=== PATIENT | male | born 1955 | race Two or more races ===

== ENCOUNTER → 2022-11-27 14:56 | Outpatient (BNVA) | payer MEDICARE, MEDICAID, SELFPAY | PROVIDERS: PCP Internal Medicine Rheumatology; Visit Provider Internal Medicine Rheumatology | DX: M65.9 Synovitis and tenosynovitis, unspecified (principal); M17.0 Bilateral primary osteoarthritis of knee; M06.9 Rheumatoid arthritis, unspecified; Z79.60 Long term (current) use of unspecified immunomodulators and immunosuppressants | CPT/HCPCS: 20550; 99212 ==

== ENCOUNTER 2022-12-27 09:44 | Outpatient (REF) | payer MEDICARE, MEDICAID, SELFPAY ==
[2022-12-27 10:32] LABS: MANUAL DIFF FLAG NO
[2022-12-27 10:38] LABS: Basophils Percent Auto 0.5 % (0-2); Eosinophils Absolute Auto 0.4 X10*3/uL (0.0-0.4); Eosinophils Percent Auto 7.1 % (0-4); Hematocrit 47.6 % (42.0-52.0); Hemoglobin 15.9 g/dl (14.0-18.0); Imm Gran Abs Auto 0.01 X10*3/uL (0.00-0.03); Imm Gran Pct Auto 0.2 % (0.0-0.4); Lymphocytes Absolute Auto 1.5 X10*3/uL (1.2-4.9); Lymphocytes Percent Auto 26.3 % (20-40); Mean Corpuscular HGB Conc 33.4 g/dl (31.0-36.0); Mean Corpuscular Hemoglobin 32.4 pg (27.0-33.0); Mean Corpuscular Volume 97.1 fL (80.0-98.0); Mean Platelet Volume 12.5 fL (9.4-12.4); Monocytes Absolute Auto 0.4 X10*3/uL (0.1-1.2); Monocytes Percent Auto 7.8 % (2-11); Neutrophils Absolute Auto 3.2 x10*3/uL (2.0-8.3); Neutrophils Percent Auto 58.1 % (45-73); Platelet Count 129 X10*3/uL (160-400); Red Cell Distribution Width 13.1 % (11.0-16.0); White Blood Count 5.5 X10*3/uL (4.8-10.8)
[2022-12-27 11:18] LABS: Alanine Aminotransferase 22 U/L (0-40); Albumin Level 4.1 g/dL (3.5-5.0); Alkaline Phosphatase 65 U/L (39-117); Anion Gap 13 (12-20); Aspartate Amino Transferase 16 U/L (5-37); Bilirubin Total 0.4 mg/dL (0.0-1.0); Blood Urea Nitrogen 16 mg/dL (9-16); C Reactive Protein 0.36 mg/dL (< or = 0.50); Calcium 9.9 mg/dL (8.4-10.2); Carbon Dioxide 25 mmol/L (22-29); Chloride 109 mmol/L (96-108); Estimated Glomerular Filt Rate > 60; Glucose Random 91 mg/dL (60-115); Potassium 4.6 mmol/L (3.3-5.1); Sodium 142 mmol/L (135-145)
[2022-12-27 11:24] LABS: Erythrocyte Sedimentation Rate 5 MM/HR (0-15)
== END 2022-12-27 09:45 | disposition home or self-care (01) ==
LOC: HO.10HDL 09:44
PROVIDERS: Visit Provider Internal Medicine Rheumatology
DX: M06.9 Rheumatoid arthritis, unspecified (principal); Z79.60 Long term (current) use of unspecified immunomodulators and immunosuppressants; Z79.899 Other long term (current) drug therapy
CPT/HCPCS: 36415; 80053; 85025; 85652; 86140

== ENCOUNTER 2023-01-09 08:05 | Outpatient (AMB) | payer MEDICARE, MEDICAID, SELFPAY ==
--- NOTE | 2023-01-09 08:06 | MHC.OFFVIS ---
Intake Vital Signs 01/09/23 08:08 Height 5 ft 7 in Weight 185 lb 13.595 oz BMI 29.1 BP 108/68 Blood Pressure Location Lt brachial Position Sitting Pulse 86 Pulse Source Pulse Oximeter Temp 97 F Temp Source Skin Pulse Oximetry (%) 96 Oxygen Delivery Method Room Air Intake Visit Reasons: Joint pain Intake Note: Here for joint pain. Would like to discuss medication tx. Paper Testing Supervisor Required: No Accompanied by: Self / Same As Patient Allergies tocilizumab [From Actemra] Adverse Reaction (Severe, Verified 01/09/23 08:06) Blister, muscle pain Sulfa (Sulfonamide Antibiotics) Adverse Reaction (Mild, Verified 01/09/23 08:06) Hives, Urticaria tetracycline Adverse Reaction (Mild, Verified 01/09/23 08:06) Hives, Urticaria HPI HPI Comments History of Present Illness Details The patient returns for evaluation of his rheumatoid arthritis and flexor tenosynovitis. I had injected the 3rd and 4th flexor tendon sheaths in the left hand at last visit and now they are doing okay. He reports some catching and pain in the right 3rd flexor tendon. There is discomfort across the PIP joints and occasionally around the elbows. He remains on methotrexate 20 mg weekly with folic acid 1 mg daily and meloxicam 15 mg daily. He seems to be tolerating these medications without any problems. There still is intermittent hand numbness but that seems to be not as bothersome as previously. His fingers in the left hand function better. [facility] Medical History (Updated 11/27/22 @ 17:02 by Aren Hawley MD) Arthralgia GERD (gastroesophageal reflux disease) Hyperlipidemia Osteoarthritis of both knees Rheumatoid arthritis Surgical History H/O arthroscopic knee surgery H/O prostatectomy History of carpal tunnel release of both wrists Hx of colonoscopy Family History Father Stroke Social History (Updated 01/09/23 @ 08:12 by NANO Hebert) Alcohol intake: former Patient Tobacco Use Status: Former Tobacco user Years Smoked: Ocassionally smokes Hookah Current occupational status: retired Review of Systems Const Details: Negative for appetite change, weight change, fever, chills, malaise and fatigue Eyes Details: Negative for vision change, dry eyes,headaches and dizziness ENT Details: Negative for hearing change, tinnitus, oral ulcer, nose bleeds and oral dryness. Card Details: Negative chest pain, edema and syncope Resp Details: Negative for SOB, cough and wheezing GI Details: Negative indigestion/heartburn, nausea, abdominal pain, bowel changes, diarrhea, constipation and bloody stool. Santiago/Lymph Details: Negative for excessive bruising or bleeding. Physical Exam Vital Signs: Last Vital Signs Temp 97 F 01/09/23 08:08 Pulse 86 01/09/23 08:08 BP 108/68 01/09/23 08:08 Pulse Ox 96 01/09/23 08:08 Oxygen Delivery Method Room Air 01/09/23 08:08 BMI result Body Mass Index 29.1 APPEARANCE: Patient in no acute distress EYES no redness, pupils equal and reactive to light, eyelids normal Cervical Spine:.? Mild discomfort with extremes of normal range of motion.? Some cervical muscle tenderness. Thoracic Spine:.? No scoliosis.? No tenderness on palpation. Lumbar Spine:.? Alignment normal.? Full range of motion without pain, no tenderness. Chest Wall:.? No tenderness, swelling, increased warmth or erythema. Hands:.? Right:? There is some pain with range of motion at the 3rd and 4th fingers and some triggering at the 3rd and 4th fingers; the tenderness and triggering is more prominent at the 3rd finger.? Today there is no MCP tenderness or swelling. There is some mild bony enlargement with tenderness at the thumb IP in all the PIP joints.? ? There is no sensory loss or thenar atrophy.? Left: Pain-free motion of the fingers. No flexor tendon triggering or tenderness. No MCP swelling or tenderness. There is some slight thickening at the PIP joints and they are minimally tender. No sensory loss or thenar atrophy.? Wrists:.? Mild pain with flexion or extension at 75 degrees with some slight dorsal tenderness but no swelling, increased warmth or erythema. Elbows:. Normal pain-free range of motion without tenderness, swelling, increased warmth or erythema over the joint spaces. There is some slight lateral epicondylar tenderness. Shoulders:.?? Full range of motion with mild discomfort at the extremes of range of motion.? There is slight anterior and posterior tenderness without adenopathy, abductor weakness, soft tissue swelling, increased warmth or erythema. Hips:? Full range of motion with some mild lumbar discomfort at the extremes of internal and external rotation. No groin pain with motion.. Hip bursa:.? No tenderness. Knees:.?? Normal pain-free range of motion with mild patellofemoral crepitus.? There is bilateral medial compartment tenderness without effusions, soft tissue swelling, increased warmth or erythema.? Ankles:? Normal pain-free range of motion without tenderness, swelling, increased warmth or erythema. Feet:.? Normal pain-free range of motion with mild tenderness across the MTP joints.? There is 1st MTP bony enlargement but no soft tissue swelling, increased warmth or erythema. Tender points:.? Mild tenderness to digital palpation at the trapezius, second rib, lateral epicondyle, knees bilaterally. ? arge, no bleeding THROAT: Oral mucosa moist, no ulcerations NECK: No thyromegaly or masses, no adenopathy, trachea midline. HEART: Regulrar rhythm, S1-S2 heard, no murmurs, rubs or gallops. LUNG: Clear to percussion and auscultation ABD: Normal bowel sounds, no organomegaly, masses or tenderness. EXTREMITIES: No edema, no calf tenderness, normal peripheral pulses. NEURO: Oriented and alert x3. No focal weakness. Reflexes symmetric. Gait normal. SKIN: No inflammatory or neoplastic lesions. Normal color and turgor JOINT EXAM:.?? Cervical Spine:.? Full range of motion without pain; no tenderness. Thoracic Spine:.? No scoliosis.? No tenderness on palpation. Lumbar Spine:.? Alignment normal.? Full range of motion without pain, no tenderness. Chest Wall:.? No tenderness, swelling, increased warmth or erythema. Hands:.? Normal pain-free range of motion without tenderness, swelling, increased warmth or erythema. Able to make a full fist and has a good shot core drill operator helper strength. Wrists:.? Normal pain-free range of motion without tenderness, swelling, increased warmth or erythema. Elbows:. Normal pain-free range of motion without tenderness, swelling, increased warmth or erythema. Shoulders:.?? Full range of motion without pain. No tenderness, weakness, swelling, increased warmth or erythema. Hips:.? Full range of motion without pain. Hip bursa:.? No tenderness. Knees:.?? Normal pain-free range of motion without tenderness, swelling, increased warmth or erythema.? There is no effusion or crepitation Ankles:.? Normal pain-free range of motion without tenderness, swelling, increased warmth or erythema. Feet:.? Normal pain-free range of motion without tenderness, swelling, increased warmth or erythema. Tender points:.? No tenderness to digital palpation at the occiput, trapezius, second rib, lateral epicondyle, knees, greater trochanter and gluteal area bilaterally. ? Results Reviewed Results Reviewed: Laboratory Tests 12/27/22 12/27/22 12/27/22 09:50 09:50 09:50 WBC 5.5 Hgb 15.9 ESR 5 Creatinine 0.81 AST 16 ALT 22 C-Reactive Protein 0.36 Assessment & Plan Assessment & Plan (1) Flexor tenosynovitis of finger: Code(s): M65.9 - Synovitis and tenosynovitis, unspecified (2) Long-term use of immunosuppressant medication: Code(s): Z79.60 - longterm (current) use of unspecified immunomodulators and immunosuppressants (3) Rheumatoid arthritis: Comment: Methotrexate started 10/11 Methotrexate loosing effect 05/14- Humira added 06/17 - Xeljanz in place of Humira( Humira ineffective) 08/2021-11/2021 trial of [address]um[address] in place of Xeljanz Trial of Enbrel late 2021 - 09/2022 - not helpful Trial of Actemra - oral ulcers after 2nd dose Code(s): M06.9 - Rheumatoid arthritis, unspecified Plan At this point it appears the rheumatoid arthritis synovitis is controlled with current treatment. The lab work looks good so we will continue with the methotrexate and meloxicam as above. He is having some symptoms with discomfort in the PIP joints and that looks more like osteoarthritis than active RA. The flexor tenosynovitis on the left hand has improved with injection. I offered him today an injection in the 3rd and 4th flexor tendons on the right but he does not think it is bad enough at this point. We will continue with treatment and plan to see him back in 2 months. Lab work before that visit is recommended. Orders: Orders Alanine Aminotransferase Today M06.9 - Rheumatoid arthritis, unspecified, Z79.899 - Other buttermaker helper (current) drug therapy Aspartate Amino Transferase Today M06.9 - Rheumatoid arthritis, unspecified, Z79.899 - Other buttermaker helper (current) drug therapy Creatinine Today M06.9 - Rheumatoid arthritis, unspecified, Z79.899 - Other buttermaker helper (current) drug therapy C Reactive Protein Today M06.9 - Rheumatoid arthritis, unspecified Complete Blood Count Auto Diff Today M06.9 - Rheumatoid arthritis, unspecified, Z79.899 - Other group home (current) drug therapy Erythrocyte Sedimentation Rate Today M06.9 - Rheumatoid arthritis, unspecified Coding Level of Care Code Est Pt Level 3 (42211) Diagnoses Flexor tenosynovitis of finger M65.9 Long-term use of immunosuppressant medication Z79.60 Rheumatoid arthritis M06.9
[2023-01-09 08:08] VITALS: BP 108/68; PULSE 86; TEMP 36.1; O2SAT 96; BMI 29.1
== END 2023-01-09 08:40 | disposition home or self-care (01) ==
PROVIDERS: PCP Internal Medicine Rheumatology; Visit Provider Internal Medicine Rheumatology
DX: M65.9 Synovitis and tenosynovitis, unspecified (principal); Z79.60 Long term (current) use of unspecified immunomodulators and immunosuppressants; M06.9 Rheumatoid arthritis, unspecified
CPT/HCPCS: 99213

== ENCOUNTER → 2023-01-09 08:05 | Outpatient (BNVA) | payer MEDICARE, MEDICAID, SELFPAY | PROVIDERS: PCP Internal Medicine Rheumatology; Visit Provider Internal Medicine Rheumatology | DX: M65.9 Synovitis and tenosynovitis, unspecified (principal); M06.9 Rheumatoid arthritis, unspecified; Z79.631 Long term (current) use of antimetabolite agent | CPT/HCPCS: 99212 ==

== ENCOUNTER 2023-03-07 10:40 | Outpatient (REF) | payer MEDICARE, MEDICAID, SELFPAY | END 2023-03-07 10:41 | disposition home or self-care (01) | LOC: HO.10HDL 10:40 | PROVIDERS: Visit Provider Internal Medicine Rheumatology | DX: M06.9 Rheumatoid arthritis, unspecified (principal); Z79.899 Other long term (current) drug therapy | CPT/HCPCS: 36415; 82565; 84450; 84460; 85025; 85652; 86140 ==

== ENCOUNTER 2023-03-12 15:09 | Outpatient (AMB) | payer MEDICARE, MEDICAID, SELFPAY ==
[2023-03-12 15:28] VITALS: BP 100/72; PULSE 106; O2SAT 96; BMI 29.4
--- NOTE | 2023-03-12 15:28 | MHC.OFFVIS ---
Intake Vital Signs 03/12/23 15:28 Height 5 ft 7 in Weight 187 lb 9.814 oz BMI 29.4 BP 100/72 Blood Pressure Location Lt brachial Position Sitting Pulse 106 H Pulse Source Pulse Oximeter Pulse Oximetry (%) 96 Oxygen Delivery Method Room Air Intake Visit Reasons: ra Intake Note: Patient presents today to follow up on RA. c/o multiple joint pain Allergies tocilizumab [From Actemra] Adverse Reaction (Severe, Verified 03/12/23 15:31) Blister, muscle pain Sulfa (Sulfonamide Antibiotics) Adverse Reaction (Mild, Verified 03/12/23 15:31) Hives, Urticaria tetracycline Adverse Reaction (Mild, Verified 03/12/23 15:31) Hives, Urticaria HPI HPI Comments History of Present Illness Details The patient returns for evaluation of his rheumatoid arthritis and osteoarthritis. He remains on 20 mg weekly methotrexate, folic acid 1 mg daily, and meloxicam 15 mg daily. He continues to report fairly widespread pain mostly in the hands but also in the shoulders, lower back, knees and feet. He also has some stiffness in the mornings particularly in the hands. There is occasional catching of the 4th finger bilaterally. He was put on some Mounjaro weekly injections by his primary doctor for weight loss. That seems to be helping. [facility] Medical History (Updated 03/12/23 @ 16:38 by Aren Hawley MD) Hyperlipidemia GERD (gastroesophageal reflux disease) Rheumatoid arthritis Osteoarthritis of both knees Arthralgia Surgical History Hx of colonoscopy H/O arthroscopic knee surgery History of carpal tunnel release of both wrists H/O prostatectomy Family History Father Stroke Social History Alcohol intake: former Patient Tobacco Use Status: Former Tobacco user Years Smoked: Ocassionally smokes Hookah Current occupational status: retired Review of Systems Const Details: Some intentional weight loss. Fatigue is well. Negative for appetite change, fever, chills, malaise Eyes Details: Negative for vision change, dry eyes,headaches and dizziness ENT Details: Negative for hearing change, tinnitus, oral ulcer, nose bleeds and oral dryness. Card Details: Negative chest pain, edema and syncope Resp Details: Negative for SOB, cough and wheezing GI Details: Negative indigestion/heartburn, nausea, abdominal pain, bowel changes, diarrhea, constipation and bloody stool. Psych Details: Negative for anxiety, depression and stress Endo Details: Negative for polyuria and polydypsia Santiago/Lymph Details: Negative for excessive bruising or bleeding. Physical Exam Vital Signs: Last Vital Signs Pulse 106 H 03/12/23 15:28 BP 100/72 03/12/23 15:28 Pulse Ox 96 03/12/23 15:28 Oxygen Delivery Method Room Air 03/12/23 15:28 BMI result Body Mass Index 29.4 APPEARANCE: Patient in no acute distress EYES no redness, pupils equal and reactive to light, eyelids normal. No temporal artery tenderness, redness or swelling. EXTREMITIES: No edema, no calf tenderness, normal peripheral pulses. NEURO: Oriented and alert x3. No focal weakness. Reflexes symmetric. Gait normal. No sensory loss SKIN: No inflammatory or neoplastic lesions. Normal color and turgor JOINT EXAM: Cervical Spine:.? Mild discomfort with extremes of normal range of motion.? Some cervical muscle tenderness. Thoracic Spine:.? No scoliosis.? No tenderness on palpation. Lumbar Spine:.? Alignment normal.? Full range of motion without pain, no tenderness. Chest Wall:.? No tenderness, swelling, increased warmth or erythema. Hands:.? Right:? There is some pain with range of motion at the 3rd and 4th fingers. There is mild tenderness at the 2nd through 4th MCP joints without swelling. There is some mild tenderness across the 2nd through 4th flexor tendons without triggering. There is some bony enlargement at the thumb IP and PIP joints without tenderness. There is no D IP joint swelling or tenderness. There is no thenar atrophy or sensory loss.? Left: Mild pain with the 3rd and think 4th finger range of motion. There is mild tenderness in the 1st MCP without swelling. There is tenderness along the 2nd through 4th flexor tendons without triggering. There is some mild nontender bony enlargement at the 2nd, 3rd and 4th 5th PIP joints. There is slight tenderness a the 4th PIP joint without swelling. There is some slight thickening at the PIP joints and they are minimally tender. No sensory loss or thenar atrophy.? Wrists:.? Mild pain with flexion or extension at 75 degrees with some slight dorsal tenderness but no swelling, increased warmth or erythema. Elbows:. Normal pain-free range of motion without tenderness, swelling, increased warmth or erythema over the joint spaces. There is some slight lateral epicondylar tenderness. Shoulders:.?? Full range of motion with mild discomfort at the extremes of range of motion.? There is slight anterior and posterior tenderness without adenopathy, abductor weakness, soft tissue swelling, increased warmth or erythema. Hips:? Full range of motion with some mild lumbar discomfort at the extremes of internal and external rotation. No groin pain with motion.. Hip bursa:.? Mild bilateral trochanteric tenderness. Knees:.?? Normal pain-free range of motion with mild patellofemoral crepitus.? There is bilateral medial compartment tenderness without effusions, soft tissue swelling, increased warmth or erythema.? Ankles:? Normal pain-free range of motion with mild tenderness but no swelling, increased warmth or erythema. Feet:? Normal pain-free range of motion with mild tenderness across the MTP joints.? There is 1st MTP bony enlargement but no soft tissue swelling, increased warmth or erythema. Tender points:? Mild tenderness to digital palpation at the trapezius, occiput, second rib, lateral epicondyle, knees and lateral hips bilaterally. Results Reviewed Results Reviewed: Laboratory Tests 03/07/23 10:50 WBC 6.3 Hgb 16.4 ESR 5 Creatinine 0.88 AST 17 ALT 23 C-Reactive Protein 0.59 H Assessment & Plan Assessment & Plan (1) Osteoarthritis of both knees: Code(s): M17.0 - Bilateral primary osteoarthritis of knee (2) Long-term use of immunosuppressant medication: Code(s): Z79.60 - prison (current) use of unspecified immunomodulators and immunosuppressants (3) Fibromyalgia: Code(s): M79.7 - Fibromyalgia (4) Flexor tenosynovitis of finger: Code(s): M65.9 - Synovitis and tenosynovitis, unspecified (5) Rheumatoid arthritis: Comment: Methotrexate started 10/11 Methotrexate loosing effect 05/14- Humira added 06/17 - Xeljanz in place of Humira( Humira ineffective) 08/2021-11/2021 trial of Olumiant in place of Xeljanz Trial of Enbrel late 2021 - 09/2022 - not helpful Trial of Actemra - oral ulcers after 2nd dose Code(s): M06.9 - Rheumatoid arthritis, unspecified Plan Today I do not see signs on exam of active inflammation from his rheumatoid arthritis. There are some findings of osteoarthritis in his knee x-rays. There also some findings of osteoarthritis on examination of his hands. There may be some flexor tenosynovitis bilaterally but there is minimal triggering. He does have many tender points so I think we dealing here with a picture of rheumatoid arthritis with fairly good control, osteoarthritis, and fibromyalgia. He continues to say he hurts all over and feels fatigued. This is characteristic of course for fibromyalgia. He is on a weight loss medication from his primary but it seems like his symptoms predated the use of that drug. We discussed the diagnosis of fibromyalgia. I told him that was not the only cause of his symptoms but I think that is the overriding issue causing his pain currently. I gave him some written information on fibromyalgia to review. He had been treated with some gabapentin at the [facility] earlier in the year and did not think it helped. We elected to go with some Cymbalta 30 mg daily. I told him to hope for some gradual improvement over the next month or 2 on that medication. The other medications can be continued as above as the lab work looks good. We will have him come back in 2 months with lab work before that visit. Today's evaluation and discussion of treatment took 34 minutes. Orders: Orders Erythrocyte Sedimentation Rate Today M06.9 - Rheumatoid arthritis, unspecified C Reactive Protein Today M06.9 - Rheumatoid arthritis, unspecified Alanine Aminotransferase Today M06.9 - Rheumatoid arthritis, unspecified, Z79.899 - Other retirement (current) drug therapy Complete Blood Count Auto Diff Today M06.9 - Rheumatoid arthritis, unspecified, Z79.899 - Other retirement (current) drug therapy Creatinine Today M06.9 - Rheumatoid arthritis, unspecified, Z79.899 - Other retirement (current) drug therapy Aspartate Amino Transferase Today M06.9 - Rheumatoid arthritis, unspecified, Z79.899 - Other intermediate card tender (current) drug therapy Medications: New duloxetine 30 mg PO DAILY 60 caps 1RF M79.7 - Fibromyalgia Coding Level of Care Code Est Pt Level 4 (67028) Diagnoses Osteoarthritis of both knees M17.0 Long-term use of immunosuppressant medication Z79.60 Fibromyalgia M79.7 Flexor tenosynovitis of finger M65.9 Rheumatoid arthritis M06.9
== END 2023-03-12 16:45 | disposition home or self-care (01) ==
PROVIDERS: PCP Internal Medicine Rheumatology; Visit Provider Internal Medicine Rheumatology
DX: M17.0 Bilateral primary osteoarthritis of knee (principal); Z79.60 Long term (current) use of unspecified immunomodulators and immunosuppressants; M79.7 Fibromyalgia; M65.9 Synovitis and tenosynovitis, unspecified; M06.9 Rheumatoid arthritis, unspecified
CPT/HCPCS: 99214

== ENCOUNTER → 2023-03-12 15:09 | Outpatient (BNVA) | payer MEDICARE, MEDICAID, SELFPAY | PROVIDERS: PCP Internal Medicine Rheumatology; Visit Provider Internal Medicine Rheumatology | DX: M17.0 Bilateral primary osteoarthritis of knee (principal); M79.7 Fibromyalgia; M65.9 Synovitis and tenosynovitis, unspecified; M06.9 Rheumatoid arthritis, unspecified; Z79.60 Long term (current) use of unspecified immunomodulators and immunosuppressants | CPT/HCPCS: 99212 ==

== ENCOUNTER 2023-05-10 13:05 | Outpatient (REF) | payer MEDICARE, MEDICAID, SELFPAY ==
[2023-05-10 13:16] LABS: MANUAL DIFF FLAG NO
[2023-05-10 14:06] LABS: Basophils Percent Auto 0.3 % (0-2); Eosinophils Absolute Auto 0.3 X10*3/uL (0.0-0.4); Eosinophils Percent Auto 5.2 % (0-4); Hematocrit 51.5 % (42.0-52.0); Hemoglobin 17.7 g/dl (14.0-18.0); Imm Gran Abs Auto 0.02 X10*3/uL (0.00-0.03); Imm Gran Pct Auto 0.3 % (0.0-0.4); Lymphocytes Absolute Auto 1.2 X10*3/uL (1.2-4.9); Lymphocytes Percent Auto 17.9 % (20-40); Mean Corpuscular HGB Conc 34.4 g/dl (31.0-36.0); Mean Corpuscular Hemoglobin 31.9 pg (27.0-33.0); Mean Corpuscular Volume 92.8 fL (80.0-98.0); Mean Platelet Volume 12.9 fL (9.4-12.4); Monocytes Absolute Auto 0.6 X10*3/uL (0.1-1.2); Monocytes Percent Auto 8.6 % (2-11); Neutrophils Absolute Auto 4.4 x10*3/uL (2.0-8.3); Neutrophils Percent Auto 67.7 % (45-73); Platelet Count 156 X10*3/uL (160-400); Red Blood Count 5.55 X10*6/uL (4.60-5.80); Red Cell Distribution Width 13.2 % (11.0-16.0); White Blood Count 6.5 X10*3/uL (4.8-10.8)
[2023-05-10 14:36] LABS: Alanine Aminotransferase 26 U/L (0-40); Aspartate Amino Transferase 21 U/L (5-37); C Reactive Protein 0.35 mg/dL (< or = 0.50); Estimated Glomerular Filt Rate > 60
[2023-05-10 14:53] LABS: Erythrocyte Sedimentation Rate 9 MM/HR (0-15)
== END 2023-05-10 13:06 | disposition home or self-care (01) ==
LOC: HO.LAB 13:05
PROVIDERS: PCP Nurse Practitioner Acute Care; Visit Provider Internal Medicine Rheumatology
DX: M06.9 Rheumatoid arthritis, unspecified (principal); Z79.899 Other long term (current) drug therapy
CPT/HCPCS: 36415; 82565; 84450; 84460; 85025; 85652; 86140

== ENCOUNTER 2023-05-17 09:56 | Outpatient (AMB) | payer MEDICARE, MEDICAID, SELFPAY ==
--- NOTE | 2023-05-17 10:03 | A.OFFVIS_ITS ---
Intake Vital Signs 05/17/23 10:04 Height 5 ft 7 in Weight 192 lb 14.472 oz BMI 30.2 BP 100/60 Blood Pressure Location Lt brachial Position Sitting Respiration 15 Pulse 79 Pulse Source Pulse Oximeter Temp 97.9 F Temp Source Tympanic Pulse Oximetry (%) 97 Oxygen Delivery Method Room Air Intake Visit Reasons: RA Family Psychologist Required: No Accompanied by: Self / Same As Patient Allergies tocilizumab [From Actemra] Adverse Reaction (Severe, Verified 05/17/23 10:06) Blister, muscle pain Sulfa (Sulfonamide Antibiotics) Adverse Reaction (Mild, Verified 05/17/23 10:06) Hives, Urticaria tetracycline Adverse Reaction (Mild, Verified 05/17/23 10:06) Hives, Urticaria Medication List - Last Reconciled 05/17/23 by Dulce Watt RN aspirin 81 mg PO DAILY atorvastatin 40 mg PO DAILY coenzyme Q10 100 mg PO DAILY duloxetine 30 mg PO DAILY folic acid 1 mg PO DAILY meloxicam 15 mg PO DAILY methotrexate sodium 20 mg PO QWEEK multivitamin 1 tab PO DAILY omeprazole 40 mg PO QAM tirzepatide (Mounjaro) mg subcut HPI HPI Comments History of Present Illness Details The patient returns for evaluation of his rheumatoid arthritis, osteoarthritis, and fibromyalgia. He remains on methotrexate 20 mg weekly, neo oxicam 15 mg daily, and folic acid 1 mg daily. At his last visit we added in Cymbalta 30 mg daily for his fibromyalgia symptoms. He says he still has many areas of muscle and joint pains but they seem to be more tolerable at present. He notes stiffness across the fingers and MCP regions every morning. There is occasional hand paresthesia. He does not seem to have had any side effects with his medications. He is also on Mounjaro injections for weight loss. He thinks he has lost 20 lb although our charts indicate more like a 2 lb weight change in the last 6 months. He said he was told that the Mounjaro might help his hand pain but it does not seem to have done so. [facility] Medical History (Updated 05/17/23 @ 14:38 by Aren Hawley MD) Hyperlipidemia GERD (gastroesophageal reflux disease) Rheumatoid arthritis Osteoarthritis of both knees Arthralgia Surgical History Hx of colonoscopy H/O arthroscopic knee surgery History of carpal tunnel release of both wrists H/O prostatectomy Family History Father Stroke Social History Alcohol intake: former Patient Tobacco Use Status: Former Tobacco user Years Smoked: Ocassionally smokes Hookah Current occupational status: retired Review of Systems Const Details: Negative for appetite change, weight change, fever, chills, malaise and fatigue Eyes Details: Negative for vision change, dry eyes,headaches and dizziness ENT Details: Negative for hearing change, tinnitus, oral ulcer, nose bleeds and oral dryness. Card Details: Negative chest pain, edema and syncope Resp Details: Negative for SOB, cough and wheezing GI Details: Negative indigestion/heartburn, nausea, abdominal pain, bowel changes, diarrhea, constipation and bloody stool. Neuro Details: Occasional hand numbness. Negative for epilepsy, palsy, stroke, changes in speech, and weakness Endo Details: Negative for polyuria and polydypsia Santiago/Lymph Details: Negative for excessive bruising or bleeding. Physical Exam Vital Signs: Last Vital Signs Temp 97.9 F 05/17/23 10:04 Pulse 79 05/17/23 10:04 Resp 15 05/17/23 10:04 BP 100/60 05/17/23 10:04 Pulse Ox 97 05/17/23 10:04 Oxygen Delivery Method Room Air 05/17/23 10:04 BMI result Body Mass Index 30.2 APPEARANCE: Patient in no acute distress EYES no redness, pupils equal and reactive to light, eyelids normal EXTREMITIES: No edema, no calf tenderness, normal peripheral pulses. Cervical Spine:.? Mild discomfort with extremes of normal range of motion.? Some cervical muscle tenderness. Thoracic Spine:.? No scoliosis.? No tenderness on palpation. Lumbar Spine:.? Alignment normal.? Full range of motion without pain, no tenderness. Chest Wall:.? No tenderness, swelling, increased warmth or erythema. Hands:.? Right:? There is some pain with range of motion at the 3rd and 4th fingers. There is mild tenderness at the 2nd through 4th MCP joints without swelling. There is some mild tenderness across the 2nd through 4th flexor tendons without triggering. There is some bony enlargement at the thumb IP and PIP joints the 2nd and 3rd PIP have some mild tenderness. There is no D IP joint swelling or tenderness. There is no thenar atrophy or sensory loss.? Left: Mild pain with the 3rd and 4th finger range of motion. There is mild tenderness in the 1st MCP without swelling. There is tenderness along the 2nd through 4th flexor tendons without triggering. There is some mild nontender bony enlargement at the 2nd, 3rd and 4th 5th PIP joints. There is slight tenderness a the 4th PIP joint without swelling. There is some slight thickening at the PIP joints and they are minimally tender. No sensory loss or thenar atrophy.? Wrists:.? Mild pain with flexion or extension at 75 degrees with some slight dorsal tenderness but no swelling, increased warmth or erythema. Elbows:. Normal pain-free range of motion without tenderness, swelling, increased warmth or erythema over the joint spaces. There is some slight lateral epicondylar tenderness. Shoulders:.?? Full range of motion with mild discomfort at the extremes of range of motion.? There is slight anterior and posterior tenderness without ad enopathy, abductor weakness, soft tissue swelling, increased warmth or erythema. Hips:? Full range of motion with some mild lumbar discomfort at the extremes of internal and external rotation. No groin pain with motion.. Hip bursa:.? Mild bilateral trochanteric tenderness. Knees:.?? Normal pain-free range of motion with mild patellofemoral crepitus.? There is bilateral medial compartment tenderness without effusions, soft tissue swelling, increased warmth or erythema.? Ankles:? Normal pain-free range of motion with mild tenderness but no swelling, increased warmth or erythema. Feet:? Normal pain-free range of motion with mild tenderness across the MTP joints.? There is 1st MTP bony enlargement but no soft tissue swelling, increased warmth or erythema. Tender points:? Mild tenderness to digital palpation at the trapezius, occiput, second rib, lateral epicondyle, knees and lateral hips bilaterally. NEURO: Oriented and alert x3. No focal weakness. Reflexes symmetric. Gait normal. Results Reviewed Results Reviewed: Laboratory Tests 05/10/23 13:15 WBC 6.5 Hgb 17.7 ESR 9 Creatinine 0.86 AST 21 ALT 26 C-Reactive Protein 0.35 [facility] [place] Result Report Patient: Garrett Ewing Date of Service: 07/09/19 ? ? Patient Gender: Male Ordering Provider: Aren Hawley : 1955 ? ? ? Final X-RAY EXAM OF HAND, 3+ VIEWS Exam Date: 07/09/2019 3:29 PM Ordering Diagnosis: Seronegative rheumatoid arthritis (HCC) ? BILATERAL HANDS, 3 VIEWS EACH ? HISTORY: Seronegative rheumatoid arthritis. ? FINDINGS: ? Right hand: There is mild degenerative spurring of the IP joint and 2nd DIP joint. ? Left hand: There is mild degenerative spurring of the IP joint. ? There is no acute fracture, malalignment, joint effusion, soft tissue abnormality, or radiopaque foreign body in either hand. ? IMPRESSION IMPRESSION: Mild degenerative changes as described. ? ? Reading Radiologist: Assessment & Plan Assessment & Plan (1) Fibromyalgia: Code(s): M79.7 - Fibromyalgia (2) Long-term use of immunosuppressant medication: Code(s): Z79.60 - [facility] (current) use of unspecified immunomodulators and immunosuppressants (3) Osteoarthritis of both knees: Code(s): M17.0 - Bilateral primary osteoarthritis of knee (4) Osteoarthritis of hands, bilateral: Code(s): M19.041 - Primary osteoarthritis, right hand; M19.042 - Primary osteoarthritis, left hand (5) Rheumatoid arthritis: Comment: Methotrexate started 10/11 Methotrexate loosing effect 05/14- Humira added 06/17 - Xeljanz in place of Humira( Humira ineffective) 08/2021-11/2021 trial of [address]um[address] in place of Xeljanz Trial of Enbrel late 2021 - 09/2022 - not helpful Trial of Actemra - oral ulcers after 2nd dose - methotrexate continued Code(s): M06.9 - Rheumatoid arthritis, unspecified Plan Rheumatoid arthritis with continued pain and some tenderness but the swelling seems more consistent with osteoarthritis in the fingers. The acute phase reactants remain normal. I think we dealing here with a combination of RA, osteoarthritis, and fibromyalgia. He did have some improvement with the addition of Cymbalta at 30 mg daily and we will cautiously push that up to 60 mg daily. The methotrexate and other meds will be continued as above. Lab work would be due again before his return visit in 3-4 months. Orders: Orders C Reactive Protein Today M06.9 - Rheumatoid arthritis, unspecified Erythrocyte Sedimentation Rate Today M06.9 - Rheumatoid arthritis, unspecified Aspartate Amino Transferase Today M06.9 - Rheumatoid arthritis, unspecified, Z79.899 - Other group home (current) drug therapy Creatinine Today M06.9 - Rheumatoid arthritis, unspecified, Z79.899 - Other group home (current) drug therapy Alanine Aminotransferase Today M06.9 - Rheumatoid arthritis, unspecified, Z79.899 - Other group home (current) drug therapy Complete Blood Count Auto Diff Today M06.9 - Rheumatoid arthritis, unspecified, Z79.899 - Other intermodal dispatcher (current) drug therapy Medications: New duloxetine 60 mg PO DAILY 30 caps 2RF M79.7 - Fibromyalgia Discontinued duloxetine Discontinued Reason: Doctor's Order 30 mg PO DAILY 60 caps 1RF M79.7 - Fibromyalgia Coding Level of Care Code Est Pt Level 3 (42080) Diagnoses Fibromyalgia M79.7 Long-term use of immunosuppressant medication Z79.60 Osteoarthritis of both knees M17.0 Osteoarthritis of hands, bilateral M19.041; M19.042 Rheumatoid arthritis M06.9
[2023-05-17 10:04] VITALS: BP 100/60; PULSE 79; RESP 15; TEMP 36.6; O2SAT 97; BMI 30.2
== END 2023-05-17 10:55 | disposition home or self-care (01) ==
PROVIDERS: PCP Internal Medicine Rheumatology; Visit Provider Internal Medicine Rheumatology
DX: M79.7 Fibromyalgia (principal); Z79.60 Long term (current) use of unspecified immunomodulators and immunosuppressants; M17.0 Bilateral primary osteoarthritis of knee; M19.041 Primary osteoarthritis, right hand; M19.042 Primary osteoarthritis, left hand; M06.9 Rheumatoid arthritis, unspecified
CPT/HCPCS: 99213

== ENCOUNTER → 2023-05-17 09:56 | Outpatient (BNVA) | payer MEDICARE, MEDICAID, SELFPAY | PROVIDERS: PCP Internal Medicine Rheumatology; Visit Provider Internal Medicine Rheumatology | DX: M79.7 Fibromyalgia (principal); M17.0 Bilateral primary osteoarthritis of knee; M06.9 Rheumatoid arthritis, unspecified; M19.041 Primary osteoarthritis, right hand; M19.042 Primary osteoarthritis, left hand; Z79.60 Long term (current) use of unspecified immunomodulators and immunosuppressants | CPT/HCPCS: 99212 ==

== ENCOUNTER 2023-08-15 14:08 | Outpatient (REF) | payer MEDICARE, MEDICAID, SELFPAY ==
[2023-08-15 14:20] LABS: MANUAL DIFF FLAG NO
[2023-08-15 15:00] LABS: Basophils Percent Auto 0.4 % (0-2); Eosinophils Absolute Auto 0.3 X10*3/uL (0.0-0.4); Eosinophils Percent Auto 3.9 % (0-4); Hematocrit 49.1 % (42.0-52.0); Imm Gran Abs Auto 0.02 X10*3/uL (0.00-0.03); Imm Gran Pct Auto 0.3 % (0.0-0.4); Lymphocytes Absolute Auto 1.5 X10*3/uL (1.2-4.9); Lymphocytes Percent Auto 18.7 % (20-40); Mean Corpuscular HGB Conc 34.6 g/dl (31.0-36.0); Mean Corpuscular Hemoglobin 31.7 pg (27.0-33.0); Mean Corpuscular Volume 91.4 fL (80.0-98.0); Mean Platelet Volume 12.5 fL (9.4-12.4); Monocytes Absolute Auto 0.6 X10*3/uL (0.1-1.2); Monocytes Percent Auto 7.1 % (2-11); Neutrophils Absolute Auto 5.4 x10*3/uL (2.0-8.3); Neutrophils Percent Auto 69.6 % (45-73); Platelet Count 138 X10*3/uL (160-400); Red Blood Count 5.37 X10*6/uL (4.60-5.80); Red Cell Distribution Width 13.5 % (11.0-16.0); White Blood Count 7.7 X10*3/uL (4.8-10.8)
[2023-08-15 15:27] LABS: Alanine Aminotransferase 23 U/L (0-40); Aspartate Amino Transferase 19 U/L (5-37); C Reactive Protein 1.46 mg/dL (< or = 0.50); Estimated Glomerular Filt Rate > 60
[2023-08-15 15:37] LABS: Erythrocyte Sedimentation Rate 4 MM/HR (0-15)
== END 2023-08-15 14:09 | disposition home or self-care (01) ==
LOC: HO.LAB 14:08
PROVIDERS: Visit Provider Internal Medicine Rheumatology
DX: M06.9 Rheumatoid arthritis, unspecified (principal); Z79.899 Other long term (current) drug therapy
CPT/HCPCS: 36415; 82565; 84450; 84460; 85025; 85652; 86140

== ENCOUNTER 2023-08-20 10:01 | Outpatient (AMB) | payer MEDICARE, MEDICAID, SELFPAY ==
[2023-08-20 10:16] VITALS: BP 106/68; PULSE 84; TEMP 36.3; O2SAT 93; BMI 26.4
--- NOTE | 2023-08-20 10:16 | MHC.OFFVIS ---
Intake Vital Signs 08/20/23 10:16 Height 5 ft 7 in Weight 168 lb 6.931 oz BMI 26.4 BP 106/68 Blood Pressure Location Rt brachial Position Sitting Pulse 84 Pulse Source Pulse Oximeter Temp 97.3 F Temp Source Skin Pulse Oximetry (%) 93 Oxygen Delivery Method Room Air Intake Visit Reasons: RA Intake Note: Patient last seen 05/17/[address] Hawley presents today for follow up and test results. Lots of joint pain, marsha hands. Firmware Manager Required: No Accompanied by: Self / Same As Patient Allergies tocilizumab [From Actemra] Adverse Reaction (Severe, Verified 08/20/23 10:19) Blister, muscle pain Sulfa (Sulfonamide Antibiotics) Adverse Reaction (Mild, Verified 08/20/23 10:19) Hives, Urticaria tetracycline Adverse Reaction (Mild, Verified 08/20/23 10:19) Hives, Urticaria Medication List - Last Reconciled 08/20/23 by Mary Grace Hernández MD aspirin 81 mg PO DAILY atorvastatin 40 mg PO DAILY coenzyme Q10 100 mg PO DAILY duloxetine 60 mg PO DAILY folic acid 1 mg PO DAILY meloxicam 15 mg PO DAILY methotrexate sodium 20 mg PO QWEEK multivitamin 1 tab PO DAILY omeprazole 40 mg PO QAM tirzepatide (Mounjaro) mg subcut HPI HPI Comments History of Present Illness Details 68-year-old male with seronegative RA returns for follow-up. He remains on methotrexate 20 mg weekly, folic acid 1 mg daily and meloxicam 15 mg daily. Duloxetine 60 mg daily. He stated that he took Mounjaro for approximately 4 months and lost about 30 lb. He stated that while he was on Mounjaro his joint pain was significantly better. Now he is unable to take Mounjaro as it is on back order. States that he has generalized joint pain and stiffness. Generalized stiffness of his fingers especially across his knuckles lasting at least 30 minutes as well as pain in his right shoulder and left knee. Most recent history by Dr. Hawley 04/2023: The patient returns for evaluation of his rheumatoid arthritis, osteoarthritis, and fibromyalgia. He remains on methotrexate 20 mg weekly, meloxicam 15 mg daily, and folic acid 1 mg daily. At his last visit we added in Cymbalta 30 mg daily for his fibromyalgia symptoms. He says he still has many areas of muscle and joint pains but they seem to be more tolerable at present. He notes stiffness across the fingers and MCP regions every morning. There is occasional hand paresthesia. He does not seem to have had any side effects with his medications. He is also on Mounjaro injections for weight loss. He thinks he has lost 20 lb although our charts indicate more like a 2 lb weight change in the last 6 months. He said he was told that the Mounjaro might help his hand pain but it does not seem to have done so. [facility] Medical History Hyperlipidemia GERD (gastroesophageal reflux disease) Rheumatoid arthritis Osteoarthritis of both knees Arthralgia Surgical History Hx of colonoscopy H/O arthroscopic knee surgery History of carpal tunnel release of both wrists H/O prostatectomy Family History Father Stroke Social History Alcohol intake: former Patient Tobacco Use Status: Former Tobacco user Years Smoked: Ocassionally smokes Hookah Current occupational status: retired Review of Systems [facility] Reports arthralgias, Reports limited range of motion and Reports stiffness Physical Exam Vital Signs: Last Vital Signs Temp 97.3 F 08/20/23 10:16 Pulse 84 08/20/23 10:16 BP 106/68 08/20/23 10:16 Pulse Ox 93 08/20/23 10:16 Oxygen Delivery Method Room Air 08/20/23 10:16 BMI result Body Mass Index 26.4 Const General: cooperative, healthy appearing and comfortable Nutritional Appearance: overweight Orientation/consciousness: patient oriented x3 Limitations: no limitations HEENT Head: Yes normocephalic and Yes atraumatic Mouth: moist mucous membranes Resp Effort & Inspection: normal respiratory effort and able to speak in complete sentences Auscultation: clear to auscultation bilaterally Cardio Rate: regular rate Rhythm: regular rhythm Skin General skin exam: no rashes or lesions noted Neuro General: patient oriented x3 Extrem Other: Osteoarthritic changes of both hands Tenderness across the flexor tendons back laterally from the 2nd through 5th fingers Significantly limited finger flexion bilaterally Significant stiffness of PIP joints Positive empty can test on the right Left knee pain with full flexion Results Reviewed Results Reviewed: Laboratory Tests 05/10/23 13:15 ? ? ? Final X-RAY EXAM OF HAND, 3+ VIEWS Exam Date: 07/09/2019 3:29 PM Ordering Diagnosis: Seronegative rheumatoid arthritis (HCC) ? BILATERAL HANDS, 3 VIEWS EACH ? HISTORY: Seronegative rheumatoid arthritis. ? FINDINGS: ? Right hand: There is mild degenerative spurring of the IP joint and 2nd DIP joint. ? Left hand: There is mild degenerative spurring of the IP joint. ? There is no acute fracture, malalignment, joint effusion, soft tissue abnormality, or radiopaque foreign body in either hand. ? IMPRESSION IMPRESSION: Mild degenerative changes as described. ? ? Reading Radiologist: Assessment & Plan Assessment & Plan (1) Rheumatoid arthritis: Comment: Methotrexate started 10/11 Methotrexate loosing effect 05/14- Humira added 06/17 - Xeljanz in place of Humira( Humira ineffective) 08/2021-11/2021 trial of [address]umiant in place of Xeljanz Trial of Enbrel late 2021 - 09/2022 - not helpful Trial of Actemra - oral ulcers after 2nd dose - methotrexate continued Code(s): M06.9 - Rheumatoid arthritis, unspecified Qualifiers: Rheumatoid arthritis location: multiple sites Rheumatoid factor presence: without rheumatoid factor Qualified Code(s): M06.09 - Rheumatoid arthritis without rheumatoid factor, multiple sites Plan: 68-year-old male with seronegative RA returns for follow-up. This is his 1st visit with me. he used to follow-up with Dr. Hawley. He is on methotrexate 20 mg weekly, meloxicam 15 mg daily and folic acid 1 mg daily. Continues to have generalized morning stiffness of his hands, multiple tendon joints, high inflammatory markers. Will need to add DMARDs. Patient had secondary nonresponse to Humira, Enbrel failed, Xeljanz and Olumiant failed, Actemra caused oral ulcers. Will need to switch mechanism of action. Discussed risks and benefits of [facility]. Patient agreed to proceed. Will start prior authorization for [facility] before next visit in 3 months (2) Long-term use of immunosuppressant medication: Code(s): Z79.60 - group home (current) use of unspecified immunomodulators and immunosuppressants (3) Latent tuberculosis: Comment: Positive QuantiFERON gold test March 2020 Last negative test was March 2018. Patient started on isoniazid and pyridoxine. He has Received INH for 9 months ending Jan 2021 Code(s): Z22.7 - Latent tuberculosis (4) Fibromyalgia: Code(s): M79.7 - Fibromyalgia Plan: Continue with duloxetine 60 mg daily Plan I spent 45 minutes reviewing patient's chart, evaluating patient, ordering diagnostic workup, counseling patient and documenting in the chart Orders: Orders Complete Blood Count Auto Diff 3 Months M06.9 - Rheumatoid arthritis, unspecified C Reactive Protein 3 Months M06.9 - Rheumatoid arthritis, unspecified Comprehensive Met. Panel 3 Months M06.9 - Rheumatoid arthritis, unspecified Erythrocyte Sedimentation Rate 3 Months M06.9 - Rheumatoid arthritis, unspecified Hepatitis A,B,C Profile 3 Months Z11.59 - Encounter for screening for other viral diseases Coding Level of Care Code Est Pt Level 5 (24391) Diagnoses Rheumatoid arthritis of multiple sites with negative rheumatoid factor M06.09 Rheumatoid arthritis location: multiple sites Rheumatoid factor presence: without rheumatoid factor Long-term use of immunosuppressant medication Z79.60 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 Fibromyalgia M79.7
== END 2023-08-20 10:47 | disposition home or self-care (01) ==
PROVIDERS: PCP Internal Medicine Rheumatology; Visit Provider Student in an Organized Health Care Education/Training Program
DX: M06.09 Rheumatoid arthritis without rheumatoid factor, multiple sites (principal); Z79.60 Long term (current) use of unspecified immunomodulators and immunosuppressants; Z22.7 Latent tuberculosis; M79.7 Fibromyalgia
CPT/HCPCS: 99214

== ENCOUNTER → 2023-08-20 10:01 | Outpatient (BNVA) | payer MEDICARE, MEDICAID, SELFPAY | PROVIDERS: PCP Internal Medicine Rheumatology; Visit Provider Student in an Organized Health Care Education/Training Program | DX: M06.09 Rheumatoid arthritis without rheumatoid factor, multiple sites (principal); M79.7 Fibromyalgia; Z22.7 Latent tuberculosis; Z79.60 Long term (current) use of unspecified immunomodulators and immunosuppressants | CPT/HCPCS: 99212 ==

== ENCOUNTER 2023-11-02 09:18 | Outpatient (REF) | payer MEDICARE, MEDICAID, SELFPAY ==
[2023-11-02 10:53] LABS: MANUAL DIFF FLAG NO
[2023-11-02 11:03] LABS: Basophils Percent Auto 0.4 % (0-2); Eosinophils Absolute Auto 0.3 X10*3/uL (0.0-0.4); Eosinophils Percent Auto 5.4 % (0-4); Hematocrit 49.5 % (42.0-52.0); Imm Gran Abs Auto 0.01 X10*3/uL (0.00-0.03); Imm Gran Pct Auto 0.2 % (0.0-0.4); Lymphocytes Absolute Auto 1.3 X10*3/uL (1.2-4.9); Lymphocytes Percent Auto 25.2 % (20-40); Mean Corpuscular HGB Conc 34.3 g/dl (31.0-36.0); Mean Corpuscular Hemoglobin 31.7 pg (27.0-33.0); Mean Corpuscular Volume 92.4 fL (80.0-98.0); Monocytes Absolute Auto 0.4 X10*3/uL (0.1-1.2); Monocytes Percent Auto 7.3 % (2-11); Neutrophils Absolute Auto 3.1 x10*3/uL (2.0-8.3); Neutrophils Percent Auto 61.5 % (45-73); Platelet Count 161 X10*3/uL (160-400); Red Blood Count 5.36 X10*6/uL (4.60-5.80)
[2023-11-02 11:34] LABS: Alanine Aminotransferase 18 U/L (0-40); Albumin Level 4.1 g/dL (3.5-5.0); Alkaline Phosphatase 74 U/L (39-117); Anion Gap 9 (12-20); Aspartate Amino Transferase 16 U/L (5-37); Bilirubin Total 0.7 mg/dL (0.0-1.0); Blood Urea Nitrogen 16 mg/dL (9-16); C Reactive Protein 0.13 mg/dL (< or = 0.50); Calcium 9.8 mg/dL (8.4-10.2); Carbon Dioxide 29 mmol/L (22-29); Chloride 106 mmol/L (96-108); Estimated Glomerular Filt Rate > 60; Glucose Random 95 mg/dL (60-115); Potassium 4.4 mmol/L (3.3-5.1); Sodium 140 mmol/L (135-145)
[2023-11-02 11:42] LABS: Erythrocyte Sedimentation Rate 3 MM/HR (0-15)
[2023-11-02 11:48] LABS: HBS Num1 0.71 mIU/mL (0-7.99); HBsAGNum1 0.27 S/CO (0.00-0.99); Hepatitis A Antibody IgM 0.37 Index (0-0.79); Hepatitis B Core Antibody Nonreactive (Nonreactive); Hepatitis B Surface Antigen Negative (Negative); ~Hepatitis A Antibody IgM Nonreactive (Nonreactive); ~Hepatitis B Surface Antibody NONREACTIVE (Nonreactive); ~Hepatitis C Antibody Nonreactive (Nonreactive)
== END 2023-11-02 09:19 | disposition home or self-care (01) ==
LOC: HO.10HDL 09:18
PROVIDERS: Visit Provider Student in an Organized Health Care Education/Training Program
DX: M06.9 Rheumatoid arthritis, unspecified (principal); Z11.59 Encounter for screening for other viral diseases; Z72.89 Other problems related to lifestyle
CPT/HCPCS: 36415; 80053; 85025; 85652; 86140; 86704; 86706; 86709; 86803; 87340

== ENCOUNTER 2023-11-13 09:04 | Outpatient (AMB) | payer MEDICARE, MEDICAID, SELFPAY ==
--- NOTE | 2023-11-13 09:16 | MHC.OFFVIS ---
Vital Signs 11/13/23 09:17 Height 5 ft 7 in Weight 171 lb 15.369 oz BMI 26.9 BP 98/58 L Blood Pressure Location Lt brachial Position Sitting Pulse 80 Pulse Source Pulse Oximeter Intake Visit Reasons: RA Intake Note: Patient present today for RA follow up visit. Patient c/o of increased pain on his joint, knees and left hip. Patient has had no relief with medication. 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 Accompanied by: Self / Same As Patient Allergies tocilizumab [From Actra] Adverse Reaction (Severe, Verified 11/13/23 09:25) Blister, muscle pain Sulfa (Sulfonamide Antibiotics) Adverse Reaction (Mild, Verified 11/13/23 09:25) Hives, Urticaria tetracycline Adverse Reaction (Mild, Verified 11/13/23 09:25) Hives, Urticaria Medication List - Last Reconciled 11/13/23 by Mary Grace Hernández MD aspirin 81 mg PO DAILY atorvastatin 40 mg PO DAILY coenzyme Q10 100 mg PO DAILY duloxetine 60 mg PO DAILY folic acid 1 mg PO DAILY meloxicam 15 mg PO DAILY methotrexate sodium 20 mg PO QWEEK multivitamin 1 tab PO DAILY omeprazole 40 mg PO QAM tirzepatide (Mounjaro) mg subcut HPI Comments Details: 68-year-old male with seronegative RA returns for follow-up. He remains on methotrexate 20 mg weekly, folic acid 1 mg daily and Orencia weekly. Been on Orencia for 3 months now. He reports increased pain and swelling hands, inability to make a fist. Pain across his MCPs, fingers, flexor tendons. Can not make a fist. Mild bilateral knee pain, noticed right lower back pain that intermittently radiates down his lower extremity. Most recent history by Dr. Hawley 04/2023: The patient returns for evaluation of his rheumatoid arthritis, osteoarthritis, and fibromyalgia. He remains on methotrexate 20 mg weekly, meloxicam 15 mg daily, and folic acid 1 mg daily. At his last visit we added in Cymbalta 30 mg daily for his fibromyalgia symptoms. He says he still has many areas of muscle and joint pains but they seem to be more tolerable at present. He notes stiffness across the fingers and MCP regions every morning. There is occasional hand paresthesia. He does not seem to have had any side effects with his medications. He is also on Mounjaro injections for weight loss. He thinks he has lost 20 lb although our charts indicate more like a 2 lb weight change in the last 6 months. He said he was told that the Mounjaro might help his hand pain but it does not seem to have done so. [facility] Medical History Hyperlipidemia GERD (gastroesophageal reflux disease) Rheumatoid arthritis Osteoarthritis of both knees Arthralgia Surgical History Hx of colonoscopy H/O arthroscopic knee surgery History of carpal tunnel release of both wrists H/O prostatectomy Family History Father Stroke Social History Alcohol intake: former Patient Tobacco Use Status: Former Tobacco user Years Smoked: Ocassionally smokes Hookah Current occupational status: retired Review of Systems [facility] [place] Reports arthralgias, Reports limited range of motion and Reports stiffness Physical Exam Vital Signs: Last Vital Signs Pulse 80 11/13/23 09:17 BP 98/58 L 11/13/23 09:17 BMI result Body Mass Index 26.9 Const General: cooperative, healthy appearing and comfortable Nutritional Appearance: overweight Orientation/consciousness: patient oriented x3 Limitations: no limitations HEENT Head: Yes normocephalic and Yes atraumatic Mouth: moist mucous membranes Resp Effort & Inspection: normal respiratory effort and able to speak in complete sentences Auscultation: clear to auscultation bilaterally Cardio Rate: regular rate Rhythm: regular rhythm Skin General skin exam: no rashes or lesions noted Neuro General: patient oriented x3 Extrem Other: Osteoarthritic changes of both hands Tenderness across the flexor tendons bilaterally from the 2nd through 5th fingers Tenderness from 2nd through 5th MCPs bilaterally Bilateral positive MCP squeeze test Significantly limited finger flexion bilaterally Significant stiffness of PIP joints Positive empty can test on the right Results Reviewed Results Reviewed: Laboratory Tests 05/10/23 13:15 ? ? ? Final X-RAY EXAM OF HAND, 3+ VIEWS Exam Date: 07/09/2019 3:29 PM Ordering Diagnosis: Seronegative rheumatoid arthritis (HCC) ? BILATERAL HANDS, 3 VIEWS EACH ? HISTORY: Seronegative rheumatoid arthritis. ? FINDINGS: ? Right hand: There is mild degenerative spurring of the IP joint and 2nd DIP joint. ? Left hand: There is mild degenerative spurring of the IP joint. ? There is no acute fracture, malalignment, joint effusion, soft tissue abnormality, or radiopaque foreign body in either hand. ? IMPRESSION IMPRESSION: Mild degenerative changes as described. ? ? Reading Radiologist: Assessment & Plan Assessment & Plan (1) Rheumatoid arthritis: Comment: Methotrexate started 10/11 Methotrexate loosing effect 05/14- Humira added 06/17 - Xeljanz in place of Humira( Humira ineffective) 08/2021-11/2021 trial of Olumiant in place of Xeljanz Trial of Enbrel late 2021 - 09/2022 - not helpful Trial of Actemra - oral ulcers after 2nd dose - methotrexate continued Orencia 07/2023 - DC 10/2023 ineffective Code(s): M06.9 - Rheumatoid arthritis, unspecified Category: Medical Qualifiers: Rheumatoid arthritis location: multiple sites Rheumatoid factor presence: without rheumatoid factor Qualified Code(s): M06.09 - Rheumatoid arthritis without rheumatoid factor, multiple sites Plan: 68-year-old male with seronegative RA returns for follow-up. He is on methotrexate 20 mg weekly, folic acid 1 mg daily and Orencia 125 mg weekly. He has been on Orencia for 3 months now without any improvement. Continues to have use pain and stiffness across his knuckles, fingers, can barely make a fist. Will need to change DMARDs. States that he felt the best on Humira. We discussed potentially switching to Rinvoq. Given patient's age and smoking history he would be at some risk of developing side effects to LOUIE inhibitors. Discussed switching to Simponi. Patient agreed to proceed. Will start prior authorization for Simponi. 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 Patient started on isoniazid and pyridoxine. He has Received INH for 9 months ending Jan 2021 Code(s): Z22.7 - Latent tuberculosis Category: Medical (4) Fibromyalgia: Code(s): M79.7 - Fibromyalgia Category: Medical Plan: Continue with duloxetine 60 mg daily Plan I spent 45 minutes reviewing patient's chart, evaluating patient, ordering diagnostic workup, counseling patient and documenting in the chart Orders: Orders Comprehensive Met. Panel 3 Months M06.09 - Rheumatoid arthritis without rheumatoid factor, multiple sites C Reactive Protein 3 Months M06.09 - Rheumatoid arthritis without rheumatoid factor, multiple sites Erythrocyte Sedimentation Rate 3 Months M06.09 - Rheumatoid arthritis without rheumatoid factor, multiple sites Complete Blood Count Auto Diff 3 Months M06.09 - Rheumatoid arthritis without rheumatoid factor, multiple sites Coding Level of Care Code Est Pt Level 5 (04703) Complex EM visit Add On G2211 Diagnoses Rheumatoid arthritis of multiple sites with negative rheumatoid factor M06.09 Rheumatoid arthritis location: multiple sites Rheumatoid factor presence: without rheumatoid factor Long-term use of immunosuppressant medication Z79.60 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 Fibromyalgia M79.7
[2023-11-13 09:17] VITALS: BP 98/58; PULSE 80; BMI 26.9
== END 2023-11-13 10:00 | disposition home or self-care (01) ==
PROVIDERS: PCP Internal Medicine Rheumatology; Visit Provider Student in an Organized Health Care Education/Training Program
DX: M06.09 Rheumatoid arthritis without rheumatoid factor, multiple sites (principal); Z79.60 Long term (current) use of unspecified immunomodulators and immunosuppressants; Z22.7 Latent tuberculosis; M79.7 Fibromyalgia
CPT/HCPCS: 99215; G2211

== ENCOUNTER → 2023-11-13 09:04 | Outpatient (BNVA) | payer MEDICARE, MEDICAID, SELFPAY | PROVIDERS: PCP Internal Medicine Rheumatology; Visit Provider Student in an Organized Health Care Education/Training Program | DX: M06.09 Rheumatoid arthritis without rheumatoid factor, multiple sites (principal); M79.7 Fibromyalgia; Z79.60 Long term (current) use of unspecified immunomodulators and immunosuppressants; Z79.899 Other long term (current) drug therapy; Z22.7 Latent tuberculosis | CPT/HCPCS: 99212 ==

== ENCOUNTER 2023-12-26 11:49 | Outpatient (REF) | payer MEDICARE, MEDICAID, SELFPAY ==
[2023-12-26 12:27] LABS: MANUAL DIFF FLAG NO
[2023-12-26 12:37] LABS: Basophils Percent Auto 0.5 % (0-2); Eosinophils Absolute Auto 0.4 X10*3/uL (0.0-0.4); Eosinophils Percent Auto 6.7 % (0-4); Hematocrit 48.9 % (42.0-52.0); Hemoglobin 16.8 g/dl (14.0-18.0); Imm Gran Abs Auto 0.01 X10*3/uL (0.00-0.03); Imm Gran Pct Auto 0.2 % (0.0-0.4); Lymphocytes Absolute Auto 1.6 X10*3/uL (1.2-4.9); Lymphocytes Percent Auto 27.8 % (20-40); Mean Corpuscular HGB Conc 34.4 g/dl (31.0-36.0); Mean Corpuscular Volume 93.1 fL (80.0-98.0); Mean Platelet Volume 12.1 fL (9.4-12.4); Monocytes Absolute Auto 0.4 X10*3/uL (0.1-1.2); Monocytes Percent Auto 7.4 % (2-11); Neutrophils Absolute Auto 3.2 x10*3/uL (2.0-8.3); Neutrophils Percent Auto 57.4 % (45-73); Platelet Count 154 X10*3/uL (160-400); Red Blood Count 5.25 X10*6/uL (4.60-5.80); Red Cell Distribution Width 13.9 % (11.0-16.0); White Blood Count 5.6 X10*3/uL (4.8-10.8)
[2023-12-26 13:15] LABS: Alanine Aminotransferase 28 U/L (0-40); Albumin Level 4.2 g/dL (3.5-5.0); Alkaline Phosphatase 70 U/L (39-117); Anion Gap 9 (12-20); Aspartate Amino Transferase 21 U/L (5-37); Bilirubin Total 0.9 mg/dL (0.0-1.0); Blood Urea Nitrogen 17 mg/dL (9-16); C Reactive Protein 0.24 mg/dL (< or = 0.50); Calcium 10.2 mg/dL (8.4-10.2); Carbon Dioxide 28 mmol/L (22-29); Chloride 108 mmol/L (96-108); Estimated Glomerular Filt Rate > 60; Glucose Random 108 mg/dL (60-115); Potassium 4.1 mmol/L (3.3-5.1); Sodium 141 mmol/L (135-145)
[2023-12-26 13:16] LABS: Erythrocyte Sedimentation Rate 2 MM/HR (0-15)
== END 2023-12-26 11:50 | disposition home or self-care (01) ==
LOC: HO.10HDL 11:49
PROVIDERS: Visit Provider Student in an Organized Health Care Education/Training Program
DX: M06.09 Rheumatoid arthritis without rheumatoid factor, multiple sites (principal)
CPT/HCPCS: 36415; 80053; 85025; 85652; 86140

== ENCOUNTER 2024-02-15 15:19 | Outpatient (AMB) | payer MEDICARE, MEDICAID, SELFPAY ==
[2024-02-15 15:22] VITALS: BP 120/64; PULSE 82; O2SAT 98; BMI 25.5
--- NOTE | 2024-02-15 15:22 | MHC.OFFVIS ---
Vital Signs 02/15/24 15:22 Height 5 ft 7 in Weight 163 lb BMI 25.5 BP 120/64 Blood Pressure Location Lt brachial Position Sitting Pulse 82 Pulse Source Pulse Oximeter Pulse Oximetry (%) 98 Oxygen Delivery Method Room Air Intake Visit Reasons: RA Intake Note: Patient presents today for follow up on RA and lab review, last seen in the office on 11/13/2023. The patient would like to talk about the Symponi today, he states the pain is only 20% gone. Allergies tocilizumab [From Actemra] Adverse Reaction (Severe, Verified 02/15/24 15:26) Blister, muscle pain Sulfa (Sulfonamide Antibiotics) Adverse Reaction (Mild, Verified 02/15/24 15:26) Hives, Urticaria tetracycline Adverse Reaction (Mild, Verified 02/15/24 15:26) Hives, Urticaria Medication List - Last Reconciled 02/15/24 by Mary Grace Hernández MD aspirin 81 mg PO DAILY atorvastatin 40 mg PO DAILY coenzyme Q10 100 mg PO DAILY duloxetine 60 mg PO DAILY folic acid 1 mg PO DAILY meloxicam 15 mg PO DAILY methotrexate sodium 20 mg PO QWEEK multivitamin 1 tab PO DAILY omeprazole 40 mg PO QAM Simponi (golimumab) 50 mg (0.5 mL) subcut Q30D NS tirzepatide (Mounjaro) mg subcut HPI Comments Details: 68-year-old male with seronegative RA returns for follow-up. He started Simponi about 3 months ago, last injection was February 06. He remains on methotrexate 20 mg weekly. He states that Simponi provided about 25% relief. He states that now he can make a fist with his right hand.. He continues to have some pain swelling and stiffness of his hand but improved. Most recent history by Dr. Hawley 04/2023: The patient returns for evaluation of his rheumatoid arthritis, osteoarthritis, and fibromyalgia. He remains on methotrexate 20 mg weekly, meloxicam 15 mg daily, and folic acid 1 mg daily. At his last visit we added in Cymbalta 30 mg daily for his fibromyalgia symptoms. He says he still has many areas of muscle and joint pains but they seem to be more tolerable at present. He notes stiffness across the fingers and MCP regions every morning. There is occasional hand paresthesia. He does not seem to have had any side effects with his medications. He is also on Mounjaro injections for weight loss. He thinks he has lost 20 lb although our charts indicate more like a 2 lb weight change in the last 6 months. He said he was told that the Mounjaro might help his hand pain but it does not seem to have done so. [facility] Medical History Hyperlipidemia GERD (gastroesophageal reflux disease) Rheumatoid arthritis Osteoarthritis of both knees Arthralgia Surgical History Hx of colonoscopy H/O arthroscopic knee surgery History of carpal tunnel release of both wrists H/O prostatectomy Family History Father Stroke Social History Alcohol intake: former Patient Tobacco Use Status: Former Tobacco user Years Smoked: Ocassionally smokes Hookah Current occupational status: retired Review of Systems [facility] [place] arthralgias, Reports limited range of motion and Reports stiffness Physical Exam Vital Signs: Last Vital Signs Pulse 82 02/15/24 15:22 BP 120/64 02/15/24 15:22 Pulse Ox 98 02/15/24 15:22 Oxygen Delivery Method Room Air 02/15/24 15:22 BMI result Body Mass Index 25.5 Const General: cooperative, healthy appearing and comfortable Nutritional Appearance: overweight Orientation/consciousness: patient oriented x3 Limitations: no limitations HEENT Head: Yes normocephalic and Yes atraumatic Mouth: moist mucous membranes Resp Effort & Inspection: normal respiratory effort and able to speak in complete sentences Auscultation: clear to auscultation bilaterally Cardio Rate: regular rate Rhythm: regular rhythm Skin General skin exam: no rashes or lesions noted Neuro General: patient oriented x3 Extrem Other: Osteoarthritic changes of both hands Subtle puffiness of his MCPs bilaterally Bilateral positive MCP squeeze test Multiple tender MCPs bilaterally Significantly improved right hand finger information lead. Patient can make a fist with a good information lead today Still can not make a full fist with the left hand. But there is significantly improved flexion at the PIPs Patient global 6 Physician global:5 Swollen joint count: 7 Tender joint count: 8 total CDAI: 27 Results Reviewed Results Reviewed: Laboratory Tests 05/10/23 13:15 ? ? ? Final X-RAY EXAM OF HAND, 3+ VIEWS Exam Date: 07/09/2019 3:29 PM Ordering Diagnosis: Seronegative rheumatoid arthritis (HCC) ? BILATERAL HANDS, 3 VIEWS EACH ? HISTORY: Seronegative rheumatoid arthritis. ? FINDINGS: ? Right hand: There is mild degenerative spurring of the IP joint and 2nd DIP joint. ? Left hand: There is mild degenerative spurring of the IP joint. ? There is no acute fracture, malalignment, joint effusion, soft tissue abnormality, or radiopaque foreign body in either hand. ? IMPRESSION IMPRESSION: Mild degenerative changes as described. ? ? Reading Radiologist: Assessment & Plan Assessment & Plan (1) Rheumatoid arthritis: Comment: Methotrexate started 10/11 Methotrexate loosing effect 05/14- Humira added 06/17 - Xeljanz in place of Humira( Humira ineffective) 08/2021-11/2021 trial of Olumiant in place of Xeljanz Trial of Enbrel late 2021 - 09/2022 - not helpful Trial of Actemra - oral ulcers after 2nd dose - methotrexate continued Orencia 07/2023 - DC 10/2023 ineffective Simponi SQ 10/2023 partially effective Code(s): M06.9 - Rheumatoid arthritis, unspecified Category: Medical Qualifiers: Rheumatoid arthritis location: multiple sites Rheumatoid factor presence: without rheumatoid factor Qualified Code(s): M06.09 - Rheumatoid arthritis without rheumatoid factor, multiple sites Plan: 68-year-old male with seronegative RA returns for follow-up. He is on methotrexate 20 mg weekly, folic acid 1 mg daily and Simponi 50 mg subcutaneously Q 30 days. He has been on Simponi for the last 3 months. There is some noticeable improvement however patient continues to have multiple swollen and tender joints. We will need to make a change. Discussed Simponi Aria infusions. Patient agreed to proceed. Will start prior authorization for Simponi Aria. DC Simponi subQ injections at this time. Patient to start the 1st dose of Simponi Aria infusions March 08 at the earliest Continue methotrexate and folic acid as prescribed Labs before next visit in 3 months (2) Long-term use of immunosuppressant medication: Code(s): Z79.60 - intermediate (current) use of unspecified immunomodulators and immunosuppressants Category: Medical Plan: Monitor safety labs (3) Latent tuberculosis: Comment: Positive QuantiFERON gold test March 2020 Last negative test was March 2018. Patient started on isoniazid and pyridoxine. 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 Panel 3 Months M06.09 - Rheumatoid arthritis without rheumatoid factor, multiple sites, Z79.60 - intermediate (current) use of unspecified immunomodulators and immunosuppressants Erythrocyte Sedimentation Rate 3 Months M06.09 - Rheumatoid arthritis without rheumatoid factor, multiple sites, Z79.60 - intermediate (current) use of unspecified immunomodulators and immunosuppressants Coding Level of Care Code Est Pt Level 4 (81626) Diagnoses Rheumatoid arthritis of multiple sites with negative rheumatoid factor M06.09 Rheumatoid arthritis location: multiple sites Rheumatoid factor presence: without rheumatoid factor Long-term use of immunosuppressant medication Z79.60 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 Fibromyalgia M79.7
== END 2024-02-15 15:51 | disposition home or self-care (01) ==
PROVIDERS: PCP Internal Medicine Rheumatology; Visit Provider Student in an Organized Health Care Education/Training Program
DX: M06.09 Rheumatoid arthritis without rheumatoid factor, multiple sites (principal); Z79.60 Long term (current) use of unspecified immunomodulators and immunosuppressants; Z22.7 Latent tuberculosis; M79.7 Fibromyalgia
CPT/HCPCS: 99214

== ENCOUNTER → 2024-02-15 15:19 | Outpatient (BNVA) | payer MEDICARE, MEDICAID, SELFPAY | PROVIDERS: PCP Internal Medicine Rheumatology; Visit Provider Student in an Organized Health Care Education/Training Program | DX: M06.09 Rheumatoid arthritis without rheumatoid factor, multiple sites (principal); M79.7 Fibromyalgia; Z22.7 Latent tuberculosis; Z79.60 Long term (current) use of unspecified immunomodulators and immunosuppressants | CPT/HCPCS: 99212 ==

== ENCOUNTER 2024-05-15 15:22 | Outpatient (AMB) | payer MEDICARE, MEDICAID, SELFPAY ==
--- NOTE | 2024-05-15 15:24 | MHC.OFFVIS ---
Vital Signs 05/15/24 15:28 Height 5 ft 7 in Weight 170 lb 3.15 oz BMI 26.7 BP 112/60 Blood Pressure Location Lt brachial Position Sitting Respiration 16 Pulse 87 Pulse Source Pulse Oximeter Pulse Oximetry (%) 95 Oxygen Delivery Method Room Air Intake Visit Reasons: RA Intake Note: Patient presents for RA. Allergies tocilizumab [From Actemra] Adverse Reaction (Severe, Verified 05/15/24 15:27) Blister, muscle pain Sulfa (Sulfonamide Antibiotics) Adverse Reaction (Mild, Verified 05/15/24 15:27) Hives, Urticaria tetracycline Adverse Reaction (Mild, Verified 05/15/24 15:27) Hives, Urticaria Medication List - Last Reconciled 05/15/24 by Mary Grace Hernández MD aspirin 81 mg PO DAILY atorvastatin 40 mg PO DAILY coenzyme Q10 100 mg PO DAILY duloxetine 60 mg PO DAILY folic acid 1 mg PO DAILY meloxicam 15 mg PO DAILY methotrexate sodium 20 mg PO QWEEK multivitamin 1 tab PO DAILY omeprazole 40 mg PO QAM Simponi (golimumab) 50 mg (0.5 mL) subcut Q30D NS tirzepatide (Mounjaro) mg subcut HPI Comments Details: 68-year-old male with seronegative RA returns for follow-up. A started Simponi infusions. Received the 1st 2 loading doses. Remains on methotrexate 20 mg weekly . He states that he feels much better overall. Feels that the infusions are more effective than the subcu injections. Can now make a full fist with both hands. Most recent history by Dr. Hawley 04/2023: The patient returns for evaluation of his rheumatoid arthritis, osteoarthritis, and fibromyalgia. He remains on methotrexate 20 mg weekly, meloxicam 15 mg daily, and folic acid 1 mg daily. At his last visit we added in Cymbalta 30 mg daily for his fibromyalgia symptoms. He says he still has many areas of muscle and joint pains but they seem to be more tolerable at present. He notes stiffness across the fingers and MCP regions every morning. There is occasional hand paresthesia. He does not seem to have had any side effects with his medications. He is also on Mounjaro injections for weight loss. He thinks he has lost 20 lb although our charts indicate more like a 2 lb weight change in the last 6 months. He said he was told that the Mounjaro might help his hand pain but it does not seem to have done so. [facility] Medical History Hyperlipidemia GERD (gastroesophageal reflux disease) Rheumatoid arthritis Osteoarthritis of both knees Arthralgia Surgical History History of cervical spinal surgery Hx of colonoscopy H/O arthroscopic knee surgery History of carpal tunnel release of both wrists H/O prostatectomy Family History Father Stroke Social History Alcohol intake: former Patient Tobacco Use Status: Former Tobacco user Years Smoked: Ocassionally smokes Hookah Current occupational status: retired Review of Systems Musc Denies arthralgias, Denies joint swelling, Denies limited range of motion and Reports stiffness Physical Exam Vital Signs: Last Vital Signs Pulse 87 05/15/24 15:28 Resp 16 05/15/24 15:28 BP 112/60 05/15/24 15:28 Pulse Ox 95 05/15/24 15:28 Oxygen Delivery Method Room Air 05/15/24 15:28 BMI result Body Mass Index 26.7 Const General: cooperative, healthy appearing and comfortable Nutritional Appearance: overweight Orientation/consciousness: patient oriented x3 Limitations: no limitations HEENT Head: Yes normocephalic and Yes atraumatic Mouth: moist mucous membranes Resp Effort & Inspection: normal respiratory effort and able to speak in complete sentences Auscultation: clear to auscultation bilaterally Cardio Rate: regular rate Rhythm: regular rhythm Skin General skin exam: no rashes or lesions noted Neuro General: patient oriented x3 Extrem Other: Osteoarthritic changes of both hands No swelling or tenderness of MCPs or PIP is bilaterally Negative MCP squeeze test bilaterally 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 No elbow pain with full flexion-extension Normal pain-free range of motion of shoulders No knee pain with full flexion-extension bilaterally Assessment & Plan Assessment & Plan (1) Rheumatoid arthritis: Comment: Methotrexate started 10/11 Methotrexate loosing effect 05/14- Humira added 06/17 - Xeljanz in place of Humira( Humira ineffective) 08/2021-11/2021 trial of [address] in [address] of Xeljanz Trial of Enbrel late 2021 - 09/2022 - not helpful Trial of Actemra - oral ulcers after 2nd dose - methotrexate continued Orencia 07/2023 - DC 10/2023 ineffective Simponi SQ 10/2023 partially effective, changed to Simponi Aria infusions 02/2024 effective Code(s): M06.9 - Rheumatoid arthritis, unspecified Category: Medical Qualifiers: Rheumatoid arthritis location: multiple sites Rheumatoid factor presence: without rheumatoid factor Qualified Code(s): M06.09 - Rheumatoid arthritis without rheumatoid factor, multiple sites Plan: 68-year-old male with seronegative RA returns for follow-up. He is on methotrexate 20 mg weekly, folic acid 1 mg daily and received the 1st 2 loading doses of Simponi infusions. Feeling even better since after Simponi infusions were started. He can make a full fist on exam. There is no active synovitis. Continue current meds Labs before next visit in 4 months (2) Long-term use of immunosuppressant medication: Code(s): Z79.60 - skilled nursing (current) use of unspecified immunomodulators and immunosuppressants Category: Medical Plan: Monitor safety labs (3) Latent tuberculosis: Comment: Positive QuantiFERON gold test March 2020 Last negative test was March 2018. Patient started on isoniazid and pyridoxine. He has Received INH for 9 months ending Jan 2021 Code(s): Z22.7 - Latent tuberculosis Category: Medical (4) Fibromyalgia: Code(s): M79.7 - Fibromyalgia Category: Medical Plan: Continue with duloxetine 60 mg daily (5) Tobacco abuse counseling: Code(s): Z71.6 - Tobacco abuse counseling Category: Medical Plan: Continues to smoke hookah almost daily, advised patient to cut down and quit Plan I spent 25 minutes reviewing patient's chart, evaluating patient, ordering diagnostic workup, counseling patient and documenting in the chart Orders: Orders Comprehensive Met. Panel 4 Months M06.09 - Rheumatoid arthritis without rheumatoid factor, multiple sites, Z79.60 - skilled nursing (current) use of unspecified immunomodulators and immunosuppressants Erythrocyte Sedimentation Rate 4 Months M06.09 - Rheumatoid arthritis without rheumatoid factor, multiple sites, Z79.60 - skilled nursing (current) use of unspecified immunomodulators and immunosuppressants Complete Blood Count Auto Diff 4 Months M06.09 - Rheumatoid arthritis without rheumatoid factor, multiple sites, Z79.60 - skilled nursing (current) use of unspecified immunomodulators and immunosuppressants C Reactive Protein 4 Months M06.09 - Rheumatoid arthritis without rheumatoid factor, multiple sites, Z79.60 - skilled nursing (current) use of unspecified immunomodulators and immunosuppressants Coding Level of Care Code Est Pt Level 4 (35145) Complex EM visit Add On G2211 Diagnoses Rheumatoid arthritis of multiple sites with negative rheumatoid factor M06.09 Rheumatoid arthritis location: multiple sites Rheumatoid factor presence: without rheumatoid factor Long-term use of immunosuppressant medication Z79.60 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 Fibromyalgia M79.7 Tobacco abuse counseling Z71.6
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
--- OUTSIDE RECORDS SUMMARY | 2024-05-15 15:24 | XMS_ITS ---
Author Organization [facility] Address [address] [place] [address] Care Team Providers Care Weight Reduction Specialist Name Role Phone VALDEZGLENN JARRETT Unavailable [phone] SAIDA NERI Unavailable [phone] REASON FOR VISIT CCM Encounters Encounter Location Date Provider Diagnosis [facility] [address] [facility] [address] [place] [address] 05/09/2024 SAIDA NERI PLAN OF TREATMENT Next Appt Details Provider Name:GLENN KINGSLEY, 07/21/2024 11:00:00 AM, [address] [facility], [facility] [address], [place], [address], Progress Notes * Matt CORTEZOB:1955 (68 yo M)Acc No.[id number]:05/09/2024 Patient:??Garrett CORTEZ :1955?Age:68 Y?Sex:Abdelrahman morro Address:[address] [place] [id number] * true * Date:??
--- OUTSIDE RECORDS SUMMARY | 2024-05-15 15:24 | XMS_ITS ---
Author Organization [facility] Address [address] [place] [address] Care Team Providers Care Quality Head Name Role Phone GLENN KINGSLEY Unavailable [phone] MEDICATIONS Medication SIG (Take, Route, Fr equency, Duration) Notes Start Date End Date Status HYDROmorphone HCl 4 MG 1/2 to 1 tablet a s needed severe pain Orally every 6 hrs for 10 days 04/14/2024 Active Encounters Encounter Location Date Provider Diagnosis [address] [place] [id number] 04/14/2024 GLENN KINGSLEY PLAN OF TREATMENT Medication Medication Name Sig Start Date Stop Date Notes HYDROmorphone HCl 4 MG 1/2 to 1 tablet a s needed severe pain Orally every 6 hrs for 10 days 04/14/2024 Next Appt Details Provider Name:GLENN KINGSLEY, 07/21/2024 11:00:00 AM, [address] [place] [address], [facility] [address], [place], [address], Progress Notes * Matt CORTEZOB:1955 (68 yo M)Acc No.[id number]:04/14/2024 Patient:??Garrett CORTEZ :1955?Age:68 Y?Sex:Abdelrahman hooker Address:[address] [place] [address] * Refills?? Refill HYDROmorphone HCl Tablet, 4 MG, Orally, 40 Tablet, 1/2 to 1 tablet as needed severe pain, every 6 hrs, 10 days, Refills=0 * true * Date:??
--- OUTSIDE RECORDS SUMMARY | 2024-05-15 15:25 | XMS_ITS | Patient Health Record ---
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 that are oxidized or particularly dangerous. HDL cholesterol can have a protective effect. Elevated triglycerides levels are also dangerous. An elevated triglyceride and HDL ratio could be a sign of insulin resistance. Statins, fibrates, niacin, fish oil, DHEA, can be beneficial in treatment of dyslipidemia. Lifestyle modification with exercise and appropriate nutrition can decrease the risk of atherosclerosis due to dyslipidemia. Of note, some information is being carried forward from prior records for informational purposes only and is being cited so that efficiency, safety and quality of the patient's care is not compromised This note was prepared using voice recognition software and direct typing Please excuse inadvertent shirt creaser or typing errors, or uncorrected word substitutions Although every attempt has been made by the provider to proofread this document, occasional misspellings and typographical errors may still be present Due to the previous pandemic, and the use of personal protective equipment (PPE) This may decrease voice recognition accuracy Inadvertent shirt creaser errors may occur 08/22/2023 Hx of prostatic malignancy (ICD-10 - Z85.46) Acute Concerns/Problem List: 08/22/2023 _update labs and CPE/MWV in the summer 2023 Patient to continue seeing subspecialists Chronic pain, osteoarthritis, rheumatoid arthritis and fibromyalgia Continue Cymbalta, and Biologics with rheumatology Continuing to affect activities of daily living and functionality especially his hands Prediabetes, A1c monitoring, continue GLP-1, Euglycemic at 5.4 Discussed the role of metformin and prediabetes We have discussed all FDA approved treatment modalities and medications for obesity and weight loss We have discussed the mechanism of GLP-1's/GIP I think this would be fantastic option for him given metabolic workup and body composition We have discussed the risks and benefits and side effects including/and not limited to Sarcopenia, intestinal obstruction, constipation, nausea, lethargy, headache There is no history of medullary thyroid cancer or multiple endocrine neoplasia There is also no history of cardiovascular disease, hypertension, palpitations, or arrhythmias In the setting of potential stimulant/amphetam ine use such as phentermine ASCVD is a stepwise approach for all adult patients, including those with known ASCVD This risk estimate is a standardized guideline to predict risk and recommend management strategies for those at risk of ASCVD Risk of cardiovascular event (Coronary or stroke or nonfatal [place] or stroke) In the next 10 years We discussed the role of cholesterol and atherosclerosis. Cholesterols broken down into some particles. Cholesterol very important for body and has an important role in the synthesis of various hormones and neurotransmitters. However, today's cholesterol can have potential complications. Small density LDL particles that are oxidized or particularly dangerous. HDL cholesterol can have a protective effect. Elevated triglycerides levels are also dangerous. An elevated triglyceride and HDL ratio could be a sign of insulin resistance. Statins, fibrates, niacin, fish oil, DHEA, can be beneficial in treatment of dyslipidemia. Lifestyle modification with exercise and appropriate nutrition can decrease the risk of atherosclerosis due to dyslipidemia. Of note, some information is being carried forward from prior records for informational purposes only and is being cited so that efficiency, safety and quality of the patient's care is not compromised This note was prepared using voice recognition software and direct typing Please excuse inadvertent shirt creaser or typing errors, or uncorrected word substitutions Although every attempt has been made by the provider to proofread this document, occasional misspellings and typographical errors may still be present Due to the previous pandemic, and the use of personal protective equipment (PPE) This may decrease voice recognition accuracy Inadvertent shirt creaser errors may occur 03/27/2024 Rheumatoid arthritis without rheumatoid factor, right knee (ICD-10 - M06.061) Continue with physiatry and pain management for lumbar radiculopathy and pain MRI of the lumbar spine is pending Continue with supportive care and pain medications RA, chronically managed by rheumatology getting monthly infusions Otherwise chronic conditions are stable Labs reviewed To get flu shot at pharmacy MOLST/HCP Discussed and Filed Of note, some information is being carried forward from prior records for informational purposes only and is being cited so that efficiency, safety and quality of the patient's care is not compromised This note was prepared using voice recognition software and direct typing Please excuse inadvertent shirt creaser or typing errors, or uncorrected word substitutions Although every attempt has been made by the provider to proofread this document, occasional misspellings and typographical errors may still be present Due to the previous pandemic, and the use of personal protective equipment (PPE) This may decrease voice recognition accuracy Inadvertent shirt creaser errors may occur 01/22/2024 Hx of prostatic malignancy (ICD-10 - Z85.46) [facility] Acute Concerns/Problem List: 01/22/2024 Chronic conditions are stable at this time Will see him back quarterly Discussed the role of metformin and prediabetes We have discussed all FDA approved treatment modalities and medications for obesity and weight loss We have discussed the mechanism of GLP-1's/GIP I think this would be fantastic option for him given metabolic workup and body composition We have discussed the risks and benefits and side effects including/and not limited to Sarcopenia, intestinal obstruction, constipation, nausea, lethargy, headache There is no history of medullary thyroid cancer or multiple endocrine neoplasia There is also no history of cardiovascular disease, hypertension, palpitations, or arrhythmias In the setting of potential stimulant/amphetam ine use such as phentermine ASCVD is a stepwise approach for all adult patients, including those with known ASCVD This risk estimate is a standardized guideline to predict risk and recommend management strategies for those at risk of ASCVD Risk of cardiovascular event (Coronary or stroke or nonfatal [place] or stroke) In the next 10 years We discussed the role of cholesterol and atherosclerosis. Cholesterols broken down into some particles. Cholesterol very important for body and has an important role in the synthesis of various hormones and neurotransmitters. However, today's cholesterol can have potential complications. Small density LDL particles that are oxidized or particularly dangerous. HDL cholesterol can have a protective effect. Elevated triglycerides levels are also dangerous. An elevated triglyceride and HDL ratio could be a sign of insulin resistance. Statins, fibrates, niacin, fish oil, DHEA, can be beneficial in treatment of dyslipidemia. Lifestyle modification with exercise and appropriate nutrition can decrease the risk of atherosclerosis due to dyslipidemia. Of note, some information is being carried forward from prior records for informational purposes only and is being cited so that efficiency, safety and quality of the patient's care is not compromised This note was prepared using voice recognition software and direct typing Please excuse inadvertent shirt creaser or typing errors, or uncorrected word substitutions Although every attempt has been made by the provider to proofread this document, occasional misspellings and typographical errors may still be present Due to the previous pandemic, and the use of personal protective equipment (PPE) This may decrease voice recognition accuracy Inadvertent shirt creaser errors may occur 05/08/2024 Pulmonary nodule, morro fuentes (ICD-10 - R91.1) Will see him back [...] software and direct typing Please excuse inadvertent shirt creaser or typing errors, or uncorrected word substitutions Although every attempt has been made by the provider to proofread this document, occasional misspellings and typographical errors may still be present Due to the previous pandemic, and the use of personal protective equipment (PPE) This may decrease voice recognition accuracy Inadvertent shirt creaser errors may occur 03/27/2024 Rheumatoid arthritis without rheumatoid factor, left knee (ICD-10 - M06.062) Continue with physiatry and pain management for lumbar radiculopathy and pain MRI of the lumbar spine is pending Continue with supportive care and pain medications RA, chronically managed by rheumatology getting monthly infusions Otherwise chronic conditions are stable Labs reviewed To get flu shot at pharmacy MOLST/HCP Discussed and Filed Of note, some information is being carried forward from prior records for informational purposes only and is being cited so that efficiency, safety and quality of the patient's care is not compromised This note was prepared using voice recognition software and direct typing Please excuse inadvertent shirt creaser or typing errors, or uncorrected word substitutions Although every attempt has been made by the provider to proofread this document, occasional misspellings and typographical errors may still be present Due to the previous pandemic, and the use of personal protective equipment (PPE) This may decrease voice recognition accuracy Inadvertent shirt creaser errors may occur 01/22/2024 Pure hypercholesterolemia (ICD-10 - E78.00) [facility] Acute Concerns/Problem List: 01/22/2024 Chronic conditions are stable at this time Will see him back quarterly Discussed the role of metformin and prediabetes We have discussed all FDA approved treatment modalities and medications for obesity and weight loss We have discussed the mechanism of GLP-1's/GIP I think this would be fantastic option for him given metabolic workup and body composition We have discussed the risks and benefits and side effects including/and not limited to Sarcopenia, intestinal obstruction, constipation, nausea, lethargy, headache There is no history of medullary thyroid cancer or multiple endocrine neoplasia There is also no history of cardiovascular disease, hypertension, palpitations, or arrhythmias In the setting of potential stimulant/amphetam ine use such as phentermine ASCVD is a stepwise approach for all adult patients, including those with known ASCVD This risk estimate is a standardized guideline to predict risk and recommend management strategies for those at risk of ASCVD Risk of cardiovascular event (Coronary or stroke or nonfatal [place] or stroke) In the next 10 years We discussed the role of cholesterol and atherosclerosis. Cholesterols broken down into some particles. Cholesterol very important for body and has an important role in the synthesis of various hormones and neurotransmitters. However, today's cholesterol can have potential complications. Small density LDL particles that are oxidized or particularly dangerous. HDL cholesterol can have a protective effect. Elevated triglycerides levels are also dangerous. An elevated triglyceride and HDL ratio could be a sign of insulin resistance. Statins, fibrates, niacin, fish oil, DHEA, can be beneficial in treatment of dyslipidemia. Lifestyle modification with exercise and appropriate nutrition can decrease the risk of atherosclerosis due to dyslipidemia. Of note, some information is being carried forward from prior records for informational purposes only and is being cited so that efficiency, safety and quality of the patient's care is not compromised This note was prepared using voice recognition software and direct typing Please excuse inadvertent shirt creaser or typing errors, or uncorrected word substitutions Although every attempt has been made by the provider to proofread this document, occasional misspellings and typographical errors may still be present Due to the previous pandemic, and the use of personal protective equipment (PPE) This may decrease voice recognition accuracy Inadvertent shirt creaser errors may occur 08/22/2023 Pure hypercholesterolemia (ICD-10 - E78.00) Acute Concerns/Problem List: 08/22/2023 _update labs and CPE/MWV in the summer 2023 Patient to continue seeing subspecialists Chronic pain, osteoarthritis, rheumatoid arthritis and fibromyalgia Continue Cymbalta, and Biologics with rheumatology Continuing to affect activities of daily living and functionality especially his hands Prediabetes, A1c monitoring, continue GLP-1, Euglycemic at 5.4 Discussed the role of metformin and prediabetes We have discussed all FDA approved treatment modalities and medications for obesity and weight loss We have discussed the mechanism of GLP-1's/GIP I think this would be fantastic option for him given metabolic workup and body composition We have discussed the risks and benefits and side effects including/and not limited to Sarcopenia, intestinal obstruction, constipation, nausea, lethargy, headache There is no history of medullary thyroid cancer or multiple endocrine neoplasia There is also no history of cardiovascular disease, hypertension, palpitations, or arrhythmias In the setting of potential stimulant/amphetam ine use such as phentermine ASCVD is a stepwise approach for all adult patients, including those with known ASCVD This risk estimate is a standardized guideline to predict risk and recommend management strategies for those at risk of ASCVD Risk of cardiovascular event (Coronary or stroke or nonfatal [place] or stroke) In the next 10 years We discussed the role of cholesterol and atherosclerosis. Cholesterols broken down into some particles. Cholesterol very important for body and has an important role in the synthesis of various hormones and neurotransmitters. However, today's cholesterol can have potential complications. Small density LDL particles that are oxidized or particularly dangerous. HDL cholesterol can have a protective effect. Elevated triglycerides levels are also dangerous. An elevated triglyceride and HDL ratio could be a sign of insulin resistance. Statins, fibrates, niacin, fish oil, DHEA, can be beneficial in treatment of dyslipidemia. Lifestyle modification with exercise and appropriate nutrition can decrease the risk of atherosclerosis due to dyslipidemia. Of note, some information is being carried forward from prior records for informational purposes only and is being cited so that efficiency, safety and quality of the patient's care is not compromised This note was prepared using voice recognition software and direct typing Please excuse inadvertent shirt creaser or typing errors, or uncorrected word substitutions Although every attempt has been made by the provider to proofread this document, occasional misspellings and typographical errors may still be present Due to the previous pandemic, and the use of personal protective equipment (PPE) This may decrease voice recognition accuracy Inadvertent shirt creaser errors may occur 06/14/2023 Pure hypercholesterolemia (ICD-10 - E78.00) Patient to continue seeing subspecialists Chronic pain, osteoarthritis, rheumatoid arthritis and fibromyalgia Continue Cymbalta, and Biologics with rheumatology Continuing to affect activities of daily living and functionality especially his hands Prediabetes, A1c monitoring, continue GLP-1, Euglycemic at 5.4 Check on PA status for Prat[employer]odal[employer] ONEIL in the spring with labs Discussed the role of metformin and prediabetes We have discussed all FDA approved treatment modalities and medications for obesity and weight loss We have discussed the mechanism of GLP-1's/GIP I think this would be fantastic option for him given metabolic workup and body composition We have discussed the risks and benefits and side effects including/and not limited to Sarcopenia, intestinal obstruction, constipation, nausea, lethargy, headache There is no history of medullary thyroid cancer or multiple endocrine neoplasia There is also no history of cardiovascular disease, hypertension, palpitations, or arrhythmias In the setting of potential stimulant/amphetam ine use such as phentermine ASCVD is a stepwise approach for all adult patients, including those with known ASCVD This risk estimate is a standardized guideline to predict risk and recommend management strategies for those at risk of ASCVD Risk of cardiovascular event (Coronary or stroke or nonfatal [place] or stroke) In the next 10 years We discussed the role of cholesterol and atherosclerosis. Cholesterols broken down into some particles. Cholesterol very important for body and has an important role in the synthesis of various hormones and neurotransmitters. However, today's cholesterol can have potential complications. Small density LDL particles that are oxidized or particularly dangerous. HDL cholesterol can have a protective effect. Elevated triglycerides levels are also dangerous. An elevated triglyceride and HDL ratio could be a sign of insulin resistance. Statins, fibrates, niacin, fish oil, DHEA, can be beneficial in treatment of dyslipidemia. Lifestyle modification with exercise and appropriate nutrition can decrease the risk of atherosclerosis due to dyslipidemia. Of note, some information is being carried forward from prior records for informational purposes only and is being cited so that efficiency, safety and quality of the patient's care is not compromised This note was prepared using voice recognition software and direct typing Please excuse inadvertent shirt creaser or typing errors, or uncorrected word substitutions Although every attempt has been made by the provider to proofread this document, occasional misspellings and typographical errors may still be present Due to the previous pandemic, and the use of personal protective equipment (PPE) This may decrease voice recognition accuracy Inadvertent shirt creaser errors may occur 06/14/2023 Latent tuberculosis (ICD-10 - Z22.7) Patient to continue seeing subspecialists Chronic pain, osteoarthritis, rheumatoid arthritis and fibromyalgia Continue Cymbalta, and Biologics with rheumatology Continuing to affect activities of daily living and functionality especially his hands Prediabetes, A1c monitoring, continue GLP-1, Euglycemic at 5.4 Check on PA status for Maggie POLKBereket in the spring with labs Discussed the role of metformin and prediabetes We have discussed all FDA approved treatment modalities and medications for obesity and weight loss We have discussed the mechanism of GLP-1's/GIP I think this would be fantastic option for him given metabolic workup and body composition We have discussed the risks and benefits and side effects including/and not limited to Sarcopenia, intestinal obstruction, constipation, nausea, lethargy, headache There is no history of medullary thyroid cancer or multiple endocrine neoplasia There is also no history of cardiovascular disease, hypertension, palpitations, or arrhythmias In the setting of potential stimulant/amphetam ine use such as phentermine ASCVD is a stepwise approach for all adult patients, including those with known ASCVD This risk estimate is a standardized guideline to predict risk and recommend management strategies for those at risk of ASCVD Risk of cardiovascular event (Coronary or stroke or nonfatal [place] or stroke) In the next 10 years We discussed the role of cholesterol and atherosclerosis. Cholesterols broken down into some particles. Cholesterol very important for body and has an important role in the synthesis of various hormones and neurotransmitters. However, today's cholesterol can have potential complications. Small density LDL particles that are oxidized or particularly dangerous. HDL cholesterol can have a protective effect. Elevated triglycerides levels are also dangerous. An elevated triglyceride and HDL ratio could be a sign of insulin resistance. Statins, fibrates, niacin, fish oil, DHEA, can be beneficial in treatment of dyslipidemia. Lifestyle modification with exercise and appropriate nutrition can decrease the risk of atherosclerosis due to dyslipidemia. Of note, some information is being carried forward from prior records for informational purposes only and is being cited so that efficiency, safety and quality of the patient's care is not compromised This note was prepared using voice recognition software and direct typing Please excuse inadvertent shirt creaser or typing errors, or uncorrected word substitutions Although every attempt has been made by the provider to proofread this document, occasional misspellings and typographical errors may still be present Due to the previous pandemic, and the use of personal protective equipment (PPE) This may decrease voice recognition accuracy Inadvertent shirt creaser errors may occur 08/22/2023 Latent tuberculosis (ICD-10 - Z22.7) Acute Concerns/Problem List: 08/22/2023 _update labs and CPE/MWV in the summer 2023 Patient to continue seeing subspecialists Chronic pain, osteoarthritis, rheumatoid arthritis and fibromyalgia Continue Cymbalta, and Biologics with rheumatology Continuing to affect activities of daily living and functionality especially his hands Prediabetes, A1c monitoring, continue GLP-1, Euglycemic at 5.4 Discussed the role of metformin and prediabetes We have discussed all FDA approved treatment modalities and medications for obesity and weight loss We have discussed the mechanism of GLP-1's/GIP I think this would be fantastic option for him given metabolic workup and body composition We have discussed the risks and benefits and side effects including/and not limited to Sarcopenia, intestinal obstruction, constipation, nausea, lethargy, headache There is no history of medullary thyroid cancer or multiple endocrine neoplasia There is also no history of cardiovascular disease, hypertension, palpitations, or arrhythmias In the setting of potential stimulant/amphetam ine use such as phentermine ASCVD is a stepwise approach for all adult patients, including those with known ASCVD This risk estimate is a standardized guideline to predict risk and recommend management strategies for those at risk of ASCVD Risk of cardiovascular event (Coronary or stroke or nonfatal [place] or stroke) In the next 10 years We discussed the role of cholesterol and atherosclerosis. Cholesterols broken down into some particles. Cholesterol very important for body and has an important role in the synthesis of various hormones and neurotransmitters. However, today's cholesterol can have potential complications. Small density LDL particles that are oxidized or particularly dangerous. HDL cholesterol can have a protective effect. Elevated triglycerides levels are also dangerous. An elevated triglyceride and HDL ratio could be a sign of insulin resistance. Statins, fibrates, niacin, fish oil, DHEA, can be beneficial in treatment of dyslipidemia. Lifestyle modification with exercise and appropriate nutrition can decrease the risk of atherosclerosis due to dyslipidemia. Of note, some information is being carried forward from prior records for informational purposes only and is being cited so that efficiency, safety and quality of the patient's care is not compromised This note was prepared using voice recognition software and direct typing Please excuse inadvertent shirt creaser or typing errors, or uncorrected word substitutions Although every attempt has been made by the provider to proofread this document, occasional misspellings and typographical errors may still be present Due to the previous pandemic, and the use of personal protective equipment (PPE) This may decrease voice recognition accuracy Inadvertent shirt creaser errors may occur 01/22/2024 Latent tuberculosis (ICD-10 - Z22.7) [facility] Acute Concerns/Problem List: 01/22/2024 Chronic conditions are stable at this time Will see him back quarterly Discussed the role of metformin and prediabetes We have discussed all FDA approved treatment modalities and medications for obesity and weight loss We have discussed the mechanism of GLP-1's/GIP I think this would be fantastic option for him given metabolic workup and body composition We have discussed the risks and benefits and side effects including/and not limited to Sarcopenia, intestinal obstruction, constipation, nausea, lethargy, headache There is no history of medullary thyroid cancer or multiple endocrine neoplasia There is also no history of cardiovascular disease, hypertension, palpitations, or arrhythmias In the setting of potential stimulant/amphetam ine use such as phentermine ASCVD is a stepwise approach for all adult patients, including those with known ASCVD This risk estimate is a standardized guideline to predict risk and recommend management strategies for those at risk of ASCVD Risk of cardiovascular event (Coronary or stroke or nonfatal [place] or stroke) In the next 10 years We discussed the role of cholesterol and atherosclerosis. Cholesterols broken down into some particles. Cholesterol very important for body and has an important role in the synthesis of various hormones and neurotransmitters. However, today's cholesterol can have potential complications. Small density LDL particles that are oxidized or particularly dangerous. HDL cholesterol can have a protective effect. Elevated triglycerides levels are also dangerous. An elevated triglyceride and HDL ratio could be a sign of insulin resistance. Statins, fibrates, niacin, fish oil, DHEA, can be beneficial in treatment of dyslipidemia. Lifestyle modification with exercise and appropriate nutrition can decrease the risk of atherosclerosis due to dyslipidemia. Of note, some information is being carried forward from prior records for informational purposes only and is being cited so that efficiency, safety and quality of the patient's care is not compromised This note was prepared using voice recognition software and direct typing Please excuse inadvertent shirt creaser or typing errors, or uncorrected word substitutions Although every attempt has been made by the provider to proofread this document, occasional misspellings and typographical errors may still be present Due to the previous pandemic, and the use of personal protective equipment (PPE) This may decrease voice recognition accuracy Inadvertent shirt creaser errors may occur 03/27/2024 Hyperlipidemia, unspecified (ICD-10 - E78.5) Continue with physiatry and pain management for lumbar radiculopathy and pain MRI of the lumbar spine is pending Continue with supportive care and pain medications RA, chronically managed by rheumatology getting monthly infusions Otherwise chronic conditions are stable Labs reviewed To get flu shot at pharmacy MOLST/HCP Discussed and Filed Of note, some information is being carried forward from prior records for informational purposes only and is being cited so that efficiency, safety and quality of the patient's care is not compromised This note was prepared using voice recognition software and direct typing Please excuse inadvertent shirt creaser or typing errors, or uncorrected word substitutions Although every attempt has been made by the provider to proofread this document, occasional misspellings and typographical errors may still be present Due to the previous pandemic, and the use of personal protective equipment (PPE) This may decrease voice recognition accuracy Inadvertent shirt creaser errors may occur 03/27/2024 Hx of prostatic malignancy (ICD-10 - Z85.46) Continue with physiatry and pain management for lumbar radiculopathy and pain MRI of the lumbar spine is pending Continue with supportive care and pain medications RA, chronically managed by rheumatology getting monthly infusions Otherwise chronic conditions are stable Labs reviewed To get flu shot at pharmacy MOLST/HCP Discussed and Filed Of note, some information is being carried forward from prior records for informational purposes only and is being cited so that efficiency, safety and quality of the patient's care is not compromised This note was prepared using voice recognition software and direct typing Please excuse inadvertent shirt creaser or typing errors, or uncorrected word substitutions Although every attempt has been made by the provider to proofread this document, occasional misspellings and typographical errors may still be present Due to the previous pandemic, and the use of personal protective equipment (PPE) This may decrease voice recognition accuracy Inadvertent shirt creaser errors may occur 08/22/2023 Hyperlipidemia, unspecified (ICD-10 - E78.5) Acute Concerns/Problem List: 08/22/2023 _update labs and CPE/MWV in the summer 2023 Patient to continue seeing subspecialists Chronic pain, osteoarthritis, rheumatoid arthritis and fibromyalgia Continue Cymbalta, and Biologics with rheumatology Continuing to affect activities of daily living and functionality especially his hands Prediabetes, A1c monitoring, continue GLP-1, Euglycemic at 5.4 Discussed the role of metformin and prediabetes We have discussed all FDA approved treatment modalities and medications for obesity and weight loss We have discussed the mechanism of GLP-1's/GIP I think this would be fantastic option for him given metabolic workup and body composition We have discussed the risks and benefits and side effects including/and not limited to Sarcopenia, intestinal obstruction, constipation, nausea, lethargy, headache There is no history of medullary thyroid cancer or multiple endocrine neoplasia There is also no history of cardiovascular disease, hypertension, palpitations, or arrhythmias In the setting of potential stimulant/amphetam ine use such as phentermine ASCVD is a stepwise approach for all adult patients, including those with known ASCVD This risk estimate is a standardized guideline to predict risk and recommend management strategies for those at risk of ASCVD Risk of cardiovascular event (Coronary or stroke or nonfatal [place] or stroke) In the next 10 years We discussed the role of cholesterol and atherosclerosis. Cholesterols broken down into some particles. Cholesterol very important for body and has an important role in the synthesis of various hormones and neurotransmitters. However, today's cholesterol can have potential complications. Small density LDL particles that are oxidized or particularly dangerous. HDL cholesterol can have a protective effect. Elevated triglycerides levels are also dangerous. An elevated triglyceride and HDL ratio could be a sign of insulin resistance. Statins, fibrates, niacin, fish oil, DHEA, can be beneficial in treatment of dyslipidemia. Lifestyle modification with exercise and appropriate nutrition can decrease the risk of atherosclerosis due to dyslipidemia. Of note, some information is being carried forward from prior records for informational purposes only and is being cited so that efficiency, safety and quality of the patient's care is not compromised This note was prepared using voice recognition software and direct typing Please excuse inadvertent shirt creaser or typing errors, or uncorrected word substitutions Although every attempt has been made by the provider to proofread this document, occasional misspellings and typographical errors may still be present Due to the previous pandemic, and the use of personal protective equipment (PPE) This may decrease voice recognition accuracy Inadvertent shirt creaser errors may occur 01/22/2024 Hyperlipidemia, unspecified (ICD-10 - E78.5) [facility] Acute Concerns/Problem List: 01/22/2024 Chronic conditions are stable at this time Will see him back quarterly Discussed the role of metformin and prediabetes We have discussed all FDA approved treatment modalities and medications for obesity and weight loss We have discussed the mechanism of GLP-1's/GIP I think this would be fantastic option for him given metabolic workup and body composition We have discussed the risks and benefits and side effects including/and not limited to Sarcopenia, intestinal obstruction, constipation, nausea, lethargy, headache There is no history of medullary thyroid cancer or multiple endocrine neoplasia There is also no history of cardiovascular disease, hypertension, palpitations, or arrhythmias In the setting of potential stimulant/amphetam ine use such as phentermine ASCVD is a stepwise approach for all adult patients, including those with known ASCVD This risk estimate is a standardized guideline to predict risk and recommend management strategies for those at risk of ASCVD Risk of cardiovascular event (Coronary or stroke or nonfatal [place] or stroke) In the next 10 years We discussed the role of cholesterol and atherosclerosis. Cholesterols broken down into some particles. Cholesterol very important for body and has an important role in the synthesis of various hormones and neurotransmitters. However, today's cholesterol can have potential complications. Small density LDL particles that are oxidized or particularly dangerous. HDL cholesterol can have a protective effect. Elevated triglycerides levels are also dangerous. An elevated triglyceride and HDL ratio could be a sign of insulin resistance. Statins, fibrates, niacin, fish oil, DHEA, can be beneficial in treatment of dyslipidemia. Lifestyle modification with exercise and appropriate nutrition can decrease the risk of atherosclerosis due to dyslipidemia. Of note, some information is being carried forward from prior records for informational purposes only and is being cited so that efficiency, safety and quality of the patient's care is not compromised This note was prepared using voice recognition software and direct typing Please excuse inadvertent shirt creaser or typing errors, or uncorrected word substitutions Although every attempt has been made by the provider to proofread this document, occasional misspellings and typographical errors may still be present Due to the previous pandemic, and the use of personal protective equipment (PPE) This may decrease voice recognition accuracy Inadvertent shirt creaser errors may occur 06/14/2023 Hyperlipidemia, unspecified (ICD-10 - E78.5) Patient to continue seeing subspecialists Chronic pain, osteoarthritis, rheumatoid arthritis and fibromyalgia Continue Cymbalta, and Biologics with rheumatology Continuing to affect activities of daily living and functionality especially his hands Prediabetes, A1c monitoring, continue GLP-1, Euglycemic at 5.4 Check on PA status for Maggie [facility] in the spring with labs Discussed the role of metformin and prediabetes We have discussed all FDA approved treatment modalities and medications for obesity and weight loss We have discussed the mechanism of GLP-1's/GIP I think this would be fantastic option for him given metabolic workup and body composition We have discussed the risks and benefits and side effects including/and not limited to Sarcopenia, intestinal obstruction, constipation, nausea, lethargy, headache There is no history of medullary thyroid cancer or multiple endocrine neoplasia There is also no history of cardiovascular disease, hypertension, palpitations, or arrhythmias In the setting of potential stimulant/amphetam ine use such as phentermine ASCVD is a stepwise approach for all adult patients, including those with known ASCVD This risk estimate is a standardized guideline to predict risk and recommend management strategies for those at risk of ASCVD Risk of cardiovascular event (Coronary or stroke or nonfatal [place] or stroke) In the next 10 years We discussed the role of cholesterol and atherosclerosis. Cholesterols broken down into some particles. Cholesterol very important for body and has an important role in the synthesis of various hormones and neurotransmitters. However, today's cholesterol can have potential complications. Small density LDL particles that are oxidized or particularly dangerous. HDL cholesterol can have a protective effect. Elevated triglycerides levels are also dangerous. An elevated triglyceride and HDL ratio could be a sign of insulin resistance. Statins, fibrates, niacin, fish oil, DHEA, can be beneficial in treatment of dyslipidemia. Lifestyle modification with exercise and appropriate nutrition can decrease the risk of atherosclerosis due to dyslipidemia. Of note, some information is being carried forward from prior records for informational purposes only and is being cited so that efficiency, safety and quality of the patient's care is not compromised This note was prepared using voice recognition software and direct typing Please excuse inadvertent shirt creaser or typing errors, or uncorrected word substitutions Although every attempt has been made by the provider to proofread this document, occasional misspellings and typographical errors may still be present Due to the previous pandemic, and the use of personal protective equipment (PPE) This may decrease voice recognition accuracy Inadvertent shirt creaser errors may occur 06/14/2023 Osteoporosis without current pathological fracture, unspecified osteoporosis type (ICD-10 - M81.0) Patient to continue seeing subspecialists Chronic pain, osteoarthritis, rheumatoid arthritis and fibromyalgia Continue Cymbalta, and Biologics with rheumatology Continuing to affect activities of daily living and functionality especially his hands Prediabetes, A1c monitoring, continue GLP-1, Euglycemic at 5.4 Check on PA status for Maggie ONEIL in the spring with labs Discussed the role of metformin and prediabetes We have discussed all FDA approved treatment modalities and medications for obesity and weight loss We have discussed the mechanism of GLP-1's/GIP I think this would be fantastic option for him given metabolic workup and body composition We have discussed the risks and benefits and side effects including/and not limited to Sarcopenia, intestinal obstruction, constipation, nausea, lethargy, headache There is no history of medullary thyroid cancer or multiple endocrine neoplasia There is also no history of cardiovascular disease, hypertension, palpitations, or arrhythmias In the setting of potential stimulant/amphetam ine use such as phentermine ASCVD is a stepwise approach for all adult patients, including those with known ASCVD This risk estimate is a standardized guideline to predict risk and recommend management strategies for those at risk of ASCVD Risk of cardiovascular event (Coronary or stroke or nonfatal [place] or stroke) In the next 10 years We discussed the role of cholesterol and atherosclerosis. Cholesterols broken down into some particles. Cholesterol very important for body and has an important role in the synthesis of various hormones and neurotransmitters. However, today's cholesterol can have potential complications. Small density LDL particles that are oxidized or particularly dangerous. HDL cholesterol can have a protective effect. Elevated triglycerides levels are also dangerous. An elevated triglyceride and HDL ratio could be a sign of insulin resistance. Statins, fibrates, niacin, fish oil, DHEA, can be beneficial in treatment of dyslipidemia. Lifestyle modification with exercise and appropriate nutrition can decrease the risk of atherosclerosis due to dyslipidemia. Of note, some information is being carried forward from prior records for informational purposes only and is being cited so that efficiency, safety and quality of the patient's care is not compromised This note was prepared using voice recognition software and direct typing Please excuse inadvertent shirt creaser or typing errors, or uncorrected word substitutions Although every attempt has been made by the provider to proofread this document, occasional misspellings and typographical errors may still be present Due to the previous pandemic, and the use of personal protective equipment (PPE) This may decrease voice recognition accuracy Inadvertent shirt creaser errors may occur 01/22/2024 Erectile dysfunction following simple prostatectomy (ICD-10 - N52.34) [facility] Acute Concerns/Problem List: 01/22/2024 Chronic conditions are stable at this time Will see him back quarterly Discussed the role of metformin and prediabetes We have discussed all FDA approved treatment modalities and medications for obesity and weight loss We have discussed the mechanism of GLP-1's/GIP I think this would be fantastic option for him given metabolic workup and body composition We have discussed the risks and benefits and side effects including/and not limited to Sarcopenia, intestinal obstruction, constipation, nausea, lethargy, headache There is no history of medullary thyroid cancer or multiple endocrine neoplasia There is also no history of cardiovascular disease, hypertension, palpitations, or arrhythmias In the setting of potential stimulant/amphetam ine use such as phentermine ASCVD is a stepwise approach for all adult patients, including those with known ASCVD This risk estimate is a standardized guideline to predict risk and recommend management strategies for those at risk of ASCVD Risk of cardiovascular event (Coronary or stroke or nonfatal [place] or stroke) In the next 10 years We discussed the role of cholesterol and atherosclerosis. Cholesterols broken down into some particles. Cholesterol very important for body and has an important role in the synthesis of various hormones and neurotransmitters. However, today's cholesterol can have potential complications. Small density LDL particles that are oxidized or particularly dangerous. HDL cholesterol can have a protective effect. Elevated triglycerides levels are also dangerous. An elevated triglyceride and HDL ratio could be a sign of insulin resistance. Statins, fibrates, niacin, fish oil, DHEA, can be beneficial in treatment of dyslipidemia. Lifestyle modification with exercise and appropriate nutrition can decrease the risk of atherosclerosis due to dyslipidemia. Of note, some information is being carried forward from prior records for informational purposes only and is being cited so that efficiency, safety and quality of the patient's care is not compromised This note was prepared using voice recognition software and direct typing Please excuse inadvertent shirt creaser or typing errors, or uncorrected word substitutions Although every attempt has been made by the provider to proofread this document, occasional misspellings and typographical errors may still be present Due to the previous pandemic, and the use of personal protective equipment (PPE) This may decrease voice recognition accuracy Inadvertent shirt creaser errors may occur 08/22/2023 Osteoporosis without current pathological fracture, unspecified osteoporosis type (ICD-10 - M81.0) Acute Concerns/Problem List: 08/22/2023 _update labs and CPE/MWV in the summer 2023 Patient to continue seeing subspecialists Chronic pain, osteoarthritis, rheumatoid arthritis and fibromyalgia Continue Cymbalta, and Biologics with rheumatology Continuing to affect activities of daily living and functionality especially his hands Prediabetes, A1c monitoring, continue GLP-1, Euglycemic at 5.4 Discussed the role of metformin and prediabetes We have discussed all FDA approved treatment modalities and medications for obesity and weight loss We have discussed the mechanism of GLP-1's/GIP I think this would be fantastic option for him given metabolic workup and body composition We have discussed the risks and benefits and side effects including/and not limited to Sarcopenia, intestinal obstruction, constipation, nausea, lethargy, headache There is no history of medullary thyroid cancer or multiple endocrine neoplasia There is also no history of cardiovascular disease, hypertension, palpitations, or arrhythmias In the setting of potential stimulant/amphetam ine use such as phentermine ASCVD is a stepwise approach for all adult patients, including those with known ASCVD This risk estimate is a standardized guideline to predict risk and recommend management strategies for those at risk of ASCVD Risk of cardiovascular event (Coronary or stroke or nonfatal [place] or stroke) In the next 10 years We discussed the role of cholesterol and atherosclerosis. Cholesterols broken down into some particles. Cholesterol very important for body and has an important role in the synthesis of various hormones and neurotransmitters. However, today's cholesterol can have potential complications. Small density LDL particles that are oxidized or particularly dangerous. HDL cholesterol can have a protective effect. Elevated triglycerides levels are also dangerous. An elevated triglyceride and HDL ratio could be a sign of insulin resistance. Statins, fibrates, niacin, fish oil, DHEA, can be beneficial in treatment of dyslipidemia. Lifestyle modification with exercise and appropriate nutrition can decrease the risk of atherosclerosis due to dyslipidemia. Of note, some information is being carried forward from prior records for informational purposes only and is being cited so that efficiency, safety and quality of the patient's care is not compromised This note was prepared using voice recognition software and direct typing Please excuse inadvertent shirt creaser or typing errors, or uncorrected word substitutions Although every attempt has been made by the provider to proofread this document, occasional misspellings and typographical errors may still be present Due to the previous pandemic, and the use of personal protective equipment (PPE) This may decrease voice recognition accuracy Inadvertent shirt creaser errors may occur 03/27/2024 S/P TURP (status pos t transurethral resection of prostate) (ICD-10 - Z90.79) Continue with physiatry and pain management for lumbar radiculopathy and pain MRI of the lumbar spine is pending Continue with supportive care and pain medications RA, chronically managed by rheumatology getting monthly infusions Otherwise chronic conditions are stable Labs reviewed To get flu shot at pharmacy MOLST/HCP Discussed and Filed Of note, some information is being carried forward from prior records for informational purposes only and is being cited so that efficiency, safety and quality of the patient's care is not compromised This note was prepared using voice recognition software and direct typing Please excuse inadvertent shirt creaser or typing errors, or uncorrected word substitutions Although every attempt has been made by the provider to proofread this document, occasional misspellings and typographical errors may still be present Due to the previous pandemic, and the use of personal protective equipment (PPE) This may decrease voice recognition accuracy Inadvertent shirt creaser errors may occur 03/27/2024 Prediabetes (ICD-10 - R73.03) Continue with physiatry and pain management for lumbar radiculopathy and pain MRI of the lumbar spine is pending Continue with supportive care and pain medications RA, chronically managed by rheumatology getting monthly infusions Otherwise chronic conditions are stable Labs reviewed To get flu shot at pharmacy MOLST/HCP Discussed and Filed Of note, some information is being carried forward from prior records for informational purposes only and is being cited so that efficiency, safety and quality of the patient's care is not compromised This note was prepared using voice recognition software and direct typing Please excuse inadvertent shirt creaser or typing errors, or uncorrected word substitutions Although every attempt has been made by the provider to proofread this document, occasional misspellings and typographical errors may still be present Due to the previous pandemic, and the use of personal protective equipment (PPE) This may decrease voice recognition accuracy Inadvertent shirt creaser errors may occur 08/22/2023 Erectile dysfunction following simple prostatectomy (ICD-10 - N52.34) Acute Concerns/Problem List: 08/22/2023 _update labs and CPE/MWV in the summer 2023 Patient to continue seeing subspecialists Chronic pain, osteoarthritis, rheumatoid arthritis and fibromyalgia Continue Cymbalta, and Biologics with rheumatology Continuing to affect activities of daily living and functionality especially his hands Prediabetes, A1c monitoring, continue GLP-1, Euglycemic at 5.4 Discussed the role of metformin and prediabetes We have discussed all FDA approved treatment modalities and medications for obesity and weight loss We have discussed the mechanism of GLP-1's/GIP I think this would be fantastic option for him given metabolic workup and body composition We have discussed the risks and benefits and side effects including/and not limited to Sarcopenia, intestinal obstruction, constipation, nausea, lethargy, headache There is no history of medullary thyroid cancer or multiple endocrine neoplasia There is also no history of cardiovascular disease, hypertension, palpitations, or arrhythmias In the setting of potential stimulant/amphetam ine use such as phentermine ASCVD is a stepwise approach for all adult patients, including those with known ASCVD This risk estimate is a standardized guideline to predict risk and recommend management strategies for those at risk of ASCVD Risk of cardiovascular event (Coronary or stroke or nonfatal [place] or stroke) In the next 10 years We discussed the role of cholesterol and atherosclerosis. Cholesterols broken down into some particles. Cholesterol very important for body and has an important role in the synthesis of various hormones and neurotransmitters. However, today's cholesterol can have potential complications. Small density LDL particles that are oxidized or particularly dangerous. HDL cholesterol can have a protective effect. Elevated triglycerides levels are also dangerous. An elevated triglyceride and HDL ratio could be a sign of insulin resistance. Statins, fibrates, niacin, fish oil, DHEA, can be beneficial in treatment of dyslipidemia. Lifestyle modification with exercise and appropriate nutrition can decrease the risk of atherosclerosis due to dyslipidemia. Of note, some information is being carried forward from prior records for informational purposes only and is being cited so that efficiency, safety and quality of the patient's care is not compromised This note was prepared using voice recognition software and direct typing Please excuse inadvertent shirt creaser or typing errors, or uncorrected word substitutions Although every attempt has been made by the provider to proofread this document, occasional misspellings and typographical errors may still be present Due to the previous pandemic, and the use of personal protective equipment (PPE) This may decrease voice recognition accuracy Inadvertent shirt creaser errors may occur 01/22/2024 Rheumatoid arthritis without rheumatoid factor, right knee (ICD-10 - M06.061) [facility] Acute Concerns/Problem List: 01/22/2024 Chronic conditions are stable at this time Will see him back quarterly Discussed the role of metformin and prediabetes We have discussed all FDA approved treatment modalities and medications for obesity and weight loss We have discussed the mechanism of GLP-1's/GIP I think this would be fantastic option for him given metabolic workup and body composition We have discussed the risks and benefits and side effects including/and not limited to Sarcopenia, intestinal obstruction, constipation, nausea, lethargy, headache There is no history of medullary thyroid cancer or multiple endocrine neoplasia There is also no history of cardiovascular disease, hypertension, palpitations, or arrhythmias In the setting of potential stimulant/amphetam ine use such as phentermine ASCVD is a stepwise approach for all adult patients, including those with known ASCVD This risk estimate is a standardized guideline to predict risk and recommend management strategies for those at risk of ASCVD Risk of cardiovascular event (Coronary or stroke or nonfatal [place] or stroke) In the next 10 years We discussed the role of cholesterol and atherosclerosis. Cholesterols broken down into some particles. Cholesterol very important for body and has an important role in the synthesis of various hormones and neurotransmitters. However, today's cholesterol can have potential complications. Small density LDL particles that are oxidized or particularly dangerous. HDL cholesterol can have a protective effect. Elevated triglycerides levels are also dangerous. An elevated triglyceride and HDL ratio could be a sign of insulin resistance. Statins, fibrates, niacin, fish oil, DHEA, can be beneficial in treatment of dyslipidemia. Lifestyle modification with exercise and appropriate nutrition can decrease the risk of atherosclerosis due to dyslipidemia. Of note, some information is being carried forward from prior records for informational purposes only and is being cited so that efficiency, safety and quality of the patient's care is not compromised This note was prepared using voice recognition software and direct typing Please excuse inadvertent shirt creaser or typing errors, or uncorrected word substitutions Although every attempt has been made by the provider to proofread this document, occasional misspellings and typographical errors may still be present Due to the previous pandemic, and the use of personal protective equipment (PPE) This may decrease voice recognition accuracy Inadvertent shirt creaser errors may occur 06/14/2023 Erectile dysfunction following simple prostatectomy (ICD-10 - N52.34) Patient to continue seeing subspecialists Chronic pain, osteoarthritis, rheumatoid arthritis and fibromyalgia Continue Cymbalta, and Biologics with rheumatology Continuing to affect activities of daily living and functionality especially his hands Prediabetes, A1c monitoring, continue GLP-1, Euglycemic at 5.4 Check on PA status for Maggie ONEIL in the spring with labs Discussed the role of metformin and prediabetes We have discussed all FDA approved treatment modalities and medications for obesity and weight loss We have discussed the mechanism of GLP-1's/GIP I think this would be fantastic option for him given metabolic workup and body composition We have discussed the risks and benefits and side effects including/and not limited to Sarcopenia, intestinal obstruction, constipation, nausea, lethargy, headache There is no history of medullary thyroid cancer or multiple endocrine neoplasia There is also no history of cardiovascular disease, hypertension, palpitations, or arrhythmias In the setting of potential stimulant/amphetam ine use such as phentermine ASCVD is a stepwise approach for all adult patients, including those with known ASCVD This risk estimate is a standardized guideline to predict risk and recommend management strategies for those at risk of ASCVD Risk of cardiovascular event (Coronary or stroke or nonfatal [place] or stroke) In the next 10 years We discussed the role of cholesterol and atherosclerosis. Cholesterols broken down into some particles. Cholesterol very important for body and has an important role in the synthesis of various hormones and neurotransmitters. However, today's cholesterol can have potential complications. Small density LDL particles that are oxidized or particularly dangerous. HDL cholesterol can have a protective effect. Elevated triglycerides levels are also dangerous. An elevated triglyceride and HDL ratio could be a sign of insulin resistance. Statins, fibrates, niacin, fish oil, DHEA, can be beneficial in treatment of dyslipidemia. Lifestyle modification with exercise and appropriate nutrition can decrease the risk of atherosclerosis due to dyslipidemia. Of note, some information is being carried forward from prior records for informational purposes only and is being cited so that efficiency, safety and quality of the patient's care is not compromised This note was prepared using voice recognition software and direct typing Please excuse inadvertent shirt creaser or typing errors, or uncorrected word substitutions Although every attempt has been made by the provider to proofread this document, occasional misspellings and typographical errors may still be present Due to the previous pandemic, and the use of personal protective equipment (PPE) This may decrease voice recognition accuracy Inadvertent shirt creaser errors may occur 06/14/2023 Rheumatoid arthritis without rheumatoid factor, right knee (ICD-10 - M06.061) Patient to continue seeing subspecialists Chronic pain, osteoarthritis, rheumatoid arthritis and fibromyalgia Continue Cymbalta, and Biologics with rheumatology Continuing to affect activities of daily living and functionality especially his hands Prediabetes, A1c monitoring, continue GLP-1, Euglycemic at 5.4 Check on PA status for Maggie ONEIL in the spring with labs Discussed the role of metformin and prediabetes We have discussed all FDA approved treatment modalities and medications for obesity and weight loss We have discussed the mechanism of GLP-1's/GIP I think this would be fantastic option for him given metabolic workup and body composition We have discussed the risks and benefits and side effects including/and not limited to Sarcopenia, intestinal obstruction, constipation, nausea, lethargy, headache There is no history of medullary thyroid cancer or multiple endocrine neoplasia There is also no history of cardiovascular disease, hypertension, palpitations, or arrhythmias In the setting of potential stimulant/amphetam ine use such as phentermine ASCVD is a stepwise approach for all adult patients, including those with known ASCVD This risk estimate is a standardized guideline to predict risk and recommend management strategies for those at risk of ASCVD Risk of cardiovascular event (Coronary or stroke or nonfatal [place] or stroke) In the next 10 years We discussed the role of cholesterol and atherosclerosis. Cholesterols broken down into some particles. Cholesterol very important for body and has an important role in the synthesis of various hormones and neurotransmitters. However, today's cholesterol can have potential complications. Small density LDL particles that are oxidized or particularly dangerous. HDL cholesterol can have a protective effect. Elevated triglycerides levels are also dangerous. An elevated triglyceride and HDL ratio could be a sign of insulin resistance. Statins, fibrates, niacin, fish oil, DHEA, can be beneficial in treatment of dyslipidemia. Lifestyle modification with exercise and appropriate nutrition can decrease the risk of atherosclerosis due to dyslipidemia. Of note, some information is being carried forward from prior records for informational purposes only and is being cited so that efficiency, safety and quality of the patient's care is not compromised This note was prepared using voice recognition software and direct typing Please excuse inadvertent shirt creaser or typing errors, or uncorrected word substitutions Although every attempt has been made by the provider to proofread this document, occasional misspellings and typographical errors may still be present Due to the previous pandemic, and the use of personal protective equipment (PPE) This may decrease voice recognition accuracy Inadvertent shirt creaser errors may occur 03/27/2024 Erectile dysfunction following simple prostatectomy (ICD-10 - N52.34) Continue with physiatry and pain management for lumbar radiculopathy and pain MRI of the lumbar spine is pending Continue with supportive care and pain medications RA, chronically managed by rheumatology getting monthly infusions Otherwise chronic conditions are stable Labs reviewed To get flu shot at pharmacy MOLST/HCP Discussed and Filed Of note, some information is being carried forward from prior records for informational purposes only and is being cited so that efficiency, safety and quality of the patient's care is not compromised This note was prepared using voice recognition software and direct typing Please excuse inadvertent shirt creaser or typing errors, or uncorrected word substitutions Although every attempt has been made by the provider to proofread this document, occasional misspellings and typographical errors may still be present Due to the previous pandemic, and the use of personal protective equipment (PPE) This may decrease voice recognition accuracy Inadvertent shirt creaser errors may occur 01/22/2024 Rheumatoid arthritis without rheumatoid factor, right hand (ICD-10 - M06.041) [facility] Acute Concerns/Problem List: 01/22/2024 Chronic conditions are stable at this time Will see him back quarterly Discussed the role of metformin and prediabetes We have discussed all FDA approved treatment modalities and medications for obesity and weight loss We have discussed the mechanism of GLP-1's/GIP I think this would be fantastic option for him given metabolic workup and body composition We have discussed the risks and benefits and side effects including/and not limited to Sarcopenia, intestinal obstruction, constipation, nausea, lethargy, headache There is no history of medullary thyroid cancer or multiple endocrine neoplasia There is also no history of cardiovascular disease, hypertension, palpitations, or arrhythmias In the setting of potential stimulant/amphetam ine use such as phentermine ASCVD is a stepwise approach for all adult patients, including those with known ASCVD This risk estimate is a standardized guideline to predict risk and recommend management strategies for those at risk of ASCVD Risk of cardiovascular event (Coronary or stroke or nonfatal [place] or stroke) In the next 10 years We discussed the role of cholesterol and atherosclerosis. Cholesterols broken down into some particles. Cholesterol very important for body and has an important role in the synthesis of various hormones and neurotransmitters. However, today's cholesterol can have potential complications. Small density LDL particles that are oxidized or particularly dangerous. HDL cholesterol can have a protective effect. Elevated triglycerides levels are also dangerous. An elevated triglyceride and HDL ratio could be a sign of insulin resistance. Statins, fibrates, niacin, fish oil, DHEA, can be beneficial in treatment of dyslipidemia. Lifestyle modification with exercise and appropriate nutrition can decrease the risk of atherosclerosis due to dyslipidemia. Of note, some information is being carried forward from prior records for informational purposes only and is being cited so that efficiency, safety and quality of the patient's care is not compromised This note was prepared using voice recognition software and direct typing Please excuse inadvertent shirt creaser or typing errors, or uncorrected word substitutions Although every attempt has been made by the provider to proofread this document, occasional misspellings and typographical errors may still be present Due to the previous pandemic, and the use of personal protective equipment (PPE) This may decrease voice recognition accuracy Inadvertent shirt creaser errors may occur 08/22/2023 Rheumatoid arthritis without rheumatoid factor, right knee (ICD-10 - M06.061) Acute Concerns/Problem List: 08/22/2023 _update labs and CPE/MWV in the summer 2023 Patient to continue seeing subspecialists Chronic pain, osteoarthritis, rheumatoid arthritis and fibromyalgia Continue Cymbalta, and Biologics with rheumatology Continuing to affect activities of daily living and functionality especially his hands Prediabetes, A1c monitoring, continue GLP-1, Euglycemic at 5.4 Discussed the role of metformin and prediabetes We have discussed all FDA approved treatment modalities and medications for obesity and weight loss We have discussed the mechanism of GLP-1's/GIP I think this would be fantastic option for him given metabolic workup and body composition We have discussed the risks and benefits and side effects including/and not limited to Sarcopenia, intestinal obstruction, constipation, nausea, lethargy, headache There is no history of medullary thyroid cancer or multiple endocrine neoplasia There is also no history of cardiovascular disease, hypertension, palpitations, or arrhythmias In the setting of potential stimulant/amphetam ine use such as phentermine ASCVD is a stepwise approach for all adult patients, including those with known ASCVD This risk estimate is a standardized guideline to predict risk and recommend management strategies for those at risk of ASCVD Risk of cardiovascular event (Coronary or stroke or nonfatal [place] or stroke) In the next 10 years We discussed the role of cholesterol and atherosclerosis. Cholesterols broken down into some particles. Cholesterol very important for body and has an important role in the synthesis of various hormones and neurotransmitters. However, today's cholesterol can have potential complications. Small density LDL particles that are oxidized or particularly dangerous. HDL cholesterol can have a protective effect. Elevated triglycerides levels are also dangerous. An elevated triglyceride and HDL ratio could be a sign of insulin resistance. Statins, fibrates, niacin, fish oil, DHEA, can be beneficial in treatment of dyslipidemia. Lifestyle modification with exercise and appropriate nutrition can decrease the risk of atherosclerosis due to dyslipidemia. Of note, some information is being carried forward from prior records for informational purposes only and is being cited so that efficiency, safety and quality of the patient's care is not compromised This note was prepared using voice recognition software and direct typing Please excuse inadvertent shirt creaser or typing errors, or uncorrected word substitutions Although every attempt has been made by the provider to proofread this document, occasional misspellings and typographical errors may still be present Due to the previous pandemic, and the use of personal protective equipment (PPE) This may decrease voice recognition accuracy Inadvertent shirt creaser errors may occur 08/22/2023 Rheumatoid arthritis without rheumatoid factor, right hand (ICD-10 - M06.041) Acute Concerns/Problem List: 08/22/2023 _update labs and CPE/MWV in the summer 2023 Patient to continue seeing subspecialists Chronic pain, osteoarthritis, rheumatoid arthritis and fibromyalgia Continue Cymbalta, and Biologics with rheumatology Continuing to affect activities of daily living and functionality especially his hands Prediabetes, A1c monitoring, continue GLP-1, Euglycemic at 5.4 Discussed the role of metformin and prediabetes We have discussed all FDA approved treatment modalities and medications for obesity and weight loss We have discussed the mechanism of GLP-1's/GIP I think this would be fantastic option for him given metabolic workup and body composition We have discussed the risks and benefits and side effects including/and not limited to Sarcopenia, intestinal obstruction, constipation, nausea, lethargy, headache There is no history of medullary thyroid cancer or multiple endocrine neoplasia There is also no history of cardiovascular disease, hypertension, palpitations, or arrhythmias In the setting of potential stimulant/amphetam ine use such as phentermine ASCVD is a stepwise approach for all adult patients, including those with known ASCVD This risk estimate is a standardized guideline to predict risk and recommend management strategies for those at risk of ASCVD Risk of cardiovascular event (Coronary or stroke or nonfatal [place] or stroke) In the next 10 years We discussed the role of cholesterol and atherosclerosis. Cholesterols broken down into some particles. Cholesterol very important for body and has an important role in the synthesis of various hormones and neurotransmitters. However, today's cholesterol can have potential complications. Small density LDL particles that are oxidized or particularly dangerous. HDL cholesterol can have a protective effect. Elevated triglycerides levels are also dangerous. An elevated triglyceride and HDL ratio could be a sign of insulin resistance. Statins, fibrates, niacin, fish oil, DHEA, can be beneficial in treatment of dyslipidemia. Lifestyle modification with exercise and appropriate nutrition can decrease the risk of atherosclerosis due to dyslipidemia. Of note, some information is being carried forward from prior records for informational purposes only and is being cited so that efficiency, safety and quality of the patient's care is not compromised This note was prepared using voice recognition software and direct typing Please excuse inadvertent shirt creaser or typing errors, or uncorrected word substitutions Although every attempt has been made by the provider to proofread this document, occasional misspellings and typographical errors may still be present Due to the previous pandemic, and the use of personal protective equipment (PPE) This may decrease voice recognition accuracy Inadvertent shirt creaser errors may occur 06/14/2023 Rheumatoid arthritis without rheumatoid factor, right hand (ICD-10 - M06.041) Patient to continue seeing subspecialists Chronic pain, osteoarthritis, rheumatoid arthritis and fibromyalgia Continue Cymbalta, and Biologics with rheumatology Continuing to affect activities of daily living and functionality especially his hands Prediabetes, A1c monitoring, continue GLP-1, Euglycemic at 5.4 Check on PA status for Maggie ONEIL in the spring with labs Discussed the role of metformin and prediabetes We have discussed all FDA approved treatment modalities and medications for obesity and weight loss We have discussed the mechanism of GLP-1's/GIP I think this would be fantastic option for him given metabolic workup and body composition We have discussed the risks and benefits and side effects including/and not limited to Sarcopenia, intestinal obstruction, constipation, nausea, lethargy, headache There is no history of medullary thyroid cancer or multiple endocrine neoplasia There is also no history of cardiovascular disease, hypertension, palpitations, or arrhythmias In the setting of potential stimulant/amphetam ine use such as phentermine ASCVD is a stepwise approach for all adult patients, including those with known ASCVD This risk estimate is a standardized guideline to predict risk and recommend management strategies for those at risk of ASCVD Risk of cardiovascular event (Coronary or stroke or nonfatal [place] or stroke) In the next 10 years We discussed the role of cholesterol and atherosclerosis. Cholesterols broken down into some particles. Cholesterol very important for body and has an important role in the synthesis of various hormones and neurotransmitters. However, today's cholesterol can have potential complications. Small density LDL particles that are oxidized or particularly dangerous. HDL cholesterol can have a protective effect. Elevated triglycerides levels are also dangerous. An elevated triglyceride and HDL ratio could be a sign of insulin resistance. Statins, fibrates, niacin, fish oil, DHEA, can be beneficial in treatment of dyslipidemia. Lifestyle modification with exercise and appropriate nutrition can decrease the risk of atherosclerosis due to dyslipidemia. Of note, some information is being carried forward from prior records for informational purposes only and is being cited so that efficiency, safety and quality of the patient's care is not compromised This note was prepared using voice recognition software and direct typing Please excuse inadvertent shirt creaser or typing errors, or uncorrected word substitutions Although every attempt has been made by the provider to proofread this document, occasional misspellings and typographical errors may still be present Due to the previous pandemic, and the use of personal protective equipment (PPE) This may decrease voice recognition accuracy Inadvertent shirt creaser errors may occur 03/27/2024 Osteoporosis without current pathological fracture, unspecified osteoporosis type (ICD-10 - M81.0) Continue with physiatry and pain management for lumbar radiculopathy and pain MRI of the lumbar spine is pending Continue with supportive care and pain medications RA, chronically managed by rheumatology getting monthly infusions Otherwise chronic conditions are stable Labs reviewed To get flu shot at pharmacy MOLST/HCP Discussed and Filed Of note, some information is being carried forward from prior records for informational purposes only and is being cited so that efficiency, safety and quality of the patient's care is not compromised This note was prepared using voice recognition software and direct typing Please excuse inadvertent shirt creaser or typing errors, or uncorrected word substitutions Although every attempt has been made by the provider to proofread this document, occasional misspellings and typographical errors may still be present Due to the previous pandemic, and the use of personal protective equipment (PPE) This may decrease voice recognition accuracy Inadvertent shirt creaser errors may occur 01/22/2024 Generalized osteoarthritis (ICD-10 - M15.9) MAWV Acute Concerns/Problem List: 01/22/2024 Chronic conditions are stable at this time Will see him back quarterly Discussed the role of metformin and prediabetes We have discussed all FDA approved treatment modalities and medications for obesity and weight loss We have discussed the mechanism of GLP-1's/GIP I think this would be fantastic option for him given metabolic workup and body composition We have discussed the risks and benefits and side effects including/and not limited to Sarcopenia, intestinal obstruction, constipation, nausea, lethargy, headache There is no history of medullary thyroid cancer or multiple endocrine neoplasia There is also no history of cardiovascular disease, hypertension, palpitations, or arrhythmias In the setting of potential stimulant/amphetam ine use such as phentermine ASCVD is a stepwise approach for all adult patients, including those with known ASCVD This risk estimate is a standardized guideline to predict risk and recommend management strategies for those at risk of ASCVD Risk of cardiovascular event (Coronary or stroke or nonfatal TN or stroke) In the next 10 years We discussed the role of cholesterol and atherosclerosis. Cholesterols broken down into some particles. Cholesterol very important for body and has an important role in the synthesis of various hormones and neurotransmitters. However, today's cholesterol can have potential complications. Small density LDL particles that are oxidized or particularly dangerous. HDL cholesterol can have a protective effect. Elevated triglycerides levels are also dangerous. An elevated triglyceride and HDL ratio could be a sign of insulin resistance. Statins, fibrates, niacin, fish oil, DHEA, can be beneficial in treatment of dyslipidemia. Lifestyle modification with exercise and appropriate nutrition can decrease the risk of atherosclerosis due to dyslipidemia. Of note, some information is being carried forward from prior records for informational purposes only and is being cited so that efficiency, safety and quality of the patient's care is not compromised This note was prepared using voice recognition software and direct typing Please excuse inadvertent shirt creaser or typing errors, or uncorrected word substitutions Although every attempt has been made by the provider to proofread this document, occasional misspellings and typographical errors may still be present Due to the previous pandemic, and the use of personal protective equipment (PPE) This may decrease voice recognition accuracy Inadvertent shirt creaser errors may occur 08/22/2023 Generalized osteoarthritis (ICD-10 - M15.9) Acute Concerns/Problem List: 08/22/2023 _update labs and CPE/MWV in the summer 2023 Patient to continue seeing subspecialists Chronic pain, osteoarthritis, rheumatoid arthritis and fibromyalgia Continue Cymbalta, and Biologics with rheumatology Continuing to affect activities of daily living and functionality especially his hands Prediabetes, A1c monitoring, continue GLP-1, Euglycemic at 5.4 Discussed the role of metformin and prediabetes We have discussed all FDA approved treatment modalities and medications for obesity and weight loss We have discussed the mechanism of GLP-1's/GIP I think this would be fantastic option for him given metabolic workup and body composition We have discussed the risks and benefits and side effects including/and not limited to Sarcopenia, intestinal obstruction, constipation, nausea, lethargy, headache There is no history of medullary thyroid cancer or multiple endocrine neoplasia There is also no history of cardiovascular disease, hypertension, palpitations, or arrhythmias In the setting of potential stimulant/amphetam ine use such as phentermine ASCVD is a stepwise approach for all adult patients, including those with known ASCVD This risk estimate is a standardized guideline to predict risk and recommend management strategies for those at risk of ASCVD Risk of cardiovascular event (Coronary or stroke or nonfatal TN or stroke) In the next 10 years We discussed the role of cholesterol and atherosclerosis. Cholesterols broken down into some particles. Cholesterol very important for body and has an important role in the synthesis of various hormones and neurotransmitters. However, today's cholesterol can have potential complications. Small density LDL particles that are oxidized or particularly dangerous. HDL cholesterol can have a protective effect. Elevated triglycerides levels are also dangerous. An elevated triglyceride and HDL ratio could be a sign of insulin resistance. Statins, fibrates, niacin, fish oil, DHEA, can be beneficial in treatment of dyslipidemia. Lifestyle modification with exercise and appropriate nutrition can decrease the risk of atherosclerosis due to dyslipidemia. Of note, some information is being carried forward from prior records for informational purposes only and is being cited so that efficiency, safety and quality of the patient's care is not compromised This note was prepared using voice recognition software and direct typing Please excuse inadvertent shirt creaser or typing errors, or uncorrected word substitutions Although every attempt has been made by the provider to proofread this document, occasional misspellings and typographical errors may still be present Due to the previous pandemic, and the use of personal protective equipment (PPE) This may decrease voice recognition accuracy Inadvertent shirt creaser errors may occur 06/14/2023 Generalized osteoarthritis (ICD-10 - M15.9) Patient to continue seeing subspecialists Chronic pain, osteoarthritis, rheumatoid arthritis and fibromyalgia Continue Cymbalta, and Biologics with rheumatology Continuing to affect activities of daily living and functionality especially his hands Prediabetes, A1c monitoring, continue GLP-1, Euglycemic at 5.4 Check on PA status for Maggie ONEIL in the spring with labs Discussed the role of metformin and prediabetes We have discussed all FDA approved treatment modalities and medications for obesity and weight loss We have discussed the mechanism of GLP-1's/GIP I think this would be fantastic option for him given metabolic workup and body composition We have discussed the risks and benefits and side effects including/and not limited to Sarcopenia, intestinal obstruction, constipation, nausea, lethargy, headache There is no history of medullary thyroid cancer or multiple endocrine neoplasia There is also no history of cardiovascular disease, hypertension, palpitations, or arrhythmias In the setting of potential stimulant/amphetam ine use such as phentermine ASCVD is a stepwise approach for all adult patients, including those with known ASCVD This risk estimate is a standardized guideline to predict risk and recommend management strategies for those at risk of ASCVD Risk of cardiovascular event (Coronary or stroke or nonfatal TN or stroke) In the next 10 years We discussed the role of cholesterol and atherosclerosis. Cholesterols broken down into some particles. Cholesterol very important for body and has an important role in the synthesis of various hormones and neurotransmitters. However, today's cholesterol can have potential complications. Small density LDL particles that are oxidized or particularly dangerous. HDL cholesterol can have a protective effect. Elevated triglycerides levels are also dangerous. An elevated triglyceride and HDL ratio could be a sign of insulin resistance. Statins, fibrates, niacin, fish oil, DHEA, can be beneficial in treatment of dyslipidemia. Lifestyle modification with exercise and appropriate nutrition can decrease the risk of atherosclerosis due to dyslipidemia. Of note, some information is being carried forward from prior records for informational purposes only and is being cited so that efficiency, safety and quality of the patient's care is not compromised This note was prepared using voice recognition software and direct typing Please excuse inadvertent shirt creaser or typing errors, or uncorrected word substitutions Although every attempt has been made by the provider to proofread this document, occasional misspellings and typographical errors may still be present Due to the previous pandemic, and the use of personal protective equipment (PPE) This may decrease voice recognition accuracy Inadvertent shirt creaser errors may occur 03/27/2024 Essential (primary) hypertension (ICD-10 - I10) Continue with physiatry and pain management for lumbar radiculopathy and pain MRI of the lumbar spine is pending Continue with supportive care and pain medications RA, chronically managed by rheumatology getting monthly infusions Otherwise chronic conditions are stable Labs reviewed To get flu shot at pharmacy MOLST/HCP Discussed and Filed Of note, some information is being carried forward from prior records for informational purposes only and is being cited so that efficiency, safety and quality of the patient's care is not compromised This note was prepared using voice recognition software and direct typing Please excuse inadvertent shirt creaser or typing errors, or uncorrected word substitutions Although every attempt has been made by the provider to proofread this document, occasional misspellings and typographical errors may still be present Due to the previous pandemic, and the use of personal protective equipment (PPE) This may decrease voice recognition accuracy Inadvertent shirt creaser errors may occur 08/22/2023 Fibromyalgia (ICD-10 - M79.7) Acute Concerns/Problem List: 08/22/2023 _update labs and CPE/MWV in the summer 2023 Patient to continue seeing subspecialists Chronic pain, osteoarthritis, rheumatoid arthritis and fibromyalgia Continue Cymbalta, and Biologics with rheumatology Continuing to affect activities of daily living and functionality especially his hands Prediabetes, A1c monitoring, continue GLP-1, Euglycemic at 5.4 Discussed the role of metformin and prediabetes We have discussed all FDA approved treatment modalities and medications for obesity and weight loss We have discussed the mechanism of GLP-1's/GIP I think this would be fantastic option for him given metabolic workup and body composition We have discussed the risks and benefits and side effects including/and not limited to Sarcopenia, intestinal obstruction, constipation, nausea, lethargy, headache There is no history of medullary thyroid cancer or multiple endocrine neoplasia There is also no history of cardiovascular disease, hypertension, palpitations, or arrhythmias In the setting of potential stimulant/amphetam ine use such as phentermine ASCVD is a stepwise approach for all adult patients, including those with known ASCVD This risk estimate is a standardized guideline to predict risk and recommend management strategies for those at risk of ASCVD Risk of cardiovascular event (Coronary or stroke or nonfatal TN or stroke) In the next 10 years We discussed the role of cholesterol and atherosclerosis. Cholesterols broken down into some particles. Cholesterol very important for body and has an important role in the synthesis of various hormones and neurotransmitters. However, today's cholesterol can have potential complications. Small density LDL particles that are oxidized or particularly dangerous. HDL cholesterol can have a protective effect. Elevated triglycerides levels are also dangerous. An elevated triglyceride and HDL ratio could be a sign of insulin resistance. Statins, fibrates, niacin, fish oil, DHEA, can be beneficial in treatment of dyslipidemia. Lifestyle modification with exercise and appropriate nutrition can decrease the risk of atherosclerosis due to dyslipidemia. Of note, some information is being carried forward from prior records for informational purposes only and is being cited so that efficiency, safety and quality of the patient's care is not compromised This note was prepared using voice recognition software and direct typing Please excuse inadvertent shirt creaser or typing errors, or uncorrected word substitutions Although every attempt has been made by the provider to proofread this document, occasional misspellings and typographical errors may still be present Due to the previous pandemic, and the use of personal protective equipment (PPE) This may decrease voice recognition accuracy Inadvertent shirt creaser errors may occur 06/14/2023 Fibromyalgia (ICD-10 - M79.7) Patient to continue seeing subspecialists Chronic pain, osteoarthritis, rheumatoid arthritis and fibromyalgia Continue Cymbalta, and Biologics with rheumatology Continuing to affect activities of daily living and functionality especially his hands Prediabetes, A1c monitoring, continue GLP-1, Euglycemic at 5.4 Check on PA status for Maggie ONEIL in the spring with labs Discussed the role of metformin and prediabetes We have discussed all FDA approved treatment modalities and medications for obesity and weight loss We have discussed the mechanism of GLP-1's/GIP I think this would be fantastic option for him given metabolic workup and body composition We have discussed the risks and benefits and side effects including/and not limited to Sarcopenia, intestinal obstruction, constipation, nausea, lethargy, headache There is no history of medullary thyroid cancer or multiple endocrine neoplasia There is also no history of cardiovascular disease, hypertension, palpitations, or arrhythmias In the setting of potential stimulant/amphetam ine use such as phentermine ASCVD is a stepwise approach for all adult patients, including those with known ASCVD This risk estimate is a standardized guideline to predict risk and recommend management strategies for those at risk of ASCVD Risk of cardiovascular event (Coronary or stroke or nonfatal TN or stroke) In the next 10 years We discussed the role of cholesterol and atherosclerosis. Cholesterols broken down into some particles. Cholesterol very important for body and has an important role in the synthesis of various hormones and neurotransmitters. However, today's cholesterol can have potential complications. Small density LDL particles that are oxidized or particularly dangerous. HDL cholesterol can have a protective effect. Elevated triglycerides levels are also dangerous. An elevated triglyceride and HDL ratio could be a sign of insulin resistance. Statins, fibrates, niacin, fish oil, DHEA, can be beneficial in treatment of dyslipidemia. Lifestyle modification with exercise and appropriate nutrition can decrease the risk of atherosclerosis due to dyslipidemia. Of note, some information is being carried forward from prior records for informational purposes only and is being cited so that efficiency, safety and quality of the patient's care is not compromised This note was prepared using voice recognition software and direct typing Please excuse inadvertent shirt creaser or typing errors, or uncorrected word substitutions Although every attempt has been made by the provider to proofread this document, occasional misspellings and typographical errors may still be present Due to the previous pandemic, and the use of personal protective equipment (PPE) This may decrease voice recognition accuracy Inadvertent shirt creaser errors may occur PLAN OF TREATMENT Pending Test Test Name Order Date X ray : Spines, lumbar 01/03/2024 25OH VITAMIN D 08/22/2023 25OH VITAMIN D 06/14/2023 CBC (COMPLETE BLOOD COUNT) WITH DIFF CBC (COMPLETE BLOOD COUNT) WITH DIFF COMPREHENSIVE METABOLIC PANEL 08/22/2023 COMPREHENSIVE METABOLIC PANEL 06/14/2023 HEMOGLOBIN A1C 08/22/2023 HEMOGLOBIN A1C 03/07/2022 HEMOGLOBIN A1C 06/14/2023 LIPID PANEL 06/14/2023 LIPID PANEL 08/22/2023 TSH 08/22/2023 TSH 06/14/2023 URINALYSIS W/REFLEX CULTURE 06/14/2023 URINALYSIS W/REFLEX CULTURE 08/22/2023 Chest 2 Views Frontal and Lat 11/03/2022 CT Chest w/o Contrast 05/08/2024 US Abdomen Complete 03/17/2024 LIPID PANEL, STANDARD 10/18/2021 MICROALBUMIN, RANDOM URINE (W/CREATININE ) 10/18/2021 COMPREHENSIVE METABOLIC PANEL 10/18/2021 CBC (INCLUDES DIFF/PLT) 10/18/2021 URINALYSIS, COMPLETE 10/18/2021 HEMOGLOBIN A1c 10/18/2021 T4, FREE 10/18/2021 TSH 10/18/2021 VITAMIN D,25-OH,TOTAL,IA 10/18/2021 CT Low Dose Lung Screening 12/05/2021 Future Test Test Name Order Date HEMOGLOBIN A1C 03/07/2022 LIPID PANEL 03/07/2022 25OH VITAMIN D 12/07/2022 CBC (COMPLETE BLOOD COUNT) WITH DIFF COMPREHENSIVE METABOLIC PANEL 12/07/2022 HEMOGLOBIN A1C 12/07/2022 LIPID PANEL 12/07/2022 MICROALBUMIN, URINE 12/07/2022 TSH WITH REFLEX TO FT4 12/07/2022 URINALYSIS W/REFLEX CULTURE 12/07/2022 Next Appt Details Provider Name:GLENN KINGSLEY, 07/21/2024 11:00:00 AM, [address], [facility] [address], [place], [address], Insurance Providers Payer Name Payer Address Payer Phone Subscriber Number Group Number Insured Name Patient Relationship to Insured Coverage Start Date Coverage End Date Medicare Part B J14 [address] [place] [phone] [id number] Garrett Cortez Self - patient is the insured [employer] [place] [address] [place] [phone] [id number] Garrett Cortez Self - patient is the insured MEDICAL (GENERAL) HISTORY Medical History History ICD Code hyperlipidemia prostate cancer hemorrhoids Arthritis rheumatoid arthritis gastroesophageal reflux disease (GERD) Surgical History Surgery Date(Month/Year) Prostate Surgery Inguinal Hernia surgery Hemorrhoidectomy Heart Ablation
[2024-05-15 15:28] VITALS: BP 112/60; PULSE 87; RESP 16; O2SAT 95; BMI 26.7
== END 2024-05-15 15:46 | disposition home or self-care (01) ==
PROVIDERS: PCP Internal Medicine Rheumatology; Visit Provider Student in an Organized Health Care Education/Training Program
DX: M06.09 Rheumatoid arthritis without rheumatoid factor, multiple sites (principal); Z79.60 Long term (current) use of unspecified immunomodulators and immunosuppressants; Z22.7 Latent tuberculosis; M79.7 Fibromyalgia; Z71.6 Tobacco abuse counseling
CPT/HCPCS: 99214; G2211

== ENCOUNTER → 2024-05-15 15:22 | Outpatient (BNVA) | payer MEDICARE, MEDICAID, SELFPAY | PROVIDERS: PCP Internal Medicine Rheumatology; Visit Provider Student in an Organized Health Care Education/Training Program | DX: M06.09 Rheumatoid arthritis without rheumatoid factor, multiple sites (principal); M79.7 Fibromyalgia; M17.0 Bilateral primary osteoarthritis of knee; R20.2 Paresthesia of skin; Z22.7 Latent tuberculosis; Z71.6 Tobacco abuse counseling; Z79.631 Long term (current) use of antimetabolite agent; Z79.899 Other long term (current) drug therapy | CPT/HCPCS: 99212 ==

== ENCOUNTER 2024-10-02 15:31 | Outpatient (AMB) | payer MEDICARE, MEDICAID, SELFPAY ==
[2024-10-02 15:56] VITALS: BP 112/66; PULSE 103; O2SAT 96
--- NOTE | 2024-10-02 15:56 | A.OFFVIS_ITS ---
Vital Signs 10/02/24 15:56 Weight 174 lb 9.698 oz BP 112/66 Blood Pressure Location Rt brachial Position Sitting Pulse 103 H Pulse Source Pulse Oximeter Pulse Oximetry (%) 96 Oxygen Delivery Method Room Air Intake Visit Reasons: RA Intake Note: Patient presents today for follow up on RA and lab review. Patient states hands and legs get shaky for about 6 months every time he uses stairs. Allergies tocilizumab [From Actra] Adverse Reaction (Severe, Verified 10/02/24 15:57) Blister, muscle pain Sulfa (Sulfonamide Antibiotics) Adverse Reaction (Mild, Verified 10/02/24 15:57) Hives, Urticaria tetracycline Adverse Reaction (Mild, Verified 10/02/24 15:57) Hives, Urticaria Medication List - Last Reconciled 10/02/24 by Susan Lord MD aspirin 81 mg PO DAILY atorvastatin 40 mg PO DAILY coenzyme Q10 100 mg PO DAILY duloxetine 60 mg PO DAILY folic acid 1 mg PO DAILY meloxicam 15 mg PO DAILY methotrexate sodium 20 mg PO QWEEK multivitamin 1 tab PO DAILY omeprazole 40 mg PO QAM Simponi (golimumab) 50 mg (0.5 mL) subcut Q30D NS tirzepatide (Mounjaro) mg subcut HPI Comments Details: Patient is a 69-year-old male with hyperlipidemia, GERD, history of latent TB status post treatment, fibromyalgia, polyarticular osteoarthritis and seronegative rheumatoid arthritis here today for follow up Interval History: patient last seen 05/15/[address] Hernández. At that time he was following up for a seronegative rheumatoid arthritis on Simponi infusions as well as methotrexate 20 mg weekly with folic acid 1 mg daily. patient was doing well on the infusions noting that he was able to now make a full fist with both hands. Today, patient is complaining of worsening joint pain and swelling despite simponi infusions Rheumatologic History: Methotrexate started 10/11 Methotrexate loosing effect 05/14- Humira added 06/17 - Xeljanz in place of Humira( Humira ineffective) 08/2021-11/2021 trial of Olumiant in place of Xeljanz Trial of Enbrel late 2021 - 09/2022 - not helpful Trial of Actemra - oral ulcers after 2nd dose - methotrexate continued Orencia 07/2023 - DC 10/2023 ineffective Simponi SQ 10/2023 partially effective, changed to Simponi Aria infusions 02/2024 effective Most recent history by Dr. Hawley 04/2023: The patient returns for evaluation of his rheumatoid arthritis, osteoarthritis, and fibromyalgia. He remains on methotrexate 20 mg weekly, meloxicam 15 mg daily, and folic acid 1 mg daily. At his last visit we added in Cymbalta 30 mg daily for his fibromyalgia symptoms. He says he still has many areas of muscle and joint pains but they seem to be more tolerable at present. He notes stiffness across the fingers and MCP regions every morning. There is occasional hand paresthesia. He does not seem to have had any side effects with his medications. He is also on Mounjaro injections for weight loss. He thinks he has lost 20 lb although our charts indicate more like a 2 lb weight change in the last 6 months. He said he was told that the Mounjaro might help his hand pain but it does not seem to have done so. Current Rheumatology Medication(s): Simponi infusion Methotrexate 20mg weekly PO Folic acid 1 mg daily [facility] Medical History Hyperlipidemia GERD (gastroesophageal reflux disease) Rheumatoid arthritis Osteoarthritis of both knees Arthralgia Surgical History History of cervical spinal surgery Hx of colonoscopy H/O arthroscopic knee surgery History of carpal tunnel release of both wrists H/O prostatectomy Family History Father Stroke Social History Alcohol intake: former Patient Tobacco Use Status: Former Tobacco user Years Smoked: Ocassionally smokes Hookah Current occupational status: retired Review of Systems Const Details: Review of Systems Constitutional: Denies fever, chills, weight loss ENT: Denies vision changes, eye pain or eye redness, dental caries, dry mouth GI: Denies nausea, vomiting, diarrhea, abdominal pain, change in BM Pulm: Denies SOB, [place], hemoptysis, wheezing Cards: Denies chest pain, palpitations Skin: Denies Raynaud's, rash, nail changes, photosensitivity, ANATOMY TEACHER: Denies headaches, weakness, paresthesias, recurrent falls MSK: as per HPI All other systems reviewed and are unremarkable except noted above Physical Exam Vital Signs: Last Vital Signs Pulse 103 H 10/02/24 15:56 BP 112/66 10/02/24 15:56 Pulse Ox 96 10/02/24 15:56 Oxygen Delivery Method Room Air 10/02/24 15:56 Vital signs reviewed Physical Examination CONSTITUITIONAL Patient alert and cooperative. Well appearing and in no apparent painful distress HEENT Conjunctiva and sclera clear. Pupils equal round and reactive to light. No lymphadenopathy. CHEST/RESPIRATORY SYSTEM Normal respiratory effort and able to speak in complete sentences. Clear to auscultation bilaterally. No crackles, rales, rhonchi, wheezes heard. CARDIAC SYSTEM Regular rate and rhythm. S1 and S2 heard no murmurs. Radial pulses intact bilaterally MSK Hands: Unable to make a fist bilaterally. TTP of MCPS 3-5 on the right and left Wrists: Full range of motion at the wrists. TTP of bilateral wrists Elbows: Full range of motion without pain. No tenderness, weakness, swelling, increased warmth or erythema. Shoulders: Full range of active range of motion without pain. No tenderness, weakness, swelling, increased warmth or erythema. Knees: Full range of motion. No tenderness, swelling, increased warmth or erythema.?No effusion or crepitations Ankles: Full range of motion. No tenderness, swelling, increased warmth or erythema.? Feet: Positive squeeze test bilaterally Tender points:?No tenderness to palpation of the bilateral trapezius, supraspinatus, greater trochanters, anterior costochondral junctions, bilateral gluteal areas, bilateral suboccipital muscle insertions SKIN Skin intact without rashes. Results Reviewed Results Reviewed: Laboratory Tests 07/18/24 09:27 WBC 5.4 RBC 5.06 Hgb 16.4 Hct 47.0 Plt Count 152 L ESR 2 Sodium 142 Potassium 4.4 Chloride 109 H Carbon Dioxide 26 BUN 15 Creatinine 0.69 AST 23 ALT 25 C-Reactive Protein 0.19 Laboratory Tests 11/02/23 09/12/24 09:25 08:56 Hepatitis A IgM Ab Nonreactive Hep Bs Antigen Negative Hep Bs Antibody NONREACTIVE Hep B Core Total Ab Nonreactive Hepatitis C Ab (EIA) Nonreactive TB Test (T-Spot) Com Negative Assessment & Plan Assessment & Plan (1) Rheumatoid arthritis: Comment: Methotrexate started 10/11 Methotrexate loosing effect 05/14- Humira added 06/17 - Xeljanz in place of Humira( Humira ineffective) 08/2021-11/2021 trial of [address] in place of Xeljanz Trial of Enbrel late 2021 - 09/2022 - not helpful Trial of Actemra - oral ulcers after 2nd dose - methotrexate continued Orencia 07/2023 - DC 10/2023 ineffective Simponi SQ 10/2023 partially effective, changed to Simponi Aria infusions 02/2024 effective Code(s): M06.9 - Rheumatoid arthritis, unspecified Category: Medical Qualifiers: Rheumatoid arthritis location: multiple sites Rheumatoid factor presence: without rheumatoid factor Qualified Code(s): M06.09 - Rheumatoid arthritis without rheumatoid factor, multiple sites Plan: #Seronegative RA Patient is a 69-year-old male with seronegative rheumatoid arthritis here for follow up. He is on methotrexate 20 mg weekly, folic acid and simponi infusions. Despite this regimen patient still has moderately active RA with tender and swollen joints on exam today. And continued prolonged AM stiffness. 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) use of unspecified immunomodulators and immunosuppressants Category: Medical Plan: #Long-term Use of LOUIE inhibitor: Rinvoq Discussed with patient the benefits and risks of LOUIE inhibitors for the management of the rheumatic condition Benefits include reduce pain, maintenance of remission and reduction of flares Risks include thromboembolic events, skin cancer and nonmelanoma skin cancers, other forms of cancer, cardiovascular alcohol and mortality Advise patient that they are to hold the medication and for up to 1 week after a febrile illness or an open skin wound (3) Latent tuberculosis: Comment: Positive QuantiFERON gold test March 2020 Last negative test was March 2018. Patient started on isoniazid and pyridoxine. He has Received INH for 9 months ending Jan 2021 Code(s): Z22.7 - Latent tuberculosis Category: Medical Plan: #Latent Tb Positive QuantiFERON gold test March 2020 Last negative test was March 2018. Patient started on isoniazid and pyridoxine. He has Received INH for 9 months ending Jan 2021 Nost recent Tb test negative (4) Fibromyalgia: Code(s): M79.7 - Fibromyalgia Category: Medical Plan: #Fibromyalgia Continue with duloxetine 60 mg daily (5) Encounter for methotrexate monitoring: Code(s): Z51.81 - Encounter for therapeutic drug level monitoring; Z79.631 - half-way (current) use of antimetabolite agent Plan: #Long-term Current Use of Methotrexate Discussed with patient the benefits and risks of methotrexate for managing their rheumatic condition Benefits include reduced pain, reduced mortality, maintenance of remission and reduction of flares Risks include oral ulcers, photosensitivity, hepatotoxicity, hematologic toxicity, pneumonitis, flu-like symptoms (especially day after administration), nodulosis, lymphomas ? Limit alcohol and avoid Bactrim ? Monitoring: CBC, BMP, LFTs every 3-4 months and hepatitis serologies as needed Plan I spent 36 minutes reviewing patient's chart, evaluating patient, ordering diagnostic workup, counseling patient and documenting in the chart Medications: New upadacitinib ER (Rinvoq) 15 mg PO DAILY 30 tabs 5RF M06. - Rheumatoid arthritis without rheumatoid factor, multiple sites folic acid 1 mg PO DAILY 90 tabs 1RF M06. - Rheumatoid arthritis without rheumatoid factor, multiple sites Changed From methotrexate sodium 20 mg PO QWEEK M06. - Rheumatoid arthritis without rheumatoid factor, multiple sites To methotrexate sodium 20 mg (8 x 2.5 mg) PO QWEEK 104 tabs 1RF 90 days M06.09 - Rheumatoid arthritis without rheumatoid factor, multiple sites Discontinued Simponi (golimumab) Discontinued Reason: Doctor's Order 50 mg (0.5 mL) subcut Q30D 0.5 mL 3RF NS Coding Level of Care Code Est Pt Level 4 (31701) Complex EM visit Add On G2211 Diagnoses Rheumatoid arthritis of multiple sites with negative rheumatoid factor M06.09 Rheumatoid arthritis location: multiple sites Rheumatoid factor presence: without rheumatoid factor Long-term use of immunosuppressant medication Z79.60 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 Fibromyalgia M79.7 Encounter for methotrexate monitoring Z51.81; Z79.631
--- OUTSIDE RECORDS SUMMARY | 2024-10-02 16:02 | XMS_ITS | Encounter Summary ---
[facility] Address [address] [place] [address] Care Team Providers Care Bowling Ball Grader Name Role Phone [facility], Pcp Primary Care Provider Manolo e Amber Wood MD Primary Care Provider Joe Nails NP Unavailable Unavailable Amber Wood MD Unavailable Unavailab Joe Treviño NP Primary Care Provider Agustin Zacarias MD Primary Care Provider Unavailabl e Reason for Visit * Reason Onset Date Comments Letter 04/05/2021 Encounter Details Date Type Department Care Team Description 04/05/2021 Telephone Rheumatology - [address] [address] Aren Hawley MD Letter Social History Tobacco Use Types Packs/Day Years Used Date Smoking Tobacco: Former Cigarettes Q uit: 09/18/2016 Smokeless Tobacco: Never Comments:quit 19 years ago Alcohol Use Standard Drinks/Week Comments No 0 (1 standard drink = 0.6 oz pur e alcohol) Sex Assigned at Date Recorded Not on file Job Start Date Occupation Industry Not on file Not on file Not on file COVID-19 Exposure Response Date Recorded In the last month, have you been in contact with someone who was confirmed or suspected to have Coronavirus / COVID-19? No / Unsure 03/23/2021 3:14 PM EDT documented as of this encounter Miscellaneous Notes * Telephone Encounter - Loly Yanes - 05/03/2021 11:06 AM EST You would just need to check-off the EKG box at the bottom of the page. After surgery is scheduled,he can go to the hospital - on a walk-in basis between 03-08 or 05-30. For future reference this isfor labs & EKG's, no appointments are necessary, and he doesn't need special orders. * Telephone Encounter - Radha Snyder MD - 05/02/2021 6:11 PM EST Loly This patient has severe left carpal tunnel syndrome so I think he is eager to get it on schedule. I did not readily see an EKG on his chart Patient had an ablation some years ago with Dr. Lim at [facility] The patient is not on any blood thinners Seems prudent that we should at least get a preoperative EKG Patient is also on Biologics for his rheumatoid arthritis so ideally he would stop them typically 10 days in advance * Telephone Encounter - Ame CliftonP.NDov - 04/06/2021 10:57 AM EST Spoke with patient, explained he will need to get this letter from his PCP Patient states his PCP has retired and now needs to find a new PCP He accepted the advice from Dr Marleen PELAEZ to Dr Hawley * Telephone Encounter - Aren Hawley MD - 04/05/2021 3:40 PM EST This sounds like his PCP should be handling this. I don;t reall sending any agency in to see him Dr. Hawley * Telephone Encounter - Ame Sorto - 04/05/2021 1:52 PM EST Patient calls today req a letter or something be sent to [facility] so he may continue with services, states a nurse comes over to his home monthly to check on him and do vitals. shun rec'd Dr Hawley's last office note of 01/24/21 and they then denied patient services, they told pt there was nothing wrong with him I called Shun at [phone] No answer, no ans machine Patient is pleading that we help him Dr Hawley do you want to do a letter to this program re patients dx and medication needs? documented in this encounter Plan of Treatment Not on file documented as of this encounter Visit Diagnoses Not on filedocumented in this encounter Care Teams Bowling Ball Grader Relationship Specialty Start Date End Date Community, Pcp PCP - General Internal Medicine 11/12/20 05/01/21 Amber Wood MD PCP - General Internal Medicine 05/02/21 2 Joe Uriarte, BLAKE PCP - General Family Practice 12/07/21 08/10/22 Agustin Mcfarlane MD PCP - General Internal Medicine 08/11/22 Joe Uriarte NP Primary Care Physician Family Practice 12/07/2112/07 Amber Wood MD Internal Medicine 12/07/21 documented as of this encounter
--- OUTSIDE RECORDS SUMMARY | 2024-10-02 16:02 | XMS_ITS | Encounter Summary ---
Author Organization [facility] Address [address] [place] [address] Care Team Providers Care Cement Truck Loader Name Role Phone Amber Wood MD Primary Care Provider Teresita Grace, Pcp Primary Care Provider Unavailabl e Amber Wood MD Primary Care Provider Teresita Joe Jarvis NP Unavailable Unavailable Amber Wood MD Unavailable Unavailab Joe Treviño NP Primary Care Provider Agustin Zacarias MD Primary Care Provider Unavailabl e Reason for Visit * Reason Comments E-prescribe Rx Request Encounter Details Date Type Department Care Team Description 01/20/2018 Refill Rheumatology [address] [address] Aren Hawley MD E-prescribe Rx Request Social History Tobacco Use Types Packs/Day Years Used Date Smoking Tobacco: Former Cigarettes Q uit: 09/18/2016 Smokeless Tobacco: Never Comments:quit 19 years ago Alcohol Use Standard Drinks/Week Comments No 0 (1 standard drink = 0.6 oz pur e alcohol) Sex Assigned at Date Recorded Not on file Job Start Date Occupation Industry Not on file Not on file Not on file documented as of this encounter Miscellaneous Notes * Telephone Encounter - Hazel Lui L.P.N. - 01/21/2018 11:31 AM EDT Lab Results Component Value Date SGOT 16 12/25/2017 SGPT 23 12/25/2017 * Telephone Encounter - Chandni Conner M.A. - 01/21/2018 11:06 AM EDT Given by Rheumotology * Telephone Encounter - Farheen Merrill - 01/21/2018 9:59 AM EDT Patient would like script to be: E-PRESCRIBED/FAXED TO PHARMACY WHEN WAS THE PATIENT'S LAST APPOINTMENT IN ADULT MEDICINE? 12-25-2017 WHEN WAS THE LAST TIME THE PATIENT SAW THEIR PCP? Same as above Does patient have an upcoming appointment? Yes 04-23-2018 (THE MEDICATION REQUESTED IS ON THE MED LIST ABOVE) All of the medications requested were on the CURRENT MEDS list Did you check the Pharmacy information above?: YES Patient wants: 30 -day supply Is this a mail order prescription request ? NO If the refill is from a FAXED refill request what is the RX # listed on the fax? N/A Patients current insurance carrier is: [facility] / Plan: [facility] / Product Type: MEDICAID RISK documented in this encounter Plan of Treatment Not on file documented as of this encounter Visit Diagnoses Not on filedocumented in this encounter Care Teams Cement Truck Loader Relationship Specialty Start Date End Date Amber Wood MD PCP - General Internal Medicine 09/07/16 1 [facility], Pcp PCP - General Internal Medicine 11/12/20 05/01/21 Amber Wood MD PCP - General Internal Medicine 05/02/21 2 Joe Uriarte NP PCP - General Family Practice 12/07/21 08/10/22 Agustin Mcfarlane MD PCP - General Internal Medicine 08/11/22 Joe Uriarte NP Primary Care Physician Family Practice 12/07/2112/07 Amber Wood MD Internal Medicine 12/07/21 documented as of this encounter
--- OUTSIDE RECORDS SUMMARY | 2024-10-02 16:02 | XMS_ITS ---
Author Organization [facility] Address [address] [place] [address] Care Team Providers Care Sheep Herder Name Role Phone GLENN KINGSLEY Unavailable [phone] MEDICATIONS Medication SIG (Take, Route, Frequency, Duration) Notes Start Date End Date Status Acyclovir 5 % 1 application Warehouse Director ally Five times a day for 4 day(s) 09/24/2024 Active Encounters Encounter Location Date Provider Diagnosis [phone] [address] 09/24/2024 GLENN KINGSLEY PLAN OF TREATMENT Medication Medication Name Sig Start Date Stop Date Notes Acyclovir 5 % 1 application Warehouse Director ally Five times a day for 4 day(s) 09/24/2024 Next Appt Details Provider Name:GLENN KINGSLEY, 10/17/2024 10:30:00 AM, [address] [facility], [facility], [place], [address], Progress Notes * Matt CORTZEOB:1955 (69 yo M)Acc No.[id number]:09/24/2024 Patient:??DANA Garrett :1955?Age:69 Y?Sex:Abdelrahman hooker Address:[address] [place] [id number] * Refills?? Start Acyclovir Cream, 5 %, Externally, 20, 1 application, Five times a day, 4 day(s) * true * Date:??
--- OUTSIDE RECORDS SUMMARY | 2024-10-02 16:02 | XMS_ITS | Encounter Summary ---
Author Organization [facility] Address [address] [place] [address] Care Team Providers Care Property Utilization Officer Name Role Phone Amber Wood MD Primary Care Provider Teresita Grace, Pcp Primary Care Provider Unavailabl e Amber Wood MD Primary Care Provider Joe Nails NP Unavailable Unavailable Amber Wood MD Unavailable Unavailab Joe Treviño NP Primary Care Provider Agustin Zacarias MD Primary Care Provider Unavailabl e Reason for Visit * Reason Onset Date Comments Medication 05/13/2018 Encounter Details Date Type Department Care Team Description 05/13/[address] [address] Amber Wood MD Medication Social History Tobacco Use Types Packs/Day Years [...] encounter Miscellaneous Notes * Telephone Encounter - Ryann Shetty - 05/13/2018 12:34 PM EST Pt is in the lobby [facility] with his Humira medication. Pt states he was told to just come in with medication and someone would show him how to use it. Pt states he will wait until someone comesback from lunch. documented in this encounter Plan of Treatment Not on file documented as of this encounter Visit Diagnoses Not on filedocumented in this encounter Care Teams Property Utilization Officer Relationship Specialty Start Date End Date Amber Wood MD PCP - General Internal Medicine 09/07/16 1 [facility] PCP - General Internal Medicine 11/12/20 05/01/21 Amber Wood MD PCP - General Internal Medicine 05/02/21 2 Joe Uriarte NP PCP - General Family Practice 12/07/21 08/10/22 Agustin Mcfarlane MD PCP - General Internal Medicine 08/11/22 Joe Uriarte NP Primary Care Physician Family Practice 12/07/2112/07 Amber Wood MD Internal Medicine 12/07/21 documented as of this encounter
--- OUTSIDE RECORDS SUMMARY | 2024-10-02 16:02 | XMS_ITS | Encounter Summary ---
Author Organization [facility] Address [address] [place] [address] Care Team Providers Care Credit Associate Name Role Phone [facility], [facility]cp Primary Care Provider Manolo e Amber Wood MD Primary Care Provider Joe Nails NP Unavailable Unavailable Amber Wood MD Unavailable Unavailab Joe Treviño NP Primary Care Provider Agustin Zacarias MD Primary Care Provider Unavailabl e Reason for Visit * Reason Onset Date Comments Letter 02/16/2021 Encounter Details Date Type Department Care Team Description 02/16/2021 Telephone Rheumatology - [address] [address] Aren Hawley MD Letter Social History Tobacco [...] have Coronavirus / COVID-19? No / Unsure 02/02/2021 2:51 PM EDT documented as of this encounter Miscellaneous Notes * Telephone Encounter - Ame Sorto L.P.N. - 02/16/2021 4:38 PM EDT Authorization of release obtained from Marvin Last office note from Dr Hawley faxed to [employer] at [phone] Spoke with patient and requested this to be faxed He also states Dr Conway suggesting hand surgery for his carpal tunnel Referral pending * Telephone Encounter - Ame Sorto L.P.N. - 02/16/2021 2:54 PM EDT Spoke with [employer] at [phone] They will send fax to office re what they need Physicalneeds to come from PCP They need a report from every provider patient see's * Telephone Encounter - Myah Penaloza - 02/16/2021 2:46 PM EDT Patient stopped by asking for a letter for his insurance medicare and medicaid. Letter need to state patient's diagnosis with ICD-10 diagnosis and medication(s) list along with the PCP/PSF Form. Mostrecent office note ( Full Soap Note). A letter that addresses the patient's ADLs and IADLs needs. Patient needs this kind of letter from every provider he sees. Please review documented in this encounter Plan of Treatment Not on file documented as of this encounter Visit Diagnoses Not on filedocumented in this encounter Care Teams Credit Associate Relationship Specialty Start Date End Date [facility], [facility] PCP - General Internal Medicine [...]
--- OUTSIDE RECORDS SUMMARY | 2024-10-02 16:02 | XMS_ITS | Encounter Summary ---
[facility] Address [address] [place] [address] Care Team Providers Care Home Aide Name Role Phone Amber Wood MD Unavailable Unavailab Joe Treviño NP Primary Care Provider Agustin Zacarias MD Primary Care Provider Unavailabl e Reason for Visit * Reason Onset Date Comments Medication 05/24/2022 Encounter Details Date Type Department Care Team Description 05/24/2022 Refill Gastroenterology [address] [address] Zully Egan MD Medication Social History Tobacco Use Types [...] on file documented as of this encounter Plan of Treatment Not on file documented as of this encounter Visit Diagnoses Not on filedocumented in this encounter Care Teams Home Aide Relationship Specialty Start Date End Date Joe Uriarte NP PCP - General Family Practice 12/07/21 08/10/22 Agustin Mcfarlane MD PCP - General Internal Medicine 08/11/22 Amber Wood MD Internal Medicine 12/07/21 documented as of this encounter
--- OUTSIDE RECORDS SUMMARY | 2024-10-02 16:02 | XMS_ITS | Encounter Summary ---
Author Organization [facility] Address [address] [place] [address] Care Team Providers Care Radiologic Technology Teacher Name Role Phone Amber Wood MD Primary Care Provider Teresita Grace Pcp Primary Care Provider Unavailabl e Amber Wood MD Primary Care Provider Joe Nails BOILER ROOM OPERATOR Unavailable Unavailable Amber Wood MD Unavailable Unavailab Joe Treviño NP Primary Care Provider Agustin Zacarias MD Primary Care Provider Unavailabl e Encounter Details Date Type Department Care Team Description 09/06/2016 Engineering Documentation Specialist Report Medical Records [address] [place] [id number] Amber Wood MD Social History Tobacco Use Types Packs/Day Years Used Date Smoking Tobacco: Never Assessed Sex Assigned at Date Recorded Not on file Job Start Date Occupation Industry Not on file Not on file Not on file documented as of this encounter Plan of Treatment Not on file documented as of this encounter Visit Diagnoses Not on filedocumented in this encounter Care Teams Radiologic Technology Teacher Relationship Specialty Start Date End Date Amber Wood MD PCP - General Internal Medicine 09/07/16 1 Sanjay, Pcp PCP - General Internal Medicine 11/12/20 [...]
--- OUTSIDE RECORDS SUMMARY | 2024-10-02 16:02 | XMS_ITS | Encounter Summary ---
Author Organization [facility] Address [address] [place] [address] Care Team Providers Care Business Support Manager Name Role Phone Amber Wood MD Primary Care Provider Teresita Grace Pcp Primary Care Provider Unavailabl e Amber Wood MD Primary Care Provider Joe Nails NP Unavailable Unavailable Amber Wood MD Unavailable Unavailab Joe Treviño NP Primary Care Provider Agustin Zacarias MD Primary Care Provider Unavailabl e Encounter Details Date Type Department Care Team Description 09/25/2016 Transfer Records Medical Records [address] [place] [id number] Abstract, Provider Social History Tobacco Use Types Packs/Day Years Used Date Smoking Tobacco: Former Cigarettes Q uit: 09/18/2016 Comments:quit 19 years ago Alcohol Use Standard [...] on filedocumented in this encounter Care Teams Business Support Manager Relationship Specialty Start Date End Date Amber [...]
--- OUTSIDE RECORDS SUMMARY | 2024-10-02 16:02 | XMS_ITS ---
Author Organization [facility] Address [address] [place] [address] Care Team Providers Care Premix Concrete Batcher Name Role Phone GLENN KINGSLEY Unavailable [phone] chest results Encounters Encounter Location Date Provider Diagnosis [address] [place] [address] [address] [place] [address] 09/11/2024 GLENN KINGSLEY PLAN OF TREATMENT Next Appt Details Provider Name:GLENN KINGSLEY, 10/17/2024 10:30:00 AM, [address] [facility], [address], [place], [address], Progress Notes * Matt CORTEZOB:1955 (69 yo M)Acc No.[id number]:09/11/2024 Patient:??Garrett CORTEZ :1955?Age:69 Y?Sex:Abdelrahman hooker Address:[address] [place] [id number] * true * Date:??
--- OUTSIDE RECORDS SUMMARY | 2024-10-02 16:02 | XMS_ITS ---
Author Name [facility] Organization Unknown Encounters Encounter Type Encounter Reason Primary Diagnosis Location Date Ambulatory Count includes the [facility] 03/25/2024 Care Team Organization Name Specialty Phone Email Start Date End Da te Count includes the [facility] 2024
--- OUTSIDE RECORDS SUMMARY | 2024-10-02 16:02 | XMS_ITS | Encounter Summary ---
Author Organization [facility] Address [address] [place] [address] Care Team Providers Care Drier Tender Name Role Phone Amber Wood MD Primary Care Provider Teresita Grace, Pcp Primary Care Provider Unavailabl e Amber Wood MD Primary Care Provider Joe Nails NP Unavailable Unavailable Amber Wood MD Unavailable Unavailab Joe Treviño NP Primary Care Provider Agustin Zacarias MD Primary Care Provider Unavailabl e Reason for Visit * Reason Onset Date Comments REFERRAL 06/04/2020 Encounter Details Date Type Department Care Team Description 06/04/2020 Telephone Rheumatology - [address] [address] Aren Hawley MD REFERRAL Social History Tobacco Use Types Packs/Day Years [...] have Coronavirus / COVID-19? No / Unsure 06/04/2020 11:22 AM EST documented as of this encounter Miscellaneous Notes * Telephone Encounter - Giovanni Rosa - 06/04/2020 11:48 AM EST Patient was referred to TB Clinic at [facility]. He received a call from them telling him to go to [facility]. He was unable to get through on the phone lines, please contact pt documented in this encounter Plan of Treatment Not on file documented as of this encounter Visit Diagnoses Not on filedocumented in this encounter Care Teams Drier Tender Relationship Specialty Start Date End Date Amber Wood MD PCP - General Internal Medicine 09/07/16 1 [facility], Pcp PCP - General Internal Medicine 11/12/20 05/01/21 Amber Wood MD PCP - General Internal Medicine 05/02/21 2 Joe Uriarte NP PCP - General Family Practice 12/07/21 08/10/22 Agustin Mcfarlane MD PCP - General Internal Medicine 08/11/22 Joe Uriarte EQUITIES TRADER Primary Care Physician Family Practice 12/07/2112/07 Amber Wood MD Internal Medicine 12/07/21 documented as of this encounter
--- OUTSIDE RECORDS SUMMARY | 2024-10-02 16:02 | XMS_ITS ---
Author Organization [facility] Address [address] [place] [address] Care Team Providers Care Behavioral Specialist Name Role Phone WELLINGTONEhGLENN Unavailable [phone] MEDICATIONS Medication SIG (Take, Route, Frequency, Duration) Notes Start Date End Date Status Zovirax 5 % 1 application to aff ected area Externally Five times a day for 4 days 09/21/2024 Active Encounters Encounter Location Date Provider Diagnosis [address] [facility] [address] [place] [address] 09/21/2024 GLENN KINGSLEY PLAN OF TREATMENT Medication Medication Name Sig Start Date Stop Date Notes Zovirax 5 % 1 application to aff ected area Externally Five times a day for 4 days 09/21/2024 Next Appt Details Provider Name:GLENN KINGSLEY, 10/17/2024 10:30:00 AM, [address] [facility], [address], [place], [address], Progress Notes * Matt CORETZOB:1955 (69 yo M)Acc No.[id number]:09/21/2024 Patient:??DANAPratike :1955?Age:69 Y?Sex:Abdelrahman hooker Address:[address] [place] [address] * Refills?? Start Zovirax Cream, 5 %, Externally, 30 Gram, 1 application to affected area, Five times a day, 4 days, Refills=3 * true * Date:??
--- OUTSIDE RECORDS SUMMARY | 2024-10-02 16:02 | XMS_ITS | Encounter Summary ---
Author Organization [facility] Address [address] [place] [address] Care Team Providers Care Telephone Advice Nurse Name Role Phone Amber Wood MD Primary Care Provider Teresita Grace, Pcp Primary Care Provider Unavailabl e Amber Wood MD Primary Care Provider Joe Nails CREDIT ANALYSIS MANAGER Unavailable Unavailable Amber Wood MD Unavailable Unavailab Joe Treviño NP Primary Care Provider Agustin Zacarias MD Primary Care Provider Unavailabl e Encounter Details Date Type Department Care Team Description 10/05/2011 [facility] Proxy Form Medical Records [address] [place] [address] Abstract, Provider Social History Tobacco Use Types Packs/Day Years Used Date Smoking Tobacco: Never Assessed Sex Assigned at Date Recorded Not on file Job Start Date Occupation Industry Not on file Not on file Not on file documented as of this encounter Plan of Treatment Not on file documented as of this encounter Visit Diagnoses Not on filedocumented in this encounter Care Teams Telephone Advice Nurse Relationship Specialty Start Date End Date Amber [...]
--- OUTSIDE RECORDS SUMMARY | 2024-10-02 16:02 | XMS_ITS | Encounter Summary ---
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 Thank you Kiki Referrals French Edge Operator * Telephone Encounter - Patti Jiang M.A. - 06/03/2020 2:26 PM EST Form has been filled out and signed by Dr. aHwley. Form faxed to referrals department at [phone]. Referrals department has been notified. * Telephone Encounter - Kiki Mariscal - 06/03/2020 8:45 AM EST I faxed it to you this morning. * Telephone Encounter - Aren Hawley MD - 06/02/2020 4:48 PM EST Kiki, Can you just fax it to me at [phone]? I will fill it out and fax it back to you. I am trying to move this along a bit quicker. I referred him last month and he has no appointment yet Aren Hawley MD * Telephone Encounter - Kiki Mariscal - 06/02/2020 3:[address] Hawley, You placed an order for the patient to see the TB Clinic. I have interofficed a TB form to you. Please complete and interoffice back to the referrals department at your soonest convenience. Thank you Kiki Referrals French Edge Operator documented in this encounter Plan of Treatment Not on file documented as of this encounter Visit Diagnoses Not on filedocumented in this encounter Care Teams Clinical Safety Manager Relationship Specialty Start Date End Date Amber Wood MD PCP - General Internal Medicine 09/07/16 1 [facility], Pcp PCP - General Internal Medicine [...]
--- OUTSIDE RECORDS SUMMARY | 2024-10-02 16:02 | XMS_ITS | Encounter Summary ---
Author Organization [facility] Address [address] [place] [address] Care Team Providers Care Spinning Bath Person Name Role Phone Amber Wood MD Primary Care Provider Joe Nails NP Unavailable Unavailable Amber Wood MD Unavailable Unavailab Joe Treviño NP Primary Care Provider Agustin Zacarias MD Primary Care Provider Unavailabl e Reason for Visit * Reason Onset Date Comments Call From Pharmacy 05/09/2021 Encounter Details Date Type Department Care Team Description 05/09/2021 Telephone Rheumatology - [address] [address] Aren Hawley MD Call From Pharmacy Social History Tobacco Use Types Packs/Day Years [...] have Coronavirus / COVID-19? No / Unsure 05/12/2021 12:33 PM EST documented as of this encounter Miscellaneous Notes * Telephone Encounter - Ame Sorto L.P.N. - 05/09/2021 1:07 PM EST Lab Results Component Value Date ALB 4.1 04/12/2020 SGOT 22 03/08/2021 SGPT 33 03/08/2021 TBILI 0.4 04/12/2020 ALKPHOS 80 04/12/2020 TP 7.7 04/12/2020 Lab Results Component Value Date NA 140 04/12/2020 K 4.4 04/12/2020 CO2 29 04/12/2020 CL 106 04/12/2020 BUN 18 04/12/2020 CREAT 0.94 03/08/2021 GLU 104 04/12/2020 CA 9.6 04/12/2020 GFR > 60 03/08/2021 [facility] * Telephone Encounter - Lisha Borrero - 05/09/2021 12:30 PM EST What is the name of the medication patient is having a problem with?: meloxicam (MOBIC) 15 MG tablet methotrexate 2.5 MG tablet / Tofacitinib Citrate (Xeljanz) 5 MG Tab What is the problem?: meloxicam and methotrexate was faxed to [facility] - should be faxed to [place] [address] Requested a refill on Xeljanz also Is the patient calling about the problem? NO If the patient is not the caller who is? Pharmacist: Flor Is this a NEW medication?: YES - the Xeljanz is not a new RX Who prescribed this medication for the patient? Dr Hawley Who is patients PCP?: Amber Hebert [place] / Product Type: MEDICARE [id number] documented in this encounter Plan of Treatment Not on file documented as of this encounter Visit Diagnoses Diagnosis Seronegative rheumatoid arthritis (HCC) Rheumatoid arthritis documented in this encounter Care Teams Spinning Bath Person Relationship Specialty Start Date End Date Amber Wood MD PCP - General Internal Medicine 05/02/21 2 Joe Uriarte NP PCP - General Family Practice 12/07/21 08/10/22 Agustin Mcfarlane MD PCP - General Internal Medicine 08/11/22 Joe Uriarte NP Primary Care Physician Family Practice 12/07/2112/07 Amber Wood MD Internal Medicine 12/07/21 documented as of this encounter
--- OUTSIDE RECORDS SUMMARY | 2024-10-02 16:02 | XMS_ITS | Clinical Summary ---
Author Organization [facility] Address [address] [place] [address] Phone Care Team Providers Care It Trainee Name Role Phone Joe Urairte ICE CREAM SERVER Primary Care Provider Allergies Active Allergy Reactions Criticality Noted Date Comments Sulfasalazine Hives 09/18/2016 Tetracycline Hives 09/18/2016 Medications coenzyme Q-10 100 mg capsule Take 1 capsule (100 mg total) by mouth 2 (two) times a day. 12/04/2023 Active folic acid (FOLVITE) 1 mg tablet Take 1 tablet (1,000 mcg total) by mouth 1 (one) time each day. Active atorvastatin (LIPITOR) 40 mg tablet Take 1 tablet (40 mg total) by mouth 1 (one) time each day. Active methotrexate 2.5 mg tablet TAKE 8 TABLETS BY MOUTH ONCE WEEKLY (75 DAYS) Active DULoxetine (CYMBALTA) [address] capsule Take 1 capsule (60 mg total) by mouth 1 (one) time each day. 01/21/2024 Active aspirin 81 mg chewable tablet Chew. Acti ve omeprazole (PriLOSEC) [address] capsule TAKE 1 CAPSULE BY MOUTH EVERY DAY 30 MINUTES BEFORE MORNING MEAL Active Mounjaro 10 mg/0.5 mL injectionIndica tions:weight loss 03/31/2024 Active oxyCODONE (ROXICODONE) 5 mg immediate release tablet Take 1 tablet (5 mg total) by mouth every 4 (four) hours if needed for severe pain. Max Daily Amount: 30 mg 30 tablet 04/10/2024 Active meloxicam (MOBIC) 15 mg tablet 04/10/2024 Active docusate sodium (COLACE) 100 mg capsule TAKE 1 CAPSULE BY MOUTH THREE TIMES A DAY NEEDED FOR 30 DAYS 04/14/2024 Active HYDROmorphone (DILAUDID) 4 mg tablet TAKE 1/2 TO 1 TABLET BY MOUTH EVERY 6 HOURS NEEDED FOR SEVERE PAIN FOR 10 DAYS 04/14/2024 Active Active Problems Problem Noted Date Diagnosed Date Erectile dysfunction after radical prostatectomy 04/08/2024 MAXIMUS (stress urinary incontinence), male 04/08/20 24 Lumbar disc herniation with radiculopathy 2023 Assessment & Plan (05/30/2024 3:07 PM EST): Mr. Ewing has done quite well since his lumbar discectomy I would like to resume his regular activities. Exercise and going back to the gym and he has no restrictions though I recommended starting slowly. I believe the left-sided discomfort he describes is mild left sacroiliitis though he can sleep on that side. The occasional ibuprofen would be fine to take. He is welcome to follow-up with us if there are any new concerns. Assessment & Plan (04/22/2024 2:03 PM EST): Patient is 12 days s/p left L3-4 minimally invasive discectomy. He no longer has the nerve pain running down the left leg. He is describing pain in the left low back, approximately SI joint region, 09/04. He has had no wound drainage, fevers, sweats chills. No bowel bladder issues. He is eating well, ambulating. He is not using any pain medication, including Tylenol or NSAIDs. He tried narcotics for a few days after surgery, had negative side effects and stopped them. Mr. Ewing is doing well postop, sees improvement in his left leg pain. It sounds like he may have some left SI joint inflammation/pain, hopefully will get better with time as things heal, also could still be related to incisional/muscle pain. I asked him to call if he has any worsening symptoms, questions or concerns. I told him he could try NSAIDs, he will consider. He has a follow-up appointment with Dr. Rose 05/30/2024. Assessment & Plan (04/08/2024 11:59 AM EST): Gildardo describes 2 months of worsening left sided low back pain and radiation down the left leg. It seems to be in an L5 distribution. His pain has persisted despite steroid injections, a Medrol Dosepak, Lyrica, tizanidine, and oxycodone. He is neurologically intact. The MRI of the lumbar spine from [place] obtained on March 28, 2024 shows a left L3-4 disc herniation in the lateral recess. I reviewed the films with Dr. Rose who did agree that it is possible this disc herniation could be contacting the left L5 nerve root which would be consistent with the patient's complaint. Risks, benefits, and alternatives to a left L3-4 minimally invasive microdiscectomy were discussed with the patient in detail. Given the location of the disc herniation and the pattern of his symptoms, I quoted him a success rate of 75%. He asked appropriate questions, appeared to understand, and wishes to proceed with surgery. Radiculopathy, lumbar region 04/08/2024 TB lung, latent 04/26/2020 Overview (04/08/2024): Positive QuantiFERON gold test March 2020 Last negative test was March 2018. Patient started on isoniazid and pyridoxine. He has appointment infectious disease to review the situation. Received INH for 9 months ending Jan 2021 Primary osteoarthritis of both knees 12/25/2017 Overview (04/08/2024): NEOS: received gel injections ~ 2018 - a few months' benefit Carpal tunnel syndrome, bilateral 02/27/2017 Overview (04/08/2024): EMG 2016: mild on left, moderate-severe on right Seronegative rheumatoid arth ritis (CMS/HCC V24, CMS/HCC V28) 01/24/2017 Overview (04/08/2024): Methotrexate started 10/11 Methotrexate loosing effect 05/14- Humira added 06/17 - Xeljanz in place of Humira Gastric reflux syndrome 09/18/2016 Hyperlipidemia 09/18/2016 Encounters Date Type Department Care Team Description 08/12/2024 8:13 AM EDT - 08/12/2024 11:59 PM EDT Hospital Encounter [facility] X[facility] [address] [place] [address] Dysphagia, unspecified type Discharge Disposition: Home or Self Care from Last 3 Months Immunizations Name Administration Dates Next Due Influenza Quadravalent, MDCK , 0.5ml, with preservative (Flucelvax) 6mo and older 04/25/2017 Influenza trivalent, 0.5mL ( Fluzone High-dose) 65yo and older 03/23/2021,04/12/2020,02/25/2019 Influenza trivalent, with pr eservative (Fluzone; Afluria) 6mo and older 03/07/2022 Pneumococcal conjugate 20 va lent (Prevnar 20, PCV 20) 2mo and older 02/04/2024 Pneumococcal polysaccharide 23 valent (Pneumovax 23) 2yo and older 12/09/2021 RSV, bivalent, protein subun it RSVpreF, 0.5mL, Preservative Free (Arexvy) 60yo and older 06/18/2023 Zoster Live 12/07/2022 Surgical History Surgery Date Site/Laterality Comments KNEE ARTHROSCOPY W/ DEBRIDEMENT Bilateral R 2011; L 2017 OTHER SURGICAL HISTORY CATHETER ABLATION ATRIOVENTR NODE FUNCTION PROSTATE SURGERY 05/28/2010 - 05/27/2011 for cancer CARPAL TUNNEL RELEASE 11/25/2017 - 12/25/2017 Right COLONOSCOPY 06/07/2022 cecal diverticulosis CERVICAL SPINE SURGERY 04/10/2024 Left L3-4 minimally invasive discectomy, Dr. Rose Medical History Medical History Date Comments Hyperlipidemia 09/18/2016 Prostate cancer ([facility] V24 , [facility] V28) 2010 had radical prostatectomy by Dr. Tsai Gastric reflux syndrome 09/18/2016 Carpal tunnel syndrome 02/27/2017 DX:Carpal tunnel syndrome; EMG 2016: mild on left, moderate-severe on right Carpal tunnel syndrome, bilateral 02/27/2017 DX:Carpal tunnel syndrome, bilateral; EMG 2016: moderate to severe on right, mild on left TB lung, latent 04/26/2020 Positive QuantiF KEMAR gold test March 2020 Last negative test was March 2018. Patient started on isoniazid and pyridoxine. He has appointment infectious disease to review the situation. Family History Medical History Relation Name Comments Arthritis Mother Relation Name Status Comments Mother Social History Tobacco Use Types Packs/Day Years Used Date Smoking Tobacco: Former Cigarettes Q uit: 09/18/2016 Smokeless Tobacco: Never Tobacco Cessation:Counseling Given: Not Answered Comments:Smokes hooka Alcohol Use Standard Drinks/Week Comments No 0 (1 standard drink = 0.6 oz pur e alcohol) Sex and Gender Information Value Date Recorded Sex Assigned at Male 04/09/2024 12:52 PM EST Legal Sex Male 3:21 PM EST Gender Identity Male 04/09/2024 12:52 PM EST Sexual Orientation Straight 04/09/2024 12 :52 PM EST Obstetrics History Last Filed Vital Signs Vital Sign Reading Time Taken Comments Blood Pressure 112/83 04/10/2024 12:23 PM EST Pulse 91 04/10/2024 12:23 PM EST Temperature 36.9 ??C (98.4 ??F) 04/10/2024 12:[address] Respiratory Rate 20 04/10/2024 12:23 PM EST Oxygen Saturation 95% 04/10/2024 12:23 PM EST Inhaled Oxygen Concentration - - Weight 74.8 kg (165 lb) 05/30/2024 2:30 PM EST Height 170.2 cm (5' 7 ) 05/30/2024 2:30 PM EST Body Mass Index 25.84 05/30/2024 2:30 PM EST Plan of Treatment Health Maintenance Due Date Last Done Comments Abdominal Aortic Aneurysm (AAA) Screen 05/06/2022 Depression Screening 05/06/2022 Falls Risk Assessment 05/06/2022 Social Influencers of Health Screening 05/06/2022 Medicare Annual Wellness Visit 12/08/2023 12/07/2022 COVID-19 Vaccine ( season) 2024 12/12/2021, 01/27/2021, 09/02/2020, Additional history exists Zoster Vaccines (3 of 3) 08/27/2024 07/02/2024, 11/25 Influenza Vaccine (Season Ended) 2025 03/07/2022, 03/23/2021, 04/12/2020, Additional history exists Hypertension/CHF/CAD Annual BMP Blood Test 07/21/2025 07/21/2024 Cholesterol Screening (Lipid Panel) 07/21/2029 07/21/2024 DTaP,Tdap,and Td Vaccines (2 - Td or Tdap) 07/02/2034 07/02/2024 Colorectal Cancer Screening: Colonoscopy 07/24/2034 07/24/2024, 06/07/2022 Hepatitis C Screening Completed 04/12/2020 RSV Immunization Adult Patients Completed 06/18/2023 Pneumococcal Vaccine: 50+ Years Completed 02/04/2024, 12/09/2021 HIB Vaccines Aged Out No longer eligi ble based on patient's age to complete this topic HPV Vaccines Aged Out No longer eligi ble based on patient's age to complete this topic Hepatitis A Vaccines Aged Out No long er eligible based on patient's age to complete this topic Hepatitis B Vaccines Aged Out No long er eligible based on patient's age to complete this topic IPV Vaccines Aged Out No longer eligi ble based on patient's age to complete this topic MMR Vaccines Aged Out No longer eligi ble based on patient's age to complete this topic Meningococcal ACWY Vaccine Aged Out N o longer eligible based on patient's age to complete this topic Meningococcal B Vaccine Aged Out No l onger eligible based on patient's age to complete this topic RSV Immunization Patients Under 20 months Aged Out No longer eligible based on patient's age to complete this topic Varicella Vaccines Aged Out No longer eligible based on patient's age to complete this topic Medical Devices Implanted Type Area Recreation Clerk Device Identifier Shelf Expiration Date Model / Serial / Lot Powder Surgifoam Absorb Gel - [id number] - [id number] Implanted:Qty: 1 on 04/10/2024 by Vickie Rose MD at [facility] [employer] Left: Back [facility] [employer] [id number] 10/29/20251977 / / [id number] Description:MIXED W/10,000UX THROMBIN Procedures Procedure Name Priority Date/Time Associated Diagnosis Comments XR ESOPHAGRAM Routine 08/12/2024 8:46 AM EDT Dysphagia, unspecified type EXTERNAL COLONOSCOPY REPORT Routine 07/24/2024 10:36 AM EST [place] URINE CULTURE TUBE Routine 07/21/2024 11:40 AM EST Diabetes mellitus screening Avitaminosis D Adult general medical exam Encounter for screening for endocrine disorder Encounter for screening for lipoid disorders Prediabetes Drug therapy EXTRA TUBES Routine 07/21/2024 11:40 AM EST Diabetes mellitus screening Avitaminosis D Adult general medical exam Encounter for screening for endocrine disorder Encounter for screening for lipoid disorders Prediabetes Drug therapy URINALYSIS WITH REFLEX MICROSCOPIC Routine 07/21/2024 11:40 AM EST Diabetes mellitus screening Avitaminosis D Adult general medical exam Encounter for screening for endocrine disorder Encounter for screening for lipoid disorders URINALYSIS WITH REFLEX MICROSCOPIC Routine 07/21/2024 11:40 AM EST Diabetes mellitus screening Avitaminosis D Adult general medical exam Encounter for screening for endocrine disorder Encounter for screening for lipoid disorders CBC WITH AUTO DIFFERENTIAL Routine 07/21/2024 11:34 AM EST Diabetes mellitus screening Avitaminosis D Adult general medical exam Encounter for screening for endocrine disorder Encounter for screening for lipoid disorders LIPID PANEL WITH REFLEX TO DIRECT LDL Routine 07/21/2024 11:34 AM EST Diabetes mellitus screening Avitaminosis D Adult general medical exam Encounter for screening for endocrine disorder Encounter for screening for lipoid disorders Drug therapy THYROID STIMULATING HORMONE Routine 07/21/2024 11:34 AM EST Diabetes mellitus screening Avitaminosis D Adult general medical exam Encounter for screening for endocrine disorder Encounter for screening for lipoid disorders Prediabetes CBC AND DIFFERENTIAL Routine 07/21/2024 11:34 AM EST Diabetes mellitus screening Avitaminosis D Adult general medical exam Encounter for screening for endocrine disorder Encounter for screening for lipoid disorders COMPREHENSIVE METABOLIC PANEL Routine 07/21/2024 11:34 AM EST Diabetes mellitus screening Avitaminosis D Adult general medical exam Encounter for screening for endocrine disorder Encounter for screening for lipoid disorders VITAMIN D 25 HYDROXY Routine 07/21/2024 11:34 AM EST Diabetes mellitus screening Avitaminosis D Adult general medical exam Encounter for screening for endocrine disorder Encounter for screening for lipoid disorders HEMOGLOBIN A1C Routine 07/21/2024 11:34 AM EST Diabetes mellitus screening Avitaminosis D Adult general medical exam Encounter for screening for endocrine disorder Encounter for screening for lipoid disorders HM HEPATITIS C SCREENING Routine 04/12/2020 from Last 3 Months or Most Recently Relevant to Health Maintenance Results * XR Esophagram (08/12/2024 8:46 AM EDT) Anatomical Region Laterality Modality Head and Neck Radiographic Hyun ging 08/12/2024 10:1 4 AM EDT Impressions 08/12/2024 10:32 AM EDT Moderate esophageal dysmotility, otherwise normal double contrast esophagram exam. -------- FINAL REPORT -------- Dictated By: Sabine White Dictated Date: 08/12/2024 10:14 ET Assigned Physician: Ravin Garza Reviewed and Electronically Signed By: Ravin Garza Signed Date: 08/12/2024 10:32 ET Workstation ID: [id number] Transcribed By: Self Edit Transcribed Date: 08/12/2024 10:22 ET Resident/PA/ICE CREAM SERVER: Sabine White Narrative 08/12/2024 10:32 AM EDT FINDINGS: Double contrast esophagram performed. COMPARISON: No prior esophagram imaging HISTORY: Patient is a 69-year-old male with history of dysphagia for 3 to 4 months. Quality Control Director radiographs: 1 view chest radiograph demonstrates cardiac and mediastinal contours within normal limits. Lungs are clear bilaterally. Costophrenic angles are sharp. Aortic knob is calcified. Moderate bony degenerative changes of the thoracolumbar spine. 1 view lateral soft tissue neck demonstrates no prevertebral soft tissue masses. Airway is widely patent. Mild bony degenerative changes of the cervical spine. Effervescent crystals were administered orally. Thick and thin barium were administered orally under fluoroscopic control. Pharyngoesophagram: Rapid sequence imaging of the hypopharynx during swallowing demonstrates prompt initiation of swallowing. There is normal soft palate elevation and normal epiglottic motion. There is no laryngeal penetration or lori aspiration. There is no residual in the vallecula nor in the piriform sinuses. Thoracic esophagus: There is moderate esophageal dysmotility as demonstrated by break in the primary peristaltic stripping wave and tertiary contractions visualized. Normal distensibility and mucosal pattern without evidence of ulceration, stricture or mass formation. Hiatal hernia: None Reflux: Unable to elicit 13mm Barium pill: Swallowed without difficulty. Prompt passage of pill from the esophagus into the stomach. DAP: 5.16 Gycm^2 Procedure Note Ravin Garza MD - 08/12/2024 FINDINGS: Double contrast esophagram performed. COMPARISON: No prior esophagram imaging HISTORY: Patient is a 69-year-old male with history of dysphagia for 3 to4 months. Quality Control Director radiographs: 1 view chest radiograph demonstrates cardiac andmediastinal contours within normal limits. Lungs are clear bilaterally.Costophrenic angles are sharp. Aortic knob is calcified. Moderate bonydegenerative changes of the thoracolumbar spine. 1 view lateral softtissue neck demonstrates no prevertebral soft tissue masses. Airway iswidely patent. Mild bony degenerative changes of the cervical spine. Effervescent crystals were administered orally. Thick and thin barium wereadministered orally under fluoroscopic control. Pharyngoesophagram: Rapid sequence imaging of the hypopharynx duringswallowing demonstrates prompt initiation of swallowing. There is normalsoft palate elevation and normal epiglottic motion. There is no laryngealpenetration or lori aspiration. There is no residual in the vallecula norin the piriform sinuses. Thoracic esophagus: There is moderate esophageal dysmotility asdemonstrated by break in the primary peristaltic stripping wave andtertiary contractions visualized. Normal distensibility and mucosalpattern without evidence of ulceration, stricture or mass formation. Hiatal hernia: None Reflux: Unable to elicit 13mm Barium pill: Swallowed without difficulty. Prompt passage of pillfrom the esophagus into the stomach. DAP: 5.16 Gycm^2 IMPRESSION: Moderate esophageal dysmotility, otherwise normal double contrastesophagram exam. -------- FINAL REPORT -------- Dictated By: Sabine White Dictated Date: 08/12/2024 10:14 ET Assigned Physician: Ravin Garza Reviewed and Electronically Signed By: Ravin Garza Signed Date: 08/12/2024 10:32 ET Workstation ID: [id number] Transcribed By: Self Edit Transcribed Date: 08/12/2024 10:22 ET Resident/PA/ICE CREAM SERVER: Sabine White Joe Uriarte NP IMG FLUOROSCOPY PROCEDURES Fi nal Result * External Colonoscopy Report (07/24/2024 10:36 AM EST) Anatomical Region Laterality Modality Endoscopy Historical Provider GI~PROCEDURE ORDERABLES F inal Result * Urinalysis with reflex microscopic (07/21/2024 11:40 AM EST) Specific [place] Urine 1.015 1.003 - 1.030 LAB URINALYSIS - AUTOMATED METHOD 07/21/2024 12:57 PM [facility] pH, Urine 5.5 5.0 - 8.0 pH LAB URINALYSIS - AUTOMATED METHOD 07/21/2024 12:57 PM [facility] Leukocytes, Urine Negative Negative LAB URINALYSIS - AUTOMATED METHOD 07/21/2024 12:57 PM [facility] Nitrite, Urine Negative Negative LAB URINALYSIS - AUTOMATED METHOD 07/21/2024 12:57 PM [facility] Protein, Urine Negative <=Trace mg/dL LAB URINALYSIS - AUTOMATED METHOD 07/21/2024 12:57 PM [facility] Glucose, Urine Negative Negative mg/dL LAB URINALYSIS - AUTOMATED METHOD 07/21/2024 12:57 PM [facility] Ketones, Urine Negative Negative mg/dL LAB URINALYSIS - AUTOMATED METHOD 07/21/2024 12:57 PM [facility] Urobilinogen, Urine 1.0 0.2 - 1.0 mg/dL LAB URINALYSIS - AUTOMATED METHOD 07/21/2024 12:57 PM [facility] Bilirubin, Urine Negative Negative LAB URINALYSIS - AUTOMATED METHOD 07/21/2024 12:57 PM [facility] Blood, Urine Negative Negative LAB URINALYSIS - AUTOMATED METHOD 07/21/2024 12:57 PM [facility] Urine Urine specimen obtained by clean catch procedure / Unknown Non-blood Collection / Unknown 07/21/2024 11:40 AM EST 07/21/2024 12:42 PM EST Joe Uriarte ICE CREAM SERVER LAB URINE ORDERABLES Final Re sult Performing Organization Address [facility]/ZIP Co de Phone Number [facility] [address] [place] [address], [place] [phone] * [place] urine culture tube (07/21/2024 11:40 AM EST) Extra Tube Hold for add-ons. 07/21/2024 2:01 PM [facility] Comment:Auto resulted. Urine Urine specimen obtained by clean catch procedure / Unknown 07/21/2024 11:40 AM EST 07/21/2024 12:46 PM EST Joe Uriarte ICE CREAM SERVER LAB URINE ORDERABLES Final Re sult Performing Organization Address City/[facility]/ZIP Co de Phone Number [facility] [address] [place] [address], [place] [phone] * (ABNORMAL) Lipid panel with reflex to direct LDL (07/21/2024 11:34 AM EST) Cholesterol 120 0 - 200 mg/dL LAB CHEMISTRY METHOD 07/21/2024 2:03 PM EST [facility] Triglycerides 174(H) 0 - 150 mg/dL LAB CHEMISTRY METHOD 07/21/2024 2:03 PM [facility] HDL 40 >=40 mg/dL LAB CHEMISTRY METHOD 07/21/2024 2:03 PM [facility] LDL Calculated 45 0 - 100 mg/dL LAB CHEMISTRY METHOD 07/21/2024 2:03 PM [facility] VLDL Cholesterol Socrates 34.8 mg/dL LAB CHEMISTRY METHOD 07/21/2024 2:03 PM [facility] Non HDL Chol. (LDL+VLDL) 80 <145 mg/dL LAB CHEMISTRY METHOD 07/21/2024 2:03 PM [facility] Chol/HDL Ratio 3.0 0.0 - 4.4 LAB CHEMISTRY METHOD 07/21/2024 2:03 PM [facility] Blood Venous blood specimen / Unknown Venipuncture / Unknown 07/21/2024 11:34 AM EST 07/21/2024 12:40 PM EST us Joe Uriarte ICE CREAM SERVER LAB BLOOD ORDERABLES Final Re sult [facility] [address] [place] [address], * (ABNORMAL) CBC auto differential (07/21/2024 11:34 AM EST) WBC 5.2 4.8 - 10.8 K/mcL LAB HEMETOLOGY METHOD 07/21/2024 1:09 PM [facility] RBC 5.00 4.50 - 5.50 M/mcL LAB HEMETOLOGY METHOD 07/21/2024 1:09 PM [facility] Hemoglobin 16.0 13.5 - 17.5 g/dL LAB HEMETOLOGY METHOD 07/21/2024 1:09 PM [facility] Hematocrit 46.9 42.0 - 54.0 % LAB HEMETOLOGY METHOD 07/21/2024 1:09 PM [facility] MCV 94.4 79.0 - 98.0 FL LAB HEMETOLOGY METHOD 07/21/2024 1:09 PM [facility] MCH 32.2(H) 27.0 - 32.0 pcg LAB HEMETOLOGY METHOD 07/21/2024 1:09 PM [facility] MCHC 34.1 32.0 - 37.0 g/dL LAB HEMETOLOGY METHOD 07/21/2024 1:09 PM [facility] RDW 13.4 11.0 - 15.0 % LAB HEMETOLOGY METHOD 07/21/2024 1:09 PM [facility] Platelets 153 130 - 400 K/mcL LAB HEMETOLOGY METHOD 07/21/2024 1:09 PM [facility] MPV 12.2(H) 7.0 - 11.0 FL LAB HEMETOLOGY METHOD 07/21/2024 1:09 PM [facility] NRBC 0.0 <1.0 % LAB HEMETOLOGY METHOD 07/21/2024 1:09 PM [facility] NRBC Absolute 0.00 <0.10 K/mcL LAB HEMETOLOGY METHOD 07/21/2024 1:09 PM [facility] Neutrophils Relative 67.2 % LAB HEMETOLOGY METHOD 07/21/2024 1:09 PM [facility] Lymphocytes Relative 19.6 % LAB HEMETOLOGY METHOD 07/21/2024 1:09 PM [facility] Monocytes Relative 8.5 % LAB HEMETOLOGY METHOD 07/21/2024 1:09 PM [facility] Eosinophils Relative 3.7 % LAB HEMETOLOGY METHOD 07/21/2024 1:09 PM [facility] Basophils Relative 0.4 % LAB HEMETOLOGY METHOD 07/21/2024 1:09 PM [facility] Immature Granulocytes Relative 0.6 % LAB HEMETOLOGY METHOD 07/21/2024 1:09 PM [facility] Neutrophils Absolute 3.50 1.50 - 7.00 K/mcL LAB HEMETOLOGY METHOD 07/21/2024 1:09 PM [facility] Lymphocytes Absolute 1.02 1.00 - 5.00 K/mcL LAB HEMETOLOGY METHOD 07/21/2024 1:09 PM [facility] Monocytes Absolute 0.44 0.20 - 1.00 K/mcL LAB HEMETOLOGY METHOD 07/21/2024 1:09 PM [facility] Eosinophils Absolute 0.19 0.00 - 0.50 K/mcL LAB HEMETOLOGY METHOD 07/21/2024 1:09 PM [facility] Basophils Absolute 0.02 0.00 - 0.20 K/mcL LAB HEMETOLOGY METHOD 07/21/2024 1:09 PM [facility] Immature Granulocytes Absolute 0.03 0.00 - 0.03 K/mcL LAB HEMETOLOGY METHOD 07/21/2024 1:09 PM [facility] Blood Venous blood specimen / Unknown Venipuncture / Unknown 07/21/2024 11:34 AM EST 07/21/2024 12:42 PM EST us Joe Uriarte NP LAB BLOOD ORDERABLES Final Re sult [facility] [address] [place] [address], * (ABNORMAL) Vitamin D 25 hydroxy (07/21/2024 11:34 AM EST) Vit D, 25-Hydroxy 23.2(L) 30.0 - 80.0 ng/mL LAB CHEMISTRY METHOD 07/21/2024 1:58 PM EST [facility] Blood Venous blood specimen / Unknown Venipuncture / Unknown 07/21/2024 11:34 AM EST 07/21/2024 12:40 PM EST us Joe Uriarte NP LAB BLOOD ORDERABLES Final Re sult Performing Organization Address City/[facility]/ZIP Co de Phone Number [facility] [address] [place] [address], [place] [phone] * Thyroid stimulating hormone (07/21/2024 11:34 AM EST) Pathologist [facility] TSH 1.09 0.40 - 4.00 mcIU/mL LAB CHEMISTRY METHOD 07/21/2024 1:58 PM EST [facility] Blood Venous blood specimen / Unknown Venipuncture / Unknown 07/21/2024 11:34 AM EST 07/21/2024 12:40 PM EST us Joe Uriarte NP LAB BLOOD ORDERABLES Final Re sult Performing Organization Address [facility]/ZIP Co de Phone Number [facility] [address] [place] [address], [place] [phone] * Hemoglobin A1c (07/21/2024 11:34 AM EST) Hemoglobin A1C 5.7 <6.5 % LAB CHEMISTRY METHOD 07/21/2024 6:03 PM EST [facility] Mean Bld Glu Estim. 117 mg/dL LAB CHEMISTRY METHOD 07/21/2024 6:03 PM EST [facility] Blood Venous blood specimen / Unknown Venipuncture / Unknown 07/21/2024 11:34 AM EST 07/21/2024 12:42 PM EST us Joe Uriarte [employer] LAB BLOOD ORDERABLES Final Re sult [facility] [address] [place] [address], [place] [phone] * (ABNORMAL) Comprehensive metabolic panel (07/21/2024 11:34 AM EST) Sodium 139 133 - 145 mmol/L LAB CHEMISTRY METHOD 07/21/2024 2:03 PM [facility] Potassium 4.2 3.5 - 5.5 mmol/L LAB CHEMISTRY METHOD 07/21/2024 2:03 PM [facility] Chloride 108 96 - 110 mmol/L LAB CHEMISTRY METHOD 07/21/2024 2:03 PM [facility] CO2 23 21 - 32 mmol/L LAB CHEMISTRY METHOD 07/21/2024 2:03 PM [facility] Anion Gap 8 3 - 11 LAB CHEMISTRY METHOD 07/21/2024 2:03 PM [facility] Glucose 104(H) 70 - 100 mg/dL LAB CHEMISTRY METHOD 07/21/2024 2:03 PM [facility] BUN 14 5 - 25 mg/dL LAB CHEMISTRY METHOD 07/21/2024 2:03 PM [facility] Creatinine 0.77 0.70 - 1.30 mg/dL LAB CHEMISTRY METHOD 07/21/2024 2:03 PM [facility] eGFR 96 >=60 mL/min/1. 73m2 LAB CHEMISTRY METHOD 07/21/2024 2:03 PM [facility] Comment:Calculation based on the??Chronic Kidney Disease Epidemiology Collaboration (CKD-EPI) equation refit??without adjustment for race. BUN/Creatinine Ratio 18.2 LAB CHEMISTRY METHOD 07/21/2024 2:03 PM [facility] Calcium 9.4 8.5 - 10.5 mg/dL LAB CHEMISTRY METHOD 07/21/2024 2:03 PM [facility] AST (SGOT) 24 10 - 42 unit/L LAB CHEMISTRY METHOD 07/21/2024 2:03 PM [facility] ALT (SGPT) 35 10 - 60 unit/L LAB CHEMISTRY METHOD 07/21/2024 2:03 PM [facility] Alkaline Phosphatase 82 42 - 121 unit/L LAB CHEMISTRY METHOD 07/21/2024 2:03 PM [facility] Total Protein 7.2 6.0 - 8.0 g/dL LAB CHEMISTRY METHOD 07/21/2024 2:03 PM [facility] Albumin 3.8 3.2 - 5.0 g/dL LAB CHEMISTRY METHOD 07/21/2024 2:03 PM [facility] Total Bilirubin 0.6 0.0 - 1.4 mg/dL LAB CHEMISTRY METHOD 07/21/2024 2:03 PM [facility] Blood Venous blood specimen / Unknown Venipuncture / Unknown 07/21/2024 11:34 AM EST 07/21/2024 12:40 PM EST Joe Uriarte NP LAB BLOOD ORDERABLES Final Re sult [facility] [address] [place] [address], * Hepatitis C Screening (04/12/2020) Hepatitis C Screening Abstracted Historical Provider HEALTH MAINTENANCE Final Result from Last 3 Months or Most Recently Relevant to Health Maintenance Insurance MEDICARE MEDICAID - [place] Advance Directives * Full Code - Default (Latest Code Status on File) Date Activated Date Inactivated Comments 04/10/2024 6:25 AM 04/10/2024 3:25 PM This is or rika is used when code status has not been discussed with the patient, or code status is otherwise unknown/unconfirmed To update the patient's code status, place a code status order. Do not modify or discontinue any currently active code status orders. * Full Code - Default Date Activated Date Inactivated Comments 04/10/2024 6:25 AM 04/10/2024 6:25 AM This is or rika is used when code status has not been discussed with the patient, or code status is otherwise unknown/unconfirmed To update the patient's code status, place a code status order. Do not modify or discontinue any currently active code status orders. Care Teams It Trainee Relationship Specialty Start Date End Date Joe Uriarte NP [address] [address] PCP - General Nurse Practitioner 08/08/24
--- OUTSIDE RECORDS SUMMARY | 2024-10-02 16:03 | XMS_ITS | Patient Health Record ---
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 accuracy Inadvertent stone operator errors may occur 03/27/2024 Osteoporosis without current pathological fracture, unspecified osteoporosis type (ICD-10 - M81.0) Status post L3-L4 microdiscectomy with excellent results Continue with supportive care and pain medications RA, chronically managed by rheumatology getting monthly infusions Otherwise chronic conditions are stable Labs reviewed MOLST/HCP Discussed and Filed Of note, some information is being carried forward from prior records for informational purposes only and is being cited so that efficiency, safety and quality of the patient's care is not compromised This note was prepared using voice recognition software and direct typing Please excuse inadvertent stone operator or typing errors, or uncorrected word substitutions Although every attempt has been made by the provider to proofread this document, occasional misspellings and typographical errors may still be present Due to the previous pandemic, and the use of personal protective equipment (PPE) This may decrease voice recognition accuracy Inadvertent stone operator errors may occur 01/22/2024 Generalized osteoarthritis (ICD-10 [...] cardiovascular event (Coronary or stroke or nonfatal PA or stroke) In the next 10 years [...] software and direct typing Please excuse inadvertent stone operator or typing errors, or uncorrected word substitutions Although every attempt has been made by the provider to proofread this document, occasional misspellings and typographical errors may still be present Due to the previous pandemic, and the use of personal protective equipment (PPE) This may decrease voice recognition accuracy Inadvertent stone operator errors may occur 03/27/2024 Essential (primary) hypertension (ICD-10 - I10) Status post L3-L4 microdiscectomy with excellent results Continue with supportive care and pain medications RA, chronically managed by rheumatology getting monthly infusions Otherwise chronic conditions are stable Labs reviewed MOLST/HCP Discussed and Filed Of note, some information is being carried forward from prior records for informational purposes only and is being cited so that efficiency, safety and quality of the patient's care is not compromised This note was prepared using voice recognition software and direct typing Please excuse inadvertent stone operator or typing errors, or uncorrected word substitutions Although every attempt has been made by the provider to proofread this document, occasional misspellings and typographical errors may still be present Due to the previous pandemic, and the use of personal protective equipment (PPE) This may decrease voice recognition accuracy Inadvertent stone operator errors may occur PLAN OF TREATMENT Pending Test Test Name Order Date Barium Swallow 06/16/2024 X ray : Spines, lumbar 01/03/2024 25OH [...] Abdomen Complete 03/17/2024 LIPID PANEL, STANDARD 10/18/2021 LIPID PANEL, STANDARD 07/21/2024 MICROALBUMIN, RANDOM URINE (W/CREATININE ) 10/18/2021 COMPREHENSIVE METABOLIC PANEL 10/18/2021 COMPREHENSIVE METABOLIC PANEL 07/21/2024 CBC (INCLUDES DIFF/PLT) 07/21/2024 CBC (INCLUDES DIFF/PLT) 10/18/2021 URINALYSIS, COMPLETE 10/18/2021 URINALYSIS, COMPLETE 07/21/2024 HEMOGLOBIN A1c 07/21/2024 HEMOGLOBIN A1c 10/18/2021 T4, FREE 10/18/2021 TSH 10/18/2021 TSH 07/21/2024 VITAMIN D,25-OH,TOTAL,IA 07/21/2024 VITAMIN D,25-OH,TOTAL,IA 10/18/2021 CT Low Dose Lung Screening 12/05/2021 Future Test Test Name Order Date HEMOGLOBIN A1C 03/07/2022 LIPID PANEL 03/07/2022 25OH VITAMIN D 12/07/2022 CBC (COMPLETE BLOOD COUNT) WITH DIFF COMPREHENSIVE METABOLIC PANEL 12/07/2022 HEMOGLOBIN A1C 12/07/2022 LIPID PANEL 12/07/2022 MICROALBUMIN, URINE 12/07/2022 TSH WITH REFLEX TO FT4 12/07/2022 URINALYSIS W/REFLEX CULTURE 12/07/2022 Next Appt Details Provider Name:GLENN KINGSLEY, 10/17/2024 10:30:00 AM, [address] [place] [address], [facility] [address], [place], [address], Insurance Providers Payer Name Payer Address Payer Phone Subscriber Number Group Number Insured Name Patient Relationship to Insured Coverage Start Date Coverage End Date Medicare Part B [id number] [address] [place] [id number] Garrett Cortez Self - patient is the insured [employer] [place] [address] [place] [address] [id number] Garrett Cortez Self - patient is the insured MEDICAL (GENERAL) HISTORY Medical History History ICD Code hyperlipidemia prostate cancer hemorrhoids Arthritis rheumatoid arthritis gastroesophageal reflux disease (GERD) Surgical History Surgery Date(Month/Year) Prostate Surgery Inguinal Hernia surgery Hemorrhoidectomy Heart Ablation
== END 2024-10-02 16:30 | disposition home or self-care (01) ==
LOC: HO.RHE 15:32
PROVIDERS: PCP Internal Medicine Rheumatology; Visit Provider Student in an Organized Health Care Education/Training Program
DX: M06.09 Rheumatoid arthritis without rheumatoid factor, multiple sites (principal); Z79.60 Long term (current) use of unspecified immunomodulators and immunosuppressants; Z22.7 Latent tuberculosis; M79.7 Fibromyalgia; Z51.81 Encounter for therapeutic drug level monitoring; Z79.631 Long term (current) use of antimetabolite agent
CPT/HCPCS: 99214; G2211

== ENCOUNTER → 2024-10-02 15:31 | Outpatient (BNVA) | payer MEDICARE, MEDICAID, SELFPAY | PROVIDERS: PCP Internal Medicine Rheumatology; Visit Provider Student in an Organized Health Care Education/Training Program | DX: M06.09 Rheumatoid arthritis without rheumatoid factor, multiple sites (principal); M79.7 Fibromyalgia; Z22.7 Latent tuberculosis; Z51.81 Encounter for therapeutic drug level monitoring; Z79.60 Long term (current) use of unspecified immunomodulators and immunosuppressants; Z79.631 Long term (current) use of antimetabolite agent | CPT/HCPCS: 99212 ==

== ENCOUNTER 2025-01-23 12:14 | Outpatient (REF) | payer MEDICARE, MEDICAID, SELFPAY ==
--- OUTSIDE RECORDS SUMMARY | 2024-10-17 06:30 | XMS_ITS ---
Author Organization [facility] [address] Address [address] [place] [address] Care Team Providers Care Utility Worker Name Role Phone GLENN KINGSLEY Unavailable [phone] Medications Medication SIG (Take, Route, Frequency, Duration) Notes Start Date End Date Status Azithromycin 500 MG 1 tablet Orally Once a day; Duration: 5 days 09/10/2024 Active Methotrexate Sodium 2.5 MG TAKE 8 TABLET S BY MOUTH ONCE WEEKLY (75 DAYS); Duration: 75 days Active valACYclovir HCl 1 GM 1 tablet Orally th ree times a day; Duration: 7 days Active Zovirax 5 % 1 application to aff ected area Externally Five times a day; Duration: 4 days 09/21/2024 Active Acyclovir 5 % 1 application [facility] ally Five times a day; Duration: 4 day(s) 09/24/2024 Active HYDROmorphone HCl 4 MG 1/2 to 1 tablet a s needed severe pain Orally every 6 hrs; Duration: 10 days 04/14/2024 Active Atorvastatin Calcium 40 MG TAKE 1 TABLET BY MOUTH EVERY DAY; Duration: 90 Active Ibuprofen 800 MG TAKE 1 TABLET BY [facility] EVERY 8 HOURS WITH FOOD OR MILK NEEDED; Duration: 30 Active Docusate Sodium 100 MG 1 capsule as need ed Orally three times a day; Duration: 30 days 04/14/2024 Active Tadalafil 20 MG TAKE 1 TABLET 30 MIN UTES BEFORE SEXUAL ACTIVITY ONCE A DAY; Duration: 30 Active CoQ-10 100 MG 100mg Orally twice a day; Duration: 90 days 09/06/2023 Active Folic Acid 1 MG TAKE 1 TABLET BY [facility] EVERY DAY FOR 90 DAYS; Duration: 90 Active Meloxicam 15 MG TAKE 1 TABLET BY [facility] EVERY DAY; Duration: 90 Active Omeprazole 40 MG TAKE 1 CAPSULE BY [facility] EVERY DAY 30 MINUTES BEFORE MORNING MEAL; Duration: 90 Active Mounjaro 10 MG/0.5ML 10mg Subcutaneous w maxine; Duration: 30 days 10/25/2023 Active Vitamin B-6 50 MG TAKE 1 TABLET BY [facility] EVERY DAY Oral; Duration: 90 Active Atorvastatin Calcium 80 MG 1 tablet Oral ly Once a day; Duration: 90 days 12/05/2021 Active Xeljanz 5 MG Oral; Duration: 30 Active Methotrexate 2.5 MG TAKE 8 TABLETS BY [facility] ONCE WEEKLY; Duration: 75 Active Loperamide HCl 2 MG 1 capsule as needed for diarrhea Orally Four times a day; Duration: 5 days 07/08/2023 Active Encounters Encounter Location Date Provider Diagnosis [facility] [address] [place] [id number] 10/17/2024 GLENN KINGSLEY Rheumatoid arthritis without rheumatoid factor, right hand [...] current pathological fracture, unspecified osteoporosis type M81.0 Assessments Encounter Date Diagnosis (ICD Code) Assessment Notes Treatment Notes Treatment Clinical Notes Section Notes 10/17/2024 Rheumatoid arthritis without rheumatoid factor, right hand (ICD-10 - M06.041) Acute Concerns/Problem List: 10/17/2024 Lets update some comprehensive labs Status post [...] software and direct typing Please excuse inadvertent risk control product liability director or typing errors, or uncorrected word substitutions Although every attempt has been made by the provider to proofread this document, occasional misspellings and typographical errors may still be present Due to the previous pandemic, and the use of personal protective equipment (PPE) This may decrease voice recognition accuracy Inadvertent risk control product liability director errors may occur 10/17/2024 Essential (primary) hypertension (ICD-10 - I10) Acute Concerns/Problem List: 10/17/2024 Lets update some comprehensive labs Status post [...] software and direct typing Please excuse inadvertent risk control product liability director or typing errors, or uncorrected word substitutions Although every attempt has been made by the provider to proofread this document, occasional misspellings and typographical errors may still be present Due to the previous pandemic, and the use of personal protective equipment (PPE) This may decrease voice recognition accuracy Inadvertent risk control product liability director errors may occur 10/17/2024 Rheumatoid arthritis without rheumatoid factor, left hand (ICD-10 - M06.042) Acute Concerns/Problem List: 10/17/2024 Lets update some comprehensive labs Status post [...] software and direct typing Please excuse inadvertent risk control product liability director or typing errors, or uncorrected word substitutions Although every attempt has been made by the provider to proofread this document, occasional misspellings and typographical errors may still be present Due to the previous pandemic, and the use of personal protective equipment (PPE) This may decrease voice recognition accuracy Inadvertent risk control product liability director errors may occur 10/17/2024 Rheumatoid arthritis without rheumatoid factor, right knee (ICD-10 - M06.061) Acute Concerns/Problem List: 10/17/2024 Lets update some comprehensive labs Status post [...] software and direct typing Please excuse inadvertent risk control product liability director or typing errors, or uncorrected word substitutions Although every attempt has been made by the provider to proofread this document, occasional misspellings and typographical errors may still be present Due to the previous pandemic, and the use of personal protective equipment (PPE) This may decrease voice recognition accuracy Inadvertent risk control product liability director errors may occur 10/17/2024 Rheumatoid arthritis without rheumatoid factor, left knee (ICD-10 - M06.062) Acute Concerns/Problem List: 10/17/2024 Lets update some comprehensive labs Status post [...] software and direct typing Please excuse inadvertent risk control product liability director or typing errors, or uncorrected word substitutions Although every attempt has been made by the provider to proofread this document, occasional misspellings and typographical errors may still be present Due to the previous pandemic, and the use of personal protective equipment (PPE) This may decrease voice recognition accuracy Inadvertent risk control product liability director errors may occur 10/17/2024 Hx of prostatic malignancy (ICD-10 - Z85.46) Acute Concerns/Problem List: 10/17/2024 Lets update some comprehensive labs Status post [...] software and direct typing Please excuse inadvertent risk control product liability director or typing errors, or uncorrected word substitutions Although every attempt has been made by the provider to proofread this document, occasional misspellings and typographical errors may still be present Due to the previous pandemic, and the use of personal protective equipment (PPE) This may decrease voice recognition accuracy Inadvertent risk control product liability director errors may occur 10/17/2024 S/P TURP (status post transurethral resection of prostate) (ICD-10 - Z90.79) Acute Concerns/Problem List: 10/17/2024 Lets update some comprehensive labs Status post [...] software and direct typing Please excuse inadvertent risk control product liability director or typing errors, or uncorrected word substitutions Although every attempt has been made by the provider to proofread this document, occasional misspellings and typographical errors may still be present Due to the previous pandemic, and the use of personal protective equipment (PPE) This may decrease voice recognition accuracy Inadvertent risk control product liability director errors may occur 10/17/2024 Prediabetes (ICD-10 - R73.03) Acute Concerns/Problem List: 10/17/2024 Lets update some comprehensive labs Status post [...] software and direct typing Please excuse inadvertent risk control product liability director or typing errors, or uncorrected word substitutions Although every attempt has been made by the provider to proofread this document, occasional misspellings and typographical errors may still be present Due to the previous pandemic, and the use of personal protective equipment (PPE) This may decrease voice recognition accuracy Inadvertent risk control product liability director errors may occur 10/17/2024 Erectile dysfunction following simple prostatectomy (ICD-10 - N52.34) Acute Concerns/Problem List: 10/17/2024 Lets update some comprehensive labs Status post [...] software and direct typing Please excuse inadvertent risk control product liability director or typing errors, or uncorrected word substitutions Although every attempt has been made by the provider to proofread this document, occasional misspellings and typographical errors may still be present Due to the previous pandemic, and the use of personal protective equipment (PPE) This may decrease voice recognition accuracy Inadvertent risk control product liability director errors may occur 10/17/2024 Osteoporosis without current pathological fracture, unspecified osteoporosis type (ICD-10 - M81.0) Acute Concerns/Problem List: 10/17/2024 Lets update some comprehensive labs Status post [...] software and direct typing Please excuse inadvertent risk control product liability director or typing errors, or uncorrected word substitutions Although every attempt has been made by the provider to proofread this document, occasional misspellings and typographical errors may still be present Due to the previous pandemic, and the use of personal protective equipment (PPE) This may decrease voice recognition accuracy Inadvertent risk control product liability director errors may occur Plan Of Treatment Medication Medication Name Sig Start Date Stop Date Notes valACYclovir HCl 1 GM 1 tablet Orally th ree times a day; Duration: 7 days Next Appt Details Provider Name:GLENN VALDEZDONIEh, 02/03/2025 09:30:00 AM, [address] [facility], [facility] [address], [place], [phone], Progress Notes * Fox CORTEZ:1955 (69 yo M)Acc No.[id number]:10/17/2024 Progress Notes Patient: Garrett PAUL Provider: Yady KINGSLEY NP :1955 A ge:69 Y S ex:Male Date:10/17/2024 Address:[address] [place], [place] [id number] Subjective: * Chief Complaints: * * HPI: C onstitutional: Patient is here for Chronic Disease Management follow-up visit Patient seen and examined. Full past medical history, social history, family history, allergies and current medications were reviewed and updated. Acute Concerns/Problem List: 10/17/2024 r ecent esophagram/barium swallow 07/2024 M oderate esophageal dysmotility, otherwise normal double contrast esophagram exam. Patient underwent successful left L3-L4 minimally invasive microdiscectomy on April 10, [address] Rose Since then he has had complete resolution of his radicular left leg pain denies any paresthesias and feels well His wound has healed well other Past medical history that includes hyperlipidemia, thrombocytopenia, prediabetes Seronegative rheumatoid arthritis (biologic infusions/methothrexate), on folic acid sup, Cymbalta, as well as OA, and fibromyalgia He was started on dual incretin given diabetic state and obesity BMI His diabetes And weight are stable on GLP/GIP therapy With Mounjaro 7.5 mg - tolerating it well He is now euglycemic, previously he was a prediabetic prior to dual incretin's had intra-articular injections to the right shoulder with steroids as well as bilateral knee gel innjections with rheumatology history of transurethral resection of the prostate/Prostate CA BPH, outflow obstruction/Obstructive uropathy, Osteoporosis on Alendronate Carpal tunnel syndrome, With recent surgery on his left hand still having difficulties and grasping, lifting heavy items, with associated arthralgias from his RA He continues to struggle with dressing himself Secondary to chronic pain, osteoarthritis, RA also having issues with ADLs and hygienic activities, Bending over and picking up items, getting in and out of bed as well as getting in and out of his car Issues with his bilateral upper extremities as well as lower extremities and knees particularly Going up stairs are becoming quite a challenge for him hx of Latent tuberculosis He has had stress testing and cardiac as well as echocardiogram back in 2010 for an episode of syncope hx of SVT, s/p ablation, @ [facility] ( ) There were no valvular abnormality or wall motion abnormality EF of about 60-65% [facility] followed by Urologist Eulalio followed by [employer] [facility] in [place] gettting infusions monthly (Simponi) Osteoporotic according to records, and on Alendronate, Rheum follows this Does have obstructive sleep apnea via sleep study, has not been initiated on auto CPAP yet Since the weight loss sleeping much better and likely will not need CPAP Health maintenance Flu 2023 at pharmacy Prevnar 20 at pharmacy Cscope: 05/2022, 10 yr surveilance, (Timleann) COVID MRNA x 5 Shingrix: x 2 RSV: UTD Comprehensive labs June 2024 CBC is mostly stable Total cholesterol 120, triglycerides 174, HDL 40, LDL 45 Vitamin D 23 TSH 1.09 Renal function electrolytes and LFTs are stable Hemoglobin A1c of 5.7 UA mostly unremarkable. * ROS: A ll Other Systems: Review of Systems (ROS) A ll others negative except those mentioned in HPI. * Medical History: * Medications: T aking valACYclovir HCl 1 GM Tablet 1 tablet Orally three times a day , Taking Xeljanz 5 MG Tablet Oral , Taking [...] 100mg Orally twice a day , Taking Folic Acid 1 MG Tablet [...] BEFORE SEXUAL ACTIVITY ONCE A DAY , Taking Methotrexate Sodium 2.5 MG Tablet TAKE 8 TABLETS BY MOUTH ONCE WEEKLY (75 DAYS) , Taking Azithromycin 500 MG Tablet 1 tablet Orally Once a day , Taking Zovirax 5 % Cream 1 application to affected area Externally Five times a day , Taking Acyclovir 5 % Cream 1 application Externally Five times a day Objective: * Vitals: * Examination: G eneral Examination: GENERAL APPEARANCE: A lert and oriented, well-developed and well-nourishedSome moderate discomfort. H EAD: n ormocephalic, atraumatic. E YES: p upils equal, round, reactive to light and accommodation. E ARS: n ormal. O RAL CAVITY: m ucosa moist. T HROAT: c lear. N CHYNA/THYROID: n chyna supple, limited range of motion, with flexion and extension, right lateral flexion and left lateral flexion right rotation and left rotation no cervical lymphadenopathy. S KIN: 1 .5 cm laceration to the left parietal scalp, 2 farideh present. H EART: n o murmurs, regular rate and rhythm, S1, S2 normal. L UNGS: c lear to auscultation bilaterally. A BDOMEN: n ormal, bowel sounds present, soft, nontender, nondistended. E XTREMITIES: R ight Hand Dominant Right hand, painful range of [...] extension, side bending, slightly diminished left patellar refelx. N EUROLOGIC: n onfocal, Bilateral hand grasps and motor strength are diminished, 3/5 sensory exam intact. Assessment: * Assessment: 1. E ssential (primary) hypertension - I10 (Primary) 2 . R heumatoid arthritis without rheumatoid factor, right hand - M06.041 3 . R heumatoid arthritis without rheumatoid factor, left hand - M06.042 4 . R heumatoid arthritis without rheumatoid factor, right knee - M06.061 5 . R heumatoid arthritis without rheumatoid factor, left knee - M06.062 6 . H x of prostatic malignancy - Z85.46 ? 7 . S /P TURP (status post transurethral resection of prostate) - Z90.79 8. P rediabetes - R73.03 9 . E rectile dysfunction following simple prostatectomy - N52.34 1 0. O steoporosis without current pathological fracture, unspecified osteoporosis type - M81.0 Acute Concerns/Problem List: 10/17/2024 Lets update some comprehensive labs Status post [...] software and direct typing Please excuse inadvertent risk control product liability director or typing errors, or uncorrected word substitutions Although every attempt has been made by the provider to proofread this document, occasional misspellings and typographical errors may still be present Due to the previous pandemic, and the use of personal protective equipment (PPE) This may decrease voice recognition accuracy Inadvertent risk control product liability director errors may occur Plan: * Treatment: * Procedure Codes: 9 9199 NO SHOW OFFICE VISIT * Images: Billing Information: * Visit Code: * Procedure Codes: 41777 NO SHOW OFFICE VISIT. Care Plan Details* * Electronic signature of YO KINGSLEY on 01/23/2025 at 12:55 PM EDT Sign off status: Pending * Provider: Yady KINGSLEY NP Date: 0 10/17/2024 Generated for Kimberly morocho/Jean/Luizitting on: 0 01/23/2025 12:55 PM EDT History and Physical Notes * HPI (History of Present Illness) Category Sub-Category Detail Notes Category Not es Constitutional Patient is here for Chronic Disease Management follow-up visit Patient seen and examined. Full past medical history, social history, family history, allergies and current medications were reviewed and updated. Acute Concerns/Problem List: 10/17/2024 recent esophagram/barium swallow 07/2024 Moderate esophageal dysmotility, otherwise normal double contrast esophagram exam. Patient underwent successful left L3-L4 minimally invasive microdiscectomy on April 10, [address] Rose Since then he has had complete resolution of his radicular left leg pain denies any paresthesias and feels well His wound has healed well other Past medical history that includes hyperlipidemia, thrombocytopenia, prediabetes Seronegative rheumatoid arthritis (biologic infusions/methothrexate), on folic acid sup, Cymbalta, as well as OA, and fibromyalgia He was started on dual incretin given diabetic state and obesity BMI His diabetes And weight are stable on GLP/GIP therapy With Mounjaro 7.5 mg - tolerating it well He is now euglycemic, previously he was a prediabetic prior to dual incretin's had intra-articular injections to the right shoulder with steroids as well as bilateral knee gel innjections with rheumatology history of transurethral resection of the prostate/Prostate CA BPH, outflow obstruction/Obstructive uropathy, Osteoporosis on Alendronate Carpal tunnel syndrome, With recent surgery on his left hand still having difficulties and grasping, lifting heavy items, with associated arthralgias from his RA He continues to struggle with dressing himself Secondary to chronic pain, osteoarthritis, RA also having issues with ADLs and hygienic activities, Bending over and picking up items, getting in and out of bed as well as getting in and out of his car Issues with his bilateral upper extremities as well as lower extremities and knees particularly Going up stairs are becoming quite a challenge for him hx of Latent tuberculosis He has had stress testing and cardiac as well as echocardiogram back in 2010 for an episode of syncope hx of SVT, s/p ablation, @ [facility] ( ) There were no valvular abnormality or wall motion abnormality EF of about 60-65% [facility] followed by Urologist Eulalio followed by [employer] [facility] in [place] gettting infusions monthly (Simponi) Osteoporotic according to records, and on Alendronate, Rheum follows this Does have obstructive sleep apnea via sleep study, has not been initiated on auto CPAP yet Since the weight loss sleeping much better and likely will not need CPAP Health maintenance Flu 2023 at pharmacy Prevnar 20 at pharmacy Cscope: 05/2022, 10 yr surveilance, (Timleann) COVID MRNA x 5 Shingrix: x 2 RSV: UTD Comprehensive labs June 2024 CBC is mostly stable Total cholesterol 120, triglycerides 174, HDL 40, LDL 45 Vitamin D 23 TSH 1.09 Renal function electrolytes and LFTs are stable Hemoglobin A1c of 5.7 UA mostly unremarkable Examination Category Sub-Category Detail Notes Category Not [...] scalp, 2 farideh present EXTREMITIES: Right Hand DominantR ight hand, painful range of motion at the third and fourth fingersMild tenderness at the second through fourth MCP joint without swellingThere is mild tenderness across the second through fourth flexor tendons without triggeringThere is some bony enlargement at the thumb IP and PIP joints without tendernessThere is no DIP joint swelling or tendernessThere is mild thenar atrophy or sensory lossLeft hand third and fourth finger, tenderness first MCP without swellingThere is tenderness along the second through fourth flexor tendons without triggeringThere is some mild nontender bony enlargement of the second third and fourth and fifth PIP jointsThere is tenderness at the fourth PIP joint without swellingThere is some slight thickening at the PIP joint and minimally tenderleft sided antalgic gaitlimited lumbar extension, side bending, slightly diminished left patellar refelx ORAL CAVITY: mucosa moist
[2025-01-23 12:48] LABS: MANUAL DIFF FLAG NO
--- OUTSIDE RECORDS SUMMARY | 2025-01-23 12:56 | XMS_ITS | Encounter Summary ---
Author Organization [facility] Address [address] [place] [address] Care Team Providers Care Ramp Boss Name Role Phone Amber Wood MD Primary Care Provider Joe Nails CORE MOUNTER Unavailable Unavailable Amber Wood MD Unavailable Unavailab Joe Treviño NP Primary Care Provider Agustin Zacarias MD Primary Care Provider Unavailabl e Encounter Details Date Type Department Care Team Description 07/13/2021 [facility] [address] [facility] [address] [place] [id number] Radha Snyder MD [address] [facility] [address] [place] [address] Social History Tobacco Use Types Packs/Day Years [...] have Coronavirus / COVID-19? No / Unsure 07/07/2021 8:05 AM EST documented as of this encounter Plan of Treatment Not on file documented as of this encounter Visit Diagnoses Not on filedocumented in this encounter Care Teams Ramp Boss Relationship Specialty Start Date End Date Amber Wood MD PCP - General Internal Medicine 05/02/21 2 Joe Uriarte NP PCP - General Family Practice 12/07/21 08/10/22 Agustin Mcfarlane MD PCP - General Internal Medicine 08/11/22 Joe Uriarte NP Primary Care Physician Family Practice 12/07/2112/07 Amber Wood MD Internal Medicine 12/07/21 documented as of this encounter
--- OUTSIDE RECORDS SUMMARY | 2025-01-23 12:56 | XMS_ITS ---
Author Name [facility] Organization Unknown Encounters Encounter Type Encounter Reason Primary Diagnosis Location Date Ambulatory [facility] 03/25/2024 Care Team Organization Name Specialty Phone Email Start Date End Da te [facility] [address] [facility] Agustin Mcfarlane Primary Care 06/29/2024 [facility] Joe Uriarte [facility] Agustin Mcfarlane Primary Care 11/03/2022
--- OUTSIDE RECORDS SUMMARY | 2025-01-23 12:56 | XMS_ITS | Encounter Summary ---
Author Organization [facility] Address [address] [place] [address] Care Team Providers Care Mold Design Engineer Name Role Phone Amber Wood MD Primary Care Provider Teresita Grace Pcp Primary Care Provider Manolo e Amber Wood MD Primary Care Provider oJe Nails NP Unavailable Unavailable Amber Wood MD Unavailable Unavailab Joe Treviño NP Primary Care Provider Agustin Zacarias MD Primary Care Provider Unavailabl e Encounter Details Date Type Department Care Team Description 07/06/2020 Customer Support Coordinator Report Medical Records [address] [place] [id number] Social History Tobacco Use Types Packs/Day Years [...] have Coronavirus / COVID-19? No / Unsure 06/17/2020 2:35 PM EST documented as of this encounter Plan of Treatment Not on file documented as of this encounter Visit Diagnoses Not on filedocumented in this encounter Care Teams Mold Design Engineer Relationship Specialty Start Date End Date Amber [...]
--- OUTSIDE RECORDS SUMMARY | 2025-01-23 12:56 | XMS_ITS | Encounter Summary ---
Author Organization [facility] Address [address] [place] [address] Care Team Providers Care Records Management Clerk Name Role Phone Amber Wood MD Primary [...] Date Type Department Care Team Description 05/13/[address] [id number] Amber Wood MD Medication Social History Tobacco [...] PM EST Pt is in the lobby [facility] with his Humira medication. Pt states he was told to just come in with medication and someone would show him how to use it. Pt states he will wait until someone comesback from lunch. documented in this encounter Plan of Treatment Not on file documented as of this encounter Visit Diagnoses Not on filedocumented in this encounter Care Teams Records Management Clerk Relationship Specialty Start Date End Date Amber Wood MD PCP - General Internal Medicine 09/07/16 1 On License Of [facility] PCP - General Internal Medicine 11/12/20 05/01/21 Amber Wood MD PCP - General Internal Medicine 05/02/21 2 Joe Uriarte NP PCP - General Family Practice 12/07/21 08/10/22 Agustin Mcfarlane MD PCP - General Internal Medicine 08/11/22 Joe Uriarte NP Primary Care Physician Family Practice 12/07/2112/07 Amber Wood MD Internal Medicine 12/07/21 documented as of this encounter
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
--- OUTSIDE RECORDS SUMMARY | 2025-01-23 12:56 | XMS_ITS | Clinical Summary ---
Author Organization [facility] Address [address] [place] [address] Phone Care Team Providers Care Manager Fashion Name Role Phone Joe Uriarte GREEN HOUSE MANAGER Primary Care Provider [phone] Allergies Active Allergy Reactions Criticality Noted Date [...] & Plan (05/30/2024 3:07 PM EST): Mr. Cortez has done quite well since his lumbar [...] negative side effects and stopped them. Mr. Cortez is doing well postop, sees improvement in [...] The MRI of the lumbar spine from [place] obtained on March 28, 2024 shows a [...] Humira Gastric reflux syndrome 09/18/2016 Hyperlipidemia 09/18/2016 Immunizations Name Administration Dates Next Due Influenza [...] History Date Comments Hyperlipidemia 09/18/2016 Prostate cancer ([facility] V24 , [facility] V28) 2010 had radical prostatectomy by Dr. [...] 91 04/10/2024 12:23 PM EST Temperature 36.9 C (98.4 F) 04/10/2024 12:23 PM EST Respiratory Rate 20 04/10/2024 12:23 PM EST Oxygen Saturation 95% 04/10/2024 12:23 PM EST Inhaled Oxygen Concentration - - Weight 74.8 kg (165 lb) 05/30/2024 2:30 PM EST Height 170.2 cm (5' 7 ) 05/30/2024 2:30 PM EST Body Mass Index 25.84 05/30/2024 2:30 PM EST Plan of Treatment Health Maintenance Due Date Last Done Comments Abdominal Aortic Aneurysm (AAA) Screen 05/06/2022 Falls Risk Assessment 05/06/2022 Social Influencers of Health Screening 05/06/2022 Medicare Annual Wellness Visit 12/08/2023 12/07/2022 COVID-19 Vaccine ( season) 2024 12/12/2021, 01/27/2021, 09/02/2020, Additional history exists Depression Screening 05/28/2024 Influenza Vaccine (#1) 2025 2, 03/23/2021, 04/12/2020, Additional history exists Hypertension/CHF/CAD Annual BMP Blood Test 01/12/2026 01/12/2025, 07/21/2024 Cholesterol Screening (Lipid Panel) 01/12/2030 01/12/2025, 07/21/2024 DTaP,Tdap,and Td Vaccines (2 - Td or Tdap) 07/02/2034 07/02/2024 Colorectal Cancer Screening: Colonoscopy 07/24/2034 07/24/2024, 06/07/2022 Hepatitis C Screening Completed 04/12/2020 RSV Immunization Adult Patients Completed 06/18/2023 Pneumococcal Vaccine: 50+ Years Completed 02/04/2024, 12/09/2021 Zoster Vaccines Completed 11/14/2024, 09/2024, 12/07/2022 HIB Vaccines Aged Out No longer eligi [...] this topic Medical Devices Implanted Type Area Digital Art Director Device Identifier Shelf Expiration Date Model / Serial / Lot Powder Surgifoam Absorb Gel - [id number] - [id number] Implanted:Qty: 1 on 04/10/2024 by Vickie Rose MD at [facility] [employer] Left: Back [facility] [employer] [id number] 10/29/20251977 / / [id number] Description:MIXED W/10,000UX THROMBIN Procedures Procedure Name Priority Date/Time Associated Diagnosis Comments URINALYSIS WITH REFLEX MICROSCOPIC Routine 01/12/2025 12:18 PM EDT Screening for thyroid disorder Screening for lipoid disorders URINALYSIS WITH REFLEX MICROSCOPIC Routine 01/12/2025 12:18 PM EDT Screening for thyroid disorder Screening for lipoid disorders CBC WITH AUTO DIFFERENTIAL Routine 01/12/2025 12:12 PM EDT Screening for thyroid disorder Screening for lipoid disorders VITAMIN D 25 HYDROXY Routine 01/12/2025 12:12 PM EDT Screening for thyroid disorder Screening for lipoid disorders Routine general medical examination at a [facility] facility Vitamin D deficiency disease LIPID PANEL WITH REFLEX TO DIRECT LDL Routine 01/12/2025 12:12 PM EDT Screening for thyroid disorder Screening for lipoid disorders THYROID STIMULATING HORMONE Routine 01/12/2025 12:12 PM EDT Screening for thyroid disorder Screening for lipoid disorders CBC AND DIFFERENTIAL Routine 01/12/2025 12:12 PM EDT Screening for thyroid disorder Screening for lipoid disorders COMPREHENSIVE METABOLIC PANEL Routine 01/12/2025 12:12 PM EDT Screening for thyroid disorder Screening for lipoid disorders HEMOGLOBIN A1C Routine 01/12/2025 12:12 PM EDT Screening for thyroid disorder Screening for lipoid disorders EXTERNAL COLONOSCOPY REPORT Routine 07/24/2024 10:36 AM [facility] HEPATITIS C SCREENING Routine 04/12/2020 from Last 3 Months or Most Recently Relevant to Health Maintenance Results * (ABNORMAL) Urinalysis with reflex microscopic (01/12/2025 12:18 PM EDT) Pathologist [facility] Specific [place] Urine 1.027 1.003 - 1.030 LAB URINALYSIS - AUTOMATED METHOD 01/12/2025 1:10 PM EDT [facility] pH, Urine 5.5 5.0 - 8.0 pH LAB URINALYSIS - AUTOMATED METHOD 01/12/2025 1:10 PM EDT [facility] Leukocytes, Urine Negative Negative LAB URINALYSIS - AUTOMATED METHOD 01/12/2025 1:10 PM EDT [facility] Nitrite, Urine Negative Negative LAB URINALYSIS - AUTOMATED METHOD 01/12/2025 1:10 PM EDT [facility] Protein, Urine Negative <=Trace mg/dL LAB URINALYSIS - AUTOMATED METHOD 01/12/2025 1:10 PM EDT [facility] Glucose, Urine Negative Negative mg/dL LAB URINALYSIS - AUTOMATED METHOD 01/12/2025 1:10 PM EDT [facility] Ketones, Urine Trace(A) Negative mg/dL LAB URINALYSIS - AUTOMATED METHOD 01/12/2025 1:10 PM EDT [facility] Urobilinogen, Urine 1.0 0.2 - 1.0 mg/dL LAB URINALYSIS - AUTOMATED METHOD 01/12/2025 1:10 PM EDT [facility] Bilirubin, Urine Small(A) Negative LAB URINALYSIS - AUTOMATED METHOD 01/12/2025 1:10 PM EDT [facility] Blood, Urine Negative Negative LAB URINALYSIS - AUTOMATED METHOD 01/12/2025 1:10 PM EDT [facility] Urine Urine specimen obtained by clean catch procedure / Unknown Non-blood Collection / Unknown 01/12/2025 12:18 PM EDT 01/12/2025 12:32 PM EDT us Joe Uriarte GREEN HOUSE MANAGER LAB URINE ORDERABLES Final Re sult [facility] [address] [place] [address], [place] [phone] * (ABNORMAL) Lipid panel with reflex to direct LDL (01/12/2025 12:12 PM EDT) Cholesterol 153 0 - 200 mg/dL LAB CHEMISTRY METHOD 01/12/2025 3:28 PM EDT [facility] Triglycerides 156(H) 0 - 150 mg/dL LAB CHEMISTRY METHOD 01/12/2025 3:28 PM EDT [facility] HDL 47 >=40 mg/dL LAB CHEMISTRY METHOD 01/12/2025 3:28 PM EDT [facility] LDL Calculated 75 0 - 100 mg/dL LAB CHEMISTRY METHOD 01/12/2025 3:28 PM EDT [facility] Comment:Estimated LDL Calcul ated using equation: Total cholesterol - HDL cholesterol - (Triglycerides/5) VLDL Cholesterol Socrates 31.2 mg/dL LAB CHEMISTRY METHOD 01/12/2025 3:28 PM EDT [facility] Non HDL Chol. (LDL+VLDL) 106 <145 mg/dL LAB CHEMISTRY METHOD 01/12/2025 3:28 PM EDT [facility] Chol/HDL Ratio 3.3 0.0 - 4.4 LAB CHEMISTRY METHOD 01/12/2025 3:28 PM EDT [facility] Blood Venous blood specimen / Unknown Venipuncture / Unknown 01/12/2025 12:12 PM EDT 01/12/2025 12:32 PM EDT us Joe Uriarte GREEN HOUSE MANAGER LAB BLOOD ORDERABLES Final Re sult [facility] [address] [place] [address], [place] [phone] * (ABNORMAL) CBC auto differential (01/12/2025 12:12 PM EDT) WBC 4.7(L) 4.8 - 10.8 K/mcL LAB HEMETOLOGY METHOD 01/12/2025 1:52 PM EDT [facility] RBC 4.80 4.50 - 5.50 M/mcL LAB HEMETOLOGY METHOD 01/12/2025 1:52 PM EDT [facility] Hemoglobin 15.6 13.5 - 17.5 g/dL LAB HEMETOLOGY METHOD 01/12/2025 1:52 PM EDT [facility] Hematocrit 45.8 42.0 - 54.0 % LAB HEMETOLOGY METHOD 01/12/2025 1:52 PM EDT [facility] MCV 94.8 79.0 - 98.0 FL LAB [facility]OLOGY [facility] MCH 32.3(H) 27.0 - 32.0 pcg LAB HEMETOLOGY METHOD 01/12/2025 1:52 PM EDT [facility] MCHC 34.1 32.0 - 37.0 g/dL LAB HEMETOLOGY METHOD 01/12/2025 1:52 PM [facility] RDW 13.6 11.0 - 15.0 % LAB HEMETOLOGY METHOD 01/12/2025 1:52 PM [facility] Platelets 179 130 - 400 K/mcL LAB HEMETOLOGY METHOD 01/12/2025 1:52 PM [facility] MPV 11.6(H) 7.0 - 11.0 FL LAB HEMETOLOGY METHOD 01/12[facility]2025 [facility] NRBC 0.0 <1.0 % LAB HEMETOLOGY METHOD 01/12/2025 1:52 PM [facility] NRBC Absolute 0.00 <0.10 K/mcL LAB HEMETOLOGY METHOD 01/12/2025 1:52 PM T [facility] Neutrophils Relative 55.2 % LAB HEMETOLOGY METHOD [facility]/12[facility]2025 [facility] Lymphocytes Relative 30.6 % LAB HEMETOLOGY METHOD 01/12/2025 1:52 PM [facility] Monocytes Relative 10.6 % LAB HEMETOLOGY METHOD 01/12/2025 1:[facility] Eosinophils Relative 2.8 % LAB HEMETOLOGY METHOD 01/12/2025 1:52 PM EDT [facility] Basophils Relative 0.2 % LAB HEMETOLOGY METHOD 01/12/2025 1:52 PM EDT [facility] Immature Granulocytes Relative 0.6 % LAB HEMETOLOGY METHOD 01/12/2025 1:52 PM EDT [facility] Neutrophils Absolute 2.59 1.50 - 7.00 K/mcL LAB HEMETOLOGY METHOD 01/12/2025 1:52 PM EDT [facility] Lymphocytes Absolute 1.44 1.00 - 5.00 K/mcL LAB HEMETOLOGY METHOD 01/12/2025 1:52 PM EDT [facility] Monocytes Absolute 0.50 0.20 - 1.00 K/mcL LAB HEMETOLOGY METHOD 01/12/2025 1:52 PM EDT [facility] Eosinophils Absolute 0.13 0.00 - 0.50 K/mcL LAB HEMETOLOGY METHOD 01/12/2025 1:52 PM EDT [facility] Basophils Absolute 0.01 0.00 - 0.20 K/mcL LAB HEMETOLOGY METHOD 01/12/2025 1:52 PM EDT [facility] Immature Granulocytes Absolute 0.03 0.00 - 0.03 K/mcL LAB HEMETOLOGY METHOD 01/12/2025 1:52 PM EDT [facility] Blood Venous blood specimen / Unknown Venipuncture / Unknown 01/12/2025 12:12 PM EDT 01/12/2025 12:32 PM EDT us Joe Uriarte NP LAB BLOOD ORDERABLES Final Re sult [facility] [address] [place] [address], * (ABNORMAL) Vitamin D 25 hydroxy (01/12/2025 12:12 PM EDT) [facility] Vit D, 25-Hydroxy 28.6(L) 30.0 - 80.0 ng/mL LAB CHEMISTRY METHOD 01/12/2025 4:58 PM EDT [facility] Blood Venous blood specimen / Unknown Venipuncture / Unknown 01/12/2025 12:12 PM EDT 01/12/2025 12:32 PM EDT Joe Uriarte GREEN HOUSE MANAGER LAB BLOOD ORDERABLES Final Re sult Performing Organization Address [facility]/ZIP Co de Phone Number [facility] [address] [place] [address], [place] [phone] * Thyroid stimulating hormone (01/12/2025 12:12 PM EDT) [facility] TSH 1.55 0.40 - 4.00 mcIU/mL LAB CHEMISTRY METHOD 01/12/2025 4:58 PM EDT [facility] Blood Venous blood specimen / Unknown Venipuncture / Unknown 01/12/2025 12:12 PM EDT 01/12/2025 12:32 PM EDT us Joe Uriarte NP LAB BLOOD ORDERABLES Final Re sult Performing Organization Address [facility] Co de Phone Number [facility] [address] [place] [address], [place] [phone] * Hemoglobin A1c (01/12/2025 12:12 PM EDT) [facility] Hemoglobin A1C 5.7 <6.5 % LAB CHEMISTRY METHOD 01/12/2025 2:59 PM EDT [facility] Mean Bld Glu Estim. 117 mg/dL LAB CHEMISTRY METHOD 01/12/2025 2:59 PM EDT [facility] Blood Venous blood specimen / Unknown Venipuncture / Unknown 01/12/2025 12:12 PM EDT 01/12/2025 12:32 PM EDT us Joe Uriarte GREEN HOUSE MANAGER LAB BLOOD ORDERABLES Final Re sult [facility] [address] [place] [address], [place] [phone] * Comprehensive metabolic panel (01/12/2025 12:12 PM EDT) Sodium 139 133 - 145 mmol/L LAB CHEMISTRY METHOD 01/12/2025 4:25 PM EDT [facility] Potassium 4.3 3.5 - 5.5 mmol/L LAB CHEMISTRY METHOD 01/12/2025 4:25 PM EDT [facility] Chloride 107 96 - 110 mmol/L LAB CHEMISTRY METHOD 01/12/2025 4:25 PM [facility] CO2 26 21 - 32 mmol/L LAB CHEMISTRY METHOD 01/12/2025 4:25 PM [facility] Anion Gap 6 3 - 11 LAB CHEMISTRY METHOD 01/12/2025 4:25 PM [facility] Glucose 93 70 - 100 mg/dL LAB CHEMISTRY METHOD 01/12/2025 4:25 PM [facility] BUN 19 5 - 25 mg/dL LAB CHEMISTRY METHOD 01/12/2025 4:25 PM [facility] Creatinine 1.01 0.70 - 1.30 mg/dL LAB CHEMISTRY METHOD 01/12/2025 4:25 PM [facility] eGFR 80 >=60 mL/min/1. 73m2 LAB CHEMISTRY METHOD 01/12/2025 4:25 PM [facility] Comment:Calculation based on the Chronic Kidney Disease Epidemiology Collaboration (CKD-EPI) equation refit without adjustment for race. BUN/Creatinine Ratio 18.8 LAB CHEMISTRY METHOD 01/12/2025 4:25 PM [facility] Calcium 9.8 8.5 - 10.5 mg/dL LAB CHEMISTRY METHOD 01/12/2025 4:25 PM EDT [facility] AST (SGOT) 25 10 - 42 unit/L LAB CHEMISTRY METHOD 01/12/2025 4:25 PM EDT [facility] ALT (SGPT) 46 10 - 60 unit/L LAB CHEMISTRY METHOD 01/12/2025 4:25 PM EDT [facility] Alkaline Phosphatase 61 42 - 121 unit/L LAB CHEMISTRY METHOD 01/12/2025 4:25 PM EDT [facility] Total Protein 7.3 6.0 - 8.0 g/dL LAB CHEMISTRY METHOD 01/12/2025 4:25 PM EDT [facility] Albumin 4.4 3.2 - 5.0 g/dL LAB CHEMISTRY METHOD 01/12/2025 4:25 PM EDT [facility] Total Bilirubin 1.1 0.0 - 1.4 mg/dL LAB CHEMISTRY METHOD 01/12/2025 4:25 PM EDT [facility] Blood Venous blood specimen / Unknown Venipuncture / Unknown 01/12/2025 12:12 PM EDT 01/12/2025 12:32 PM EDT Joe Uriarte GREEN HOUSE MANAGER LAB BLOOD ORDERABLES Final Re sult [facility] [address] [place] [address], * External Colonoscopy Report (07/24/2024 10:36 AM EST) Anatomical Region Laterality Modality Endoscopy Historical Provider GI~PROCEDURE ORDERABLES F inal Result * Hepatitis C Screening (04/12/2020) Hepatitis C [...] currently active code status orders. Care Teams Manager Fashion Relationship Specialty Start Date End Date Joe Uriarte NP [address] [address] PCP - General Nurse Practitioner 08/08/24
--- OUTSIDE RECORDS SUMMARY | 2025-01-23 12:56 | XMS_ITS | Encounter Summary ---
[facility] Address [address] [place] [address] Care Team Providers Care Wide Area Network Systems Administrator Name Role Phone Community, Pcp Primary Care Provider Unavailabl e Amber Wood MD Primary Care Provider Joe Nails NP Unavailable Unavailable Amber Wood MD Unavailable Unavailab Joe Treviño NP Primary Care Provider Agustin Zacarias MD Primary Care Provider Unavailabl e Reason for Referral * Non JOSE (Routine) - Closed Specialty Diagnoses / Procedures Referred By Contary t Referred To Contact ORTHOPEDICS / Orthopedic Diagnoses Carpal tunnel syndrome, bilateral Procedures REFERRAL TO ORTHOPEDICS (IN NETWORK) Aren Hawley MD [address] [place] [id number] Radha Snyder MD [address] [place] [id number] Referral ID Status Reason Start Date Expiration Date Visits Re quested Visits Authorized [id number] Closed 03/14/2021 03/14/2022 1 1 Reason for Visit * Reason Onset Date Comments REFERRAL 03/14/2021 Encounter Details Date Type Department Care Team Description 03/14/[address] [phone] Aren Hawley MD REFERRAL Social History Tobacco [...] have Coronavirus / COVID-19? No / Unsure 03/08/2021 1:31 PM EDT documented as of this encounter Miscellaneous Notes * Telephone Encounter - Aren Hawley MD - 03/14/2021 9:12 PM EDT I thought he already had a referral. I set up a new one for Jacquie ana Hawley MD * Telephone Encounter - Ame Sorto L.P.NDov - 03/14/2021 4:57 PM EDT Patient calls today asking for referral for hand surgery for carpal tunnel Patient saw Dr Conway and was interested in going forward with hand surgery 02-02-2021 (CLINICAL COMMENT: Study today shows worsening of CTS in the left. Patient considering surgery. No more signs of median neuro abdulaziz on the right.) ?? He has appt with Dr Hawley 03/23/[address] Hawley was doing referral Dr Hawley do you want to wait to see patient before doing referral? documented in this encounter Plan of Treatment Not on file documented as of this encounter Visit Diagnoses Diagnosis Carpal tunnel syndrome, bilateral- Primary Carpal tunnel syndrome documented in this encounter Care Teams Wide Area Network Systems Administrator Relationship Specialty Start Date End Date Community, Pcp PCP - General Internal Medicine 11/12/20 05/01/21 Amber Wood MD PCP - General Internal Medicine 05/02/21 2 Joe Uriarte, BLAKE PCP - General Family Practice 12/07/21 08/10/22 Agustin Mcafrlane MD PCP - General Internal Medicine 08/11/22 Joe Uriarte NP Primary Care Physician Family Practice 12/07/2112/07 Amber Wood MD Internal Medicine 12/07/21 documented as of this encounter
--- OUTSIDE RECORDS SUMMARY | 2025-01-23 12:56 | XMS_ITS | Encounter Summary ---
[facility] Address [address] [place] [address] Care Team Providers Care Unemployment Examiner Name Role Phone Amber Wood MD Primary Care Provider Teresita Grace, Pcp Primary Care Provider Unavailabl e Amber Wood MD Primary Care Provider Teresita Joe Jarvis NP Unavailable Unavailable Amber Wood MD Unavailable Unavailab Joe Treviño NP Primary Care Provider Agustin Zacarias MD Primary Care Provider Unavailabl e Reason for Visit * Reason Onset Date Comments Contact Centre Supervisor Feedback 06/02/2020 TB clinic referr al Encounter Details Date Type Department Care Team Description 06/02/2020 Telephone Rheumatology - [address] [address] Aren Hawley MD Contact Centre Supervisor Feedback (TB clinic referral) Social History Tobacco [...] to TB clinic. Thank you Kiki Referrals Optical [employer] * Telephone Encounter - Patti Jiang M.A. - 06/03/2020 2:26 PM EST Form has been filled out and signed by Dr. Hawley. Form faxed to referrals department at [phone]. Referrals department has been notified. * Telephone Encounter - Kiki Mariscal - 06/03/2020 8:45 AM EST I faxed it to you this morning. * Telephone Encounter - Aren Hawley MD - 06/02/2020 4:48 PM EST Kiki, Can you just fax it to me at [phone]? I will fill it out and fax [...] your soonest convenience. Thank you Kiki Referrals [employer] documented in this encounter Plan of Treatment Not on file documented as of this encounter Visit Diagnoses Not on filedocumented in this encounter Care Teams Unemployment Examiner Relationship Specialty Start Date End Date Amber [...]
--- OUTSIDE RECORDS SUMMARY | 2025-01-23 12:56 | XMS_ITS | Encounter Summary ---
[facility] Address [address] [place] [address] Care Team Providers Care Network Programmer Name Role Phone Amber Wood MD Unavailable Unavailab Joe Treviño NP Primary Care Provider Agustin Zacarias MD Primary Care Provider Unavailabl e Encounter Details Date Type Department Care Team Description 06/09/2022 Coke Still Cleaner Report Medical Records [address] [place] [id number] Abstract, Provider Social History Tobacco Use Types [...] on filedocumented in this encounter Care Teams Network Programmer Relationship Specialty Start Date End Date Joe Uriarte NP PCP - General Family Practice 12/07/21 08/10/22 Agustin Mcfarlane MD PCP - General Internal Medicine 08/11/22 Amber Wood MD Internal Medicine 12/07/21 documented as of this encounter
--- OUTSIDE RECORDS SUMMARY | 2025-01-23 12:56 | XMS_ITS | Clinical Summary ---
Author Organization [facility] Address [address] [place] [address] Care Team Providers Care Stock Clerk Self Service Store Name Role Phone Amber Wood MD Unavailable Unavailab Agustin Carty MD Primary Care Provider Unavailabl e Allergies Active Allergy Reactions Severity Noted Date Comments Sulfa Drugs 09/18/2016 Tetracycline 09/18/2016 Medications Medication Sig Dispensed Refills Start Date End Date Status BABY ASPIRIN OR Take by mouth daily. 0 Active atorvastatin (LIPITOR) 40 MG tablet Take 40 mg by mouth daily. 0 Active omeprazole (PRILOSEC) 40 MG capsule Take 40 mg by mouth daily. 0 Active Multiple Vitamin (MULTIVITAMINS OR) Take by mouth daily. 0 Acti ve folic acid (FOLVITE) 1 MG tabletIndications :Seronegative rheumatoid arthritis (HCC) Take 1 tablet by mouth daily. 90 tablet 3 03/23/2021 Active meloxicam (MOBIC) 15 MG tabletIndications :Seronegative rheumatoid arthritis (HCC) Take 1 tablet by mouth daily. 90 tablet 1 05/09/2021 Active methotrexate 2.5 MG tabletIndications :Seronegative rheumatoid arthritis (HCC) Take 8 Tablets by mouth once a week. 96 tablet 0 05/09/2021 Active duloxetine (CYMBALTA) 60 MG capsule Take 1 Capsule by mouth daily. 0 01/21/2024 Active Mounjaro 10 MG/0.5ML Solution Pen-injector INJECT 10MG SUBCUTANEOUSLY WEEKLY 0 03/03/2024 Active Golimumab 50 MG/0.5ML Solution Auto-injector Inject into the skin. 0 Active Active Problems Problem Noted Date TB lung, latent 04/26/2020 Overview: Positive QuantiFERON gold test March 2020 Last negative test was March 2018. Patient started on isoniazid and pyridoxine. He has appointment infectious disease to review the situation. Received INH for 9 months ending Jan 2021 Primary osteoarthritis of both knees Overview: NEOS: received gel injections ~ 2018 - a few months' benefit Left carpal tunnel syndrome 02/27/2017 Overview: EMG 2016: mild on left, moderate-severe on right Carpal tunnel syndrome, bilateral 2016 Overview: EMG 2016: moderate to severe on right, mild on left Right carpal tunnel release November 2017 Seronegative rheumatoid arthritis 2016 Overview: Methotrexate started 10/11 Methotrexate loosing effect 05/14- Humira added 06/17 - Xeljanz in place of Humira Hyperlipidemia 09/18/2016 Gastric reflux syndrome 09/18/2016 History of prostate cancer 09/18/2016 Overview: Treated with radical prostatectomy October 2010. Annie 6 - Dr. Tsai Immunizations Name Administration Dates Next Due COVID-19 (Pfizer) 01/27/2021,09/02/2020,08/13/19 21 Influenza Vaccine-quadrivalent 4 Years Plus 03/29 Influenza vaccine high dose age 65 and over 02/26,04/12/2020,02/25/2019 Family History Medical History Relation Name Comments Arthritis Mother Relation Name Status Comments Mother Social History Tobacco Use Types Packs/Day Years Used Date Smoking Tobacco: Former Cigarettes Q uit: 09/18/2016 Smokeless Tobacco: Never Tobacco Cessation:Counseling Given: Not Answered Comments:quit 19 years ago Alcohol Use Standard Drinks/Week Comments No 0 (1 standard drink = 0.6 oz pur e alcohol) Sex Assigned at Date Recorded Not on file Job Start Date Occupation Industry Not on file Not on file Not on file Last Filed Vital Signs Vital Sign Reading Time Taken Comments Blood Pressure 129/79 03/14/2024 8:43 AM EDT Pulse 89 03/14/2024 8:43 AM EDT Temperature 35.9 C (96.6 F) 07/18/2021 9:26 AM EST Respiratory Rate 19 07/18/2021 9:26 AM EST Oxygen Saturation 95% 11/23/2022 10:15 AM EDT Inhaled Oxygen Concentration - - Weight 77.1 kg (170 lb) 03/14/2024 8:43 AM EDT Height 170.2 cm (5' 7 ) 03/14/2024 8:43 AM EDT Body Mass Index 26.63 03/14/2024 8:43 AM EDT Plan of Treatment Health Maintenance Due Date Last Done Comments DEPRESSION SCREEN 1965 DTAP/TDAP/TD (1 - Tdap) 1972 CHOLESTEROL SCREENING 1973 SHINGLES VACCINE (1 of 2) 2003 FALL RISK ASSESSMENT 2018 PNEUMOCOCCAL VACCINE (1 - PCV) 2018 Covid-19 Vaccine (4 - 2022-2 4 season) 2024 01/27/2021, 09/02/2020, 08/12/2020 BMI CHECK/ADVISE 05/28/2024 07/18/2021, , 01/24/2021, Additional history exists DEPRESSION SCREENING/FOLLOWUP 05/28/2024 INFLUENZA (#1) 2025 03/23/2021, 03/28, 02/25/2019, Additional history exists COLON CANCER SCREENING 06/07/2032 06/07/2022 HEPATITIS C SCREENING Completed 04/12/2020 Care Teams Stock Clerk Self Service Store Relationship Specialty Start Date End Date Agustin Mcfarlane MD PCP - General Internal Medicine 08/11/22 Amber Wood MD Internal Medicine 12/07/21
--- OUTSIDE RECORDS SUMMARY | 2025-01-23 12:56 | XMS_ITS | Encounter Summary ---
Author Organization [facility] Address [address] [place] [address] Care Team Providers Care Power Generation Engineer Name Role Phone Amber Wood MD Primary Care Provider Teresita Grace Pcp Primary Care Provider Unavailabl e Amber Wood MD Primary Care Provider Joe Nails MEASUREMENT DEPARTMENT CHIEF CLERK Unavailable Unavailable Amber Wood MD Unavailable Unavailab Joe Treviño NP Primary Care Provider Agustin Zacarias MD Primary Care Provider Unavailabl e Encounter Details Date Type Department Care Team Description 09/06/2016 Icu Rn Report Medical Records [address] [place] [id number] Amber Wood MD Social History Tobacco Use [...] on filedocumented in this encounter Care Teams Power Generation Engineer Relationship Specialty Start Date End Date [...]
--- OUTSIDE RECORDS SUMMARY | 2025-01-23 12:56 | XMS_ITS | Encounter Summary ---
Author Organization [facility] Address [address] [place] [address] Care Team Providers Care Pusher Runner Name Role Phone Amber Wood MD Primary Care Provider Joe Nails NP Unavailable Unavailable Amber Wood MD Unavailable Unavailab Joe Treviño NP Primary Care Provider Agustin Zacarias MD Primary Care Provider Unavailabl e Encounter Details Date Type Department Care Team Description 12/05/2021 Craft Recruiter Report Medical Records [address] [place] [address] Jeo Uriarte, BLAKE Social History Tobacco Use Types Packs/Day Years [...] on filedocumented in this encounter Care Teams Pusher Runner Relationship Specialty Start Date End Date Amber Wood MD PCP - General Internal Medicine 05/02/21 2 Joe Uriarte NP PCP - General Family Practice 12/07/21 08/10/22 Agustin Mcfarlane MD PCP - General Internal Medicine 08/11/22 Joe Uriarte NP Primary Care Physician Family Practice 12/07/2112/07 Amber Wood MD Internal Medicine 12/07/21 documented as of this encounter
--- OUTSIDE RECORDS SUMMARY | 2025-01-23 12:56 | XMS_ITS | Encounter Summary ---
Author Organization [employer] [facility] Address [address] [place] [address] Care Team Providers Care Court Crier Name Role Phone [facility], Pcp Primary Care Provider Manolo e Amber Wood MD Primary Care Provider Joe Nails NP Unavailable Unavailable Amber Wood MD Unavailable Unavailab Joe Treviño NP Primary Care Provider Agustin Zacarias MD Primary Care Provider Unavailabl e Reason for Visit * Reason Onset Date Comments Square Cutter Feedback [facility] Encounter Details Date Type Department Care Team Description 03/29/2021 Telephone Rheumatology - [address] [address] Aren Hawley MD Square Cutter Feedback ([facility]) Social History Tobacco Use Types Packs/Day Years [...] encounter Miscellaneous Notes * Telephone Encounter - Katina Benavides - 03/29/2021 1:11 PM EDT Unable to pend referral patient has an outside PCP. Patient must call their PCP office and request the referral. * Telephone Encounter - Myah Penaloza - 03/29/2021 11:32 AM EDT Patient needs Demographics, notes and referral send to them. Please send What insurance does the patient have today? Medicare and medicaid Effective 02/25/09: [employer] will not retro referral requests over 90 days. If request is for this please instruct patient to call the 800# on their insurance card to appeal. Do not submit a request. Referrals cannot be processed if the insurance is not accurate. If the insurance listed above in red is NO BILLING INFORMATION FOUND FOR THIS ENCOUTNER The patients correct insurance must be obtained and registered in [employer] or their referral can not be processed. Is this a retro request? NO. If yes for what date of service do you need the retro referral? N/A Who is calling to request this referral? patient If the caller is not the patient, what is their name? N/A Ask the patient WHO referred them to this specialty: Patient spoke to Dr Hawley and was told they would order a referral to this specialty FIRST and LAST NAME of SPECIALIST PATIENT is seeing: [facility] What specialty is this? Rheumatology DIAGNOSIS Patient is being seen for (Not a body part or a procedure): left carpal tunnel syndrome on EMG Have you seen this SPECIALIST for this PROBLEM/DX before?NO If YES, when:n/a Have you checked REVIEW or the APPT DESK to see if this referral has already been done or has visits left? YES Is this visit:Initial Visit Address of Specialist:[address] [place] [address] Phone # of Specialist: Fax #: (if applicable):[phone] Does patient have an appointment scheduled?: NO Date of appointment- (including a retro-request): n/a Is this appointment related to: Not MVA, WC or Surgery related documented in this encounter Plan of Treatment Not on file documented as of this encounter Visit Diagnoses Not on filedocumented in this encounter Care Teams Court Crier Relationship Specialty Start Date End Date Community, Pcp PCP - General Internal Medicine 11/12/20 05/01/21 Amber Wood MD PCP - General Internal Medicine 05/02/21 Joe Uriarte NP PCP - General Family Practice 12/07/21 08/10/22 Agustin Mcfarlane MD PCP - General Internal Medicine 08/11/22 Joe Uriarte SCHOOL RESOURCE OFFICER Primary Care Physician Family Practice 12/07/2112/07 Amber Wood MD Internal Medicine 12/07/21 documented as of this encounter
[2025-01-23 12:58] LABS: Hematocrit 42.5 % (42.0-52.0); Hemoglobin 15.1 g/dl (14.0-18.0); Imm Gran Abs Auto 0.02 X10*3/uL (0.00-0.03); Imm Gran Pct Auto 0.4 % (0.0-0.4); Lymphocytes Absolute Auto 0.9 X10*3/uL (1.2-4.9); Mean Corpuscular HGB Conc 35.5 g/dl (31.0-36.0); Mean Corpuscular Hemoglobin 33.3 pg (27.0-33.0); Mean Corpuscular Volume 93.6 fL (80.0-98.0); NRBC Abs Auto 0.000 X10*3/uL (0.0-0.012); NRBC Pct Auto 0.0 /100WBC (0.0-0.2); Platelet Count 147 X10*3/uL (160-400); Red Blood Count 4.54 X10*6/uL (4.60-5.80); White Blood Count 5.3 X10*3/uL (4.8-10.8)
[2025-01-23 13:05] LABS: Alanine Aminotransferase 38 U/L (0-40); Albumin Level 4.5 g/dL (3.5-5.0); Alkaline Phosphatase 54 U/L (39-117); Anion Gap 9 (12-20); Aspartate Amino Transferase 26 U/L (5-37); Blood Urea Nitrogen 21 mg/dL (9-16); Calcium 9.4 mg/dL (8.4-10.2); Carbon Dioxide 28 mmol/L (22-29); Chloride 107 mmol/L (96-108); Estimated Glomerular Filt Rate > 60; Potassium 4.3 mmol/L (3.3-5.1); Sodium 140 mmol/L (135-145); Total Protein 7.2 g/dL (6.5-8.0)
[2025-01-24 03:57] LABS: HBS Num1 1.56 mIU/mL (0-7.99); HBc Num1 0.05 S/CO (0.00-0.79); HBsAGNum1 0.50 S/CO (0.00-0.99); Hepatitis B Surface Antigen Negative (Negative); ~HepC Num1 0.09 S/CO (0.00-0.79); ~Hepatitis B Surface Antibody NONREACTIVE (Nonreactive); ~Hepatitis C Antibody Nonreactive (Nonreactive)
[2025-01-27 10:17] LABS: TS Negative Control Passed; TS Panel A 0; TS Panel B 0; TS Positive Control Passed; TSpotTB Negative (Negative)
== END 2025-01-23 12:15 | disposition home or self-care (01) ==
LOC: HO.10HDL 12:14
PROVIDERS: Visit Provider Student in an Organized Health Care Education/Training Program
DX: Z11.1 Encounter for screening for respiratory tuberculosis (principal); Z79.899 Other long term (current) drug therapy
CPT/HCPCS: 36415; 80053; 85025; 85652; 86140; 86481; 86704; 86706; 86803; 87340

== ENCOUNTER 2025-02-04 13:15 | Outpatient (AMB) | payer MEDICARE, MEDICAID, SELFPAY ==
--- OUTSIDE RECORDS SUMMARY | 2024-10-17 06:30 | XMS_ITS ---
Author Organization [facility] [address] Address [address] [place] [address] Care Team Providers Care Spinning Frame Cleaner Name Role Phone GLENN KINGSLEY Unavailable [phone] Medications Medication SIG (Take, Route, Frequency, Duration) [...] 09/21/2024 Active Acyclovir 5 % 1 application Classer ally Five times a day; Duration: 4 [...] Omeprazole 40 MG TAKE 1 CAPSULE BY [facility] EVERY DAY 30 MINUTES BEFORE MORNING MEAL; [...] Methotrexate 2.5 MG TAKE 8 TABLETS BY [facility] ONCE WEEKLY; Duration: 75 Active Loperamide HCl 2 MG 1 capsule as needed for diarrhea Orally Four times a day; Duration: 5 days 07/08/2023 Active Encounters Encounter Location Date Provider Diagnosis [facility] [address] [place] [phone] 10/17/2024 GLENN KINGSLEY Rheumatoid arthritis without rheumatoid [...] software and direct typing Please excuse inadvertent environmental technician or typing errors, or uncorrected word substitutions Although every attempt has been made by the provider to proofread this document, occasional misspellings and typographical errors may still be present Due to the previous pandemic, and the use of personal protective equipment (PPE) This may decrease voice recognition accuracy Inadvertent environmental technician errors may occur 10/17/2024 Essential (primary) hypertension [...] software and direct typing Please excuse inadvertent environmental technician or typing errors, or uncorrected word substitutions Although every attempt has been made by the provider to proofread this document, occasional misspellings and typographical errors may still be present Due to the previous pandemic, and the use of personal protective equipment (PPE) This may decrease voice recognition accuracy Inadvertent environmental technician errors may occur 10/17/2024 Rheumatoid arthritis without [...] software and direct typing Please excuse inadvertent environmental technician or typing errors, or uncorrected word substitutions Although every attempt has been made by the provider to proofread this document, occasional misspellings and typographical errors may still be present Due to the previous pandemic, and the use of personal protective equipment (PPE) This may decrease voice recognition accuracy Inadvertent environmental technician errors may occur 10/17/2024 Rheumatoid arthritis without [...] software and direct typing Please excuse inadvertent environmental technician or typing errors, or uncorrected word substitutions Although every attempt has been made by the provider to proofread this document, occasional misspellings and typographical errors may still be present Due to the previous pandemic, and the use of personal protective equipment (PPE) This may decrease voice recognition accuracy Inadvertent environmental technician errors may occur 10/17/2024 Rheumatoid arthritis without [...] software and direct typing Please excuse inadvertent environmental technician or typing errors, or uncorrected word substitutions Although every attempt has been made by the provider to proofread this document, occasional misspellings and typographical errors may still be present Due to the previous pandemic, and the use of personal protective equipment (PPE) This may decrease voice recognition accuracy Inadvertent environmental technician errors may occur 10/17/2024 Hx of prostatic [...] software and direct typing Please excuse inadvertent environmental technician or typing errors, or uncorrected word substitutions Although every attempt has been made by the provider to proofread this document, occasional misspellings and typographical errors may still be present Due to the previous pandemic, and the use of personal protective equipment (PPE) This may decrease voice recognition accuracy Inadvertent environmental technician errors may occur 10/17/2024 S/P TURP (status [...] software and direct typing Please excuse inadvertent environmental technician or typing errors, or uncorrected word substitutions Although every attempt has been made by the provider to proofread this document, occasional misspellings and typographical errors may still be present Due to the previous pandemic, and the use of personal protective equipment (PPE) This may decrease voice recognition accuracy Inadvertent environmental technician errors may occur 10/17/2024 Prediabetes (ICD-10 - [...] software and direct typing Please excuse inadvertent environmental technician or typing errors, or uncorrected word substitutions Although every attempt has been made by the provider to proofread this document, occasional misspellings and typographical errors may still be present Due to the previous pandemic, and the use of personal protective equipment (PPE) This may decrease voice recognition accuracy Inadvertent environmental technician errors may occur 10/17/2024 Erectile dysfunction following [...] software and direct typing Please excuse inadvertent environmental technician or typing errors, or uncorrected word substitutions Although every attempt has been made by the provider to proofread this document, occasional misspellings and typographical errors may still be present Due to the previous pandemic, and the use of personal protective equipment (PPE) This may decrease voice recognition accuracy Inadvertent environmental technician errors may occur 10/17/2024 Osteoporosis without current [...] software and direct typing Please excuse inadvertent environmental technician or typing errors, or uncorrected word substitutions Although every attempt has been made by the provider to proofread this document, occasional misspellings and typographical errors may still be present Due to the previous pandemic, and the use of personal protective equipment (PPE) This may decrease voice recognition accuracy Inadvertent environmental technician errors may occur Plan Of Treatment Medication Medication Name Sig Start Date Stop Date Notes valACYclovir HCl 1 GM 1 tablet Orally th ree times a day; Duration: 7 days Next Appt Details Provider Name:GLENN KINGSLEY, 06/04/2025 03:30:00 PM, [address] [facility], [facility] [address], [place], [phone], Progress Notes * Fox CORTEZ:1955 (69 yo M)Acc No.[id number]:10/17/2024 Progress Notes Patient: Garrett PAUL Provider: Yady KINGSLEY NP :1955 A ge:69 Y S ex:Male Date:10/17/2024 Address:[address] [place], [place] [id number] Subjective: * Chief Complaints: * * HPI: [...] CARDS followed by Urologist Eulalio followed by School Age Lead Teacher Joao in [place] gettting infusions monthly (Simponi) Osteoporotic according to [...] software and direct typing Please excuse inadvertent environmental technician or typing errors, or uncorrected word substitutions Although every attempt has been made by the provider to proofread this document, occasional misspellings and typographical errors may still be present Due to the previous pandemic, and the use of personal protective equipment (PPE) This may decrease voice recognition accuracy Inadvertent environmental technician errors may occur Plan: * Treatment: * Procedure Codes: 9 9199 NO SHOW OFFICE VISIT * Images: Billing Information: * Visit Code: * Procedure Codes: 13652 NO SHOW OFFICE VISIT. 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
--- OUTSIDE RECORDS SUMMARY | 2025-02-03 05:30 | XMS_ITS ---
Author Organization [facility] Address [address] [place] [address] Care Team Providers Care Manager Sustainability Name Role Phone GLENN KINGSLEY Unavailable [phone] Allergies Allergen (clinical drug ingredient) Drug/Non Drug Allergy documented on EMR Reaction Allergy Type Onset Date Status Substance with sulfonamide structure and antibacterial mechanism of action (substance) Sulfa Antibiotics hives Drug Allergy Active tetracycline Tetracycline Hives Drug Allergy A ctive REASON FOR VISIT pt is here for annual MWV with labs and no acute concerns or issues Medications Medication SIG (Take, Route, Frequency, Duration) Notes Start Date End Date Status Tamiflu 75 MG 1 capsule Orally Twi ce a day; Duration: 5 days 01/28/2025 Active Xeljanz 5 MG Oral; Duration: 30 Active Senna 8.6 MG 2 tablets at bedtime as needed Orally Once a day; Duration: 30 days 01/28/2025 Active valACYclovir HCl 1 GM 1 tablet Orally th ree times a day; Duration: 7 days Active Ondansetron 4 MG 1 tablet on the tong ue and allow to dissolve prn nausea/vomiting Orally twice day; Duration: 10 days 01/28/2025 Active Mounjaro 10 MG/0.5ML INJECT 10MG SUBCUTA NEOUSLY ONCE WEEKLY; Duration: 28 Active Co Q-10 100 MG TAKE 1 CAPSULE BY [facility] TWICE A DAY; Duration: 90 Active B-12 1000 MCG 1 tablet Orally Once a day; Duration: 90 days 01/20/2025 Active Mupirocin Calcium 2 % apply to affected area Externally 3 times a day; Duration: 30 days 12/28/2024 Active Vitamin D3 125 MCG (5000 UT) 1 capsule Orally Once a day; Duration: 90 days 01/20/2025 Active Acyclovir 5 % 1 application [employer] ally Five times a day; Duration: 4 day(s) 09/24/2024 Active Zovirax 5 % 1 application to aff ected area Externally Five times a day; Duration: 4 days 09/21/2024 Active Mounjaro 12.5 MG/0.5ML 12.5mg Subcutaneo us weekly; Duration: 30 days 10/28/2024 Active Azithromycin 500 MG 1 tablet Orally Once a day; Duration: 5 days 09/10/2024 Active Methotrexate Sodium 2.5 MG TAKE 8 TABLET S BY MOUTH ONCE WEEKLY (75 DAYS); Duration: 75 days Active Ibuprofen 800 MG TAKE 1 TABLET BY [facility] EVERY 8 HOURS WITH FOOD OR MILK NEEDED; Duration: 30 Active HYDROmorphone HCl 4 MG 1/2 to 1 tablet a s needed severe pain Orally every 6 hrs; Duration: 10 days 04/14/2024 Active Docusate Sodium 100 MG 1 capsule as need ed Orally three times a day; Duration: 30 days 04/14/2024 Active Tadalafil 20 MG TAKE 1 TABLET 30 MIN UTES BEFORE SEXUAL ACTIVITY ONCE A DAY; Duration: 30 Active Atorvastatin Calcium 40 MG TAKE 1 TABLET BY MOUTH EVERY DAY; Duration: 90 Active Folic Acid 1 MG TAKE 1 TABLET BY [facility] EVERY DAY FOR 90 DAYS; Duration: 90 Active Loperamide HCl 2 MG 1 capsule as needed for diarrhea Orally Four times a day; Duration: 5 days 07/08/2023 Active Meloxicam 15 MG TAKE 1 TABLET BY [facility] EVERY DAY; Duration: 90 Active Omeprazole 40 MG TAKE 1 CAPSULE BY [facility] EVERY DAY 30 MINUTES BEFORE MORNING MEAL; Duration: 90 Active Methotrexate 2.5 MG TAKE 8 TABLETS BY [facility] ONCE WEEKLY; Duration: 75 Active Vitamin B-6 50 MG TAKE 1 TABLET BY [facility] EVERY DAY Oral; Duration: 90 Active Atorvastatin Calcium 80 MG 1 tablet Oral ly Once a day; Duration: 90 days 12/05/2021 Active Social History Tobacco Use: Social History Observation Description Date Details (start date - stop date) Former Smoker NA - NA Tobacco Use/Smoking Question Answer Notes Are you a former smoker How long has it been since y ou last smoked? > 10 years Additional Findings: Tobacco User Modera te cigarette smoker (10-19 cigs/day) Vital Signs Blood pressure systolic 120 mm Hg 02/04/20 25 Blood pressure diastolic 64 mm Hg 025 Heart Rate 84 /min 02/03/2025 Height 66 in 02/03/2025 Weight 176 lbs 02/03/2025 BMI 28.4 kg/m2 02/03/2025 Oximetry 99 % 02/03/2025 Encounters Encounter Location Date Provider Diagnosis [facility] [address] [facility] [address] [place] [address] 02/03/2025 GLENN KINGSLEY Essential (primary) hypertension I10 ; Annual physical exam Z00.00 ; Rheumatoid arthritis without rheumatoid factor, right [...] of blood pressure without abnormal findings Z01.30 Assessments Encounter Date Diagnosis (ICD Code) Assessment Notes Treatment Notes Treatment Clinical Notes Section Notes 02/03/2025 Essential (primary) hypertension (ICD-10 - I10) Acute Concerns/Problem List: 02/03/2025 No acute concerns today Labs reviewed Seeing ENT later this month Status post L3-L4 microdiscectomy with excellent results, [...] software and direct typing Please excuse inadvertent health occupations instructor or typing errors, or uncorrected word substitutions Although every attempt has been made by the provider to proofread this document, occasional misspellings and typographical errors may still be present Due to the previous pandemic, and the use of personal protective equipment (PPE) This may decrease voice recognition accuracy Inadvertent health occupations instructor errors may occur 02/03/2025 Annual physical exam (ICD-10 - Z00.00) Acute Concerns/Problem List: 02/03/2025 No acute concerns today Labs reviewed Seeing ENT later this month Status post L3-L4 microdiscectomy with excellent results, [...] software and direct typing Please excuse inadvertent health occupations instructor or typing errors, or uncorrected word substitutions Although every attempt has been made by the provider to proofread this document, occasional misspellings and typographical errors may still be present Due to the previous pandemic, and the use of personal protective equipment (PPE) This may decrease voice recognition accuracy Inadvertent health occupations instructor errors may occur 02/03/2025 Rheumatoid arthritis without rheumatoid factor, right hand (ICD-10 - M06.041) Acute Concerns/Problem List: 02/03/2025 No acute concerns today Labs reviewed Seeing ENT later this month Status post L3-L4 microdiscectomy with excellent results, [...] software and direct typing Please excuse inadvertent health occupations instructor or typing errors, or uncorrected word substitutions Although every attempt has been made by the provider to proofread this document, occasional misspellings and typographical errors may still be present Due to the previous pandemic, and the use of personal protective equipment (PPE) This may decrease voice recognition accuracy Inadvertent health occupations instructor errors may occur 02/03/2025 Rheumatoid arthritis without rheumatoid factor, left hand (ICD-10 - M06.042) Acute Concerns/Problem List: 02/03/2025 No acute concerns today Labs reviewed Seeing ENT later this month Status post L3-L4 microdiscectomy with excellent results, [...] software and direct typing Please excuse inadvertent health occupations instructor or typing errors, or uncorrected word substitutions Although every attempt has been made by the provider to proofread this document, occasional misspellings and typographical errors may still be present Due to the previous pandemic, and the use of personal protective equipment (PPE) This may decrease voice recognition accuracy Inadvertent health occupations instructor errors may occur 02/03/2025 Rheumatoid arthritis without rheumatoid factor, right knee (ICD-10 - M06.061) Acute Concerns/Problem List: 02/03/2025 No acute concerns today Labs reviewed Seeing ENT later this month Status post L3-L4 microdiscectomy with excellent results, [...] software and direct typing Please excuse inadvertent health occupations instructor or typing errors, or uncorrected word substitutions Although every attempt has been made by the provider to proofread this document, occasional misspellings and typographical errors may still be present Due to the previous pandemic, and the use of personal protective equipment (PPE) This may decrease voice recognition accuracy Inadvertent health occupations instructor errors may occur 02/03/2025 Rheumatoid arthritis without rheumatoid factor, left knee (ICD-10 - M06.062) Acute Concerns/Problem List: 02/03/2025 No acute concerns today Labs reviewed Seeing ENT later this month Status post L3-L4 microdiscectomy with excellent results, [...] software and direct typing Please excuse inadvertent health occupations instructor or typing errors, or uncorrected word substitutions Although every attempt has been made by the provider to proofread this document, occasional misspellings and typographical errors may still be present Due to the previous pandemic, and the use of personal protective equipment (PPE) This may decrease voice recognition accuracy Inadvertent health occupations instructor errors may occur 02/03/2025 Hx of prostatic malignancy (ICD-10 - Z85.46) Acute Concerns/Problem List: 02/03/2025 No acute concerns today Labs reviewed Seeing ENT later this month Status post L3-L4 microdiscectomy with excellent results, [...] software and direct typing Please excuse inadvertent health occupations instructor or typing errors, or uncorrected word substitutions Although every attempt has been made by the provider to proofread this document, occasional misspellings and typographical errors may still be present Due to the previous pandemic, and the use of personal protective equipment (PPE) This may decrease voice recognition accuracy Inadvertent health occupations instructor errors may occur 02/03/2025 S/P TURP (status post transurethral resection of prostate) (ICD-10 - Z90.79) Acute Concerns/Problem List: 02/03/2025 No acute concerns today Labs reviewed Seeing ENT later this month Status post L3-L4 microdiscectomy with excellent results, [...] software and direct typing Please excuse inadvertent health occupations instructor or typing errors, or uncorrected word substitutions Although every attempt has been made by the provider to proofread this document, occasional misspellings and typographical errors may still be present Due to the previous pandemic, and the use of personal protective equipment (PPE) This may decrease voice recognition accuracy Inadvertent health occupations instructor errors may occur 02/03/2025 Prediabetes (ICD-10 - R73.03) Acute Concerns/Problem List: 02/03/2025 No acute concerns today Labs reviewed Seeing ENT later this month Status post L3-L4 microdiscectomy with excellent results, [...] software and direct typing Please excuse inadvertent health occupations instructor or typing errors, or uncorrected word substitutions Although every attempt has been made by the provider to proofread this document, occasional misspellings and typographical errors may still be present Due to the previous pandemic, and the use of personal protective equipment (PPE) This may decrease voice recognition accuracy Inadvertent health occupations instructor errors may occur 02/03/2025 Erectile dysfunction following simple prostatectomy (ICD-10 - N52.34) Acute Concerns/Problem List: 02/03/2025 No acute concerns today Labs reviewed Seeing ENT later this month Status post L3-L4 microdiscectomy with excellent results, [...] software and direct typing Please excuse inadvertent health occupations instructor or typing errors, or uncorrected word substitutions Although every attempt has been made by the provider to proofread this document, occasional misspellings and typographical errors may still be present Due to the previous pandemic, and the use of personal protective equipment (PPE) This may decrease voice recognition accuracy Inadvertent health occupations instructor errors may occur 02/03/2025 Osteoporosis without current pathological fracture, unspecified osteoporosis type (ICD-10 - M81.0) Acute Concerns/Problem List: 02/03/2025 No acute concerns today Labs reviewed Seeing ENT later this month Status post L3-L4 microdiscectomy with excellent results, [...] software and direct typing Please excuse inadvertent health occupations instructor or typing errors, or uncorrected word substitutions Although every attempt has been made by the provider to proofread this document, occasional misspellings and typographical errors may still be present Due to the previous pandemic, and the use of personal protective equipment (PPE) This may decrease voice recognition accuracy Inadvertent health occupations instructor errors may occur 02/03/2025 Encounter for examination of blood pressure without abnormal findings (ICD-10 - Z01.30) Acute Concerns/Problem List: 02/03/2025 No acute concerns today Labs reviewed Seeing ENT later this month Status post L3-L4 microdiscectomy with excellent results, [...] software and direct typing Please excuse inadvertent health occupations instructor or typing errors, or uncorrected word substitutions Although every attempt has been made by the provider to proofread this document, occasional misspellings and typographical errors may still be present Due to the previous pandemic, and the use of personal protective equipment (PPE) This may decrease voice recognition accuracy Inadvertent health occupations instructor errors may occur Plan Of Treatment Medication Medication Name Sig Start Date Stop Date Notes valACYclovir HCl 1 GM 1 tablet Orally th ree times a day; Duration: 7 days Next Appt Details Provider Name:GLENN KINGSLEY, 06/04/2025 03:30:00 PM, [address] [place] [address], [phone], Progress Notes * Matt CORTEZOB:1955 (69 yo M)Acc No.[id number]:02/03/2025 Progress Note Patient: Garrett PAUL Provider: Yady KINGSLEY NP :1955 A ge:69 Y S ex:Male Date:02/03/2025 Address:[address] [place], [place] [id number] Subjective: * Chief Complaints: * 1 . pt is here for annual MWV with labs and no acute concerns or issues. * HPI: C onstitutional: Patient is here for a Medicare Wellness Visit ([place]) Complete paperwork was reviewed and updated and has been filed and scan. Age appropriate screening measures reviewed Depression screen completed. PHQ-9: 0 Alcohol audit screening completed. AUDIT: 0 Cognition assessed MMSE 28 Fall risk assessed Obesity screen completed. C ardiovascular risk stratification screen completed. Discussed healthcare proxy. Discussed [place] order for life sustaining treatment, Comprehensive fasting labs reviewed Patient seen and examined. F ull past medical history, social history, family history, allergies and current medications were reviewed and updated. Acute Concerns/Problem List: 02/03/2025 No acute concerns today Labs reviewed Has scheduled ENT evaluation in late January Dr Garcia Reports pain in his throat that started a year ago, reports intermittent difficulty swallowing solids but not liquids Denies SOB or difficulty breathing Reports dry cough for over a year Denies night sweats, fevers, dizziness, chest pain r ecent esophagram/barium swallow 07/2024 M oderate esophageal dysmotility, otherwise normal double contrast esophagram exam. Patient underwent successful left L3-L4 minimally invasive microdiscectomy on April 10, [address] Rose Since then he has had complete resolution of his radicular left leg pain denies any paresthesias and feels well other Past medical history that includes [...] CARDS followed by Urologist Eulalio followed by [facility] in [place] gettting infusions monthly (Simponi) Osteoporotic according to records, and on Alendronate, Rheum follows this Does have obstructive sleep apnea via sleep study, has not been initiated on auto CPAP yet Since the weight loss sleeping much better and likely will not need CPAP Health maintenance Flu 2024 at pharmacy Prevnar 20 at pharmacy Cscope: 05/2022, 10 yr surveilance, (Julisa) COVID MRNA x 5 Shingrix: x 2 RSV: UTD Comprehensive labs December 2024 CBC mostly stable Total cholesterol 153, triglycerides 156, HDL 47, LDL 75 Vitamin D 28 TSH 1.55 Renal function electrolytes and LFTs are stable Hemoglobin A1c 5.7 UA unremarkable. * ROS: A ll Other Systems: Review of Systems (ROS) A ll others negative except those mentioned in HPI. * Medical History: H yperlipidemia, Prostate cancer, Hemorrhoids, Arthritis, Rheumatoid arthritis, gastroesophageal reflux disease (GERD). * Surgical History: P rostate Surgery , Inguinal Hernia surgery , Hemorrhoidectomy , Heart Ablation . * Hospitalization/Major Diagno stic Procedure: D enies Past Hospitalization. * Family History: F ather: . M other: . 2 brother(s) , 3 sister(s) - healthy. 3 son(s) , 1 daughter(s) - healthy. . Parent unknwn health. * Social History: T obacco Use: T obacco Use/Smoking A re you a f ormer smoker, H ow long has it been since you last smoked? > 10 years, A dditional Findings: Tobacco User M oderate cigarette smoker (10-19 cigs/day). * Medications: T aking valACYclovir HCl 1 [...] Orally Four times a day , Taking Folic Acid 1 MG Tablet TAKE 1 TABLET BY MOUTH EVERY DAY FOR 90 DAYS , Taking Meloxicam 15 MG Tablet TAKE [...] 1 application Externally Five times a day , Taking Mounjaro 12.5 MG/0.5ML Solution Auto-injector 12.5mg Subcutaneous weekly , Taking Co Q-10 100 MG Capsule TAKE 1 CAPSULE BY MOUTH TWICE A DAY , Taking Mounjaro 10 MG/0.5ML Solution Auto-injector INJECT 10MG SUBCUTANEOUSLY ONCE WEEKLY , Taking Mupirocin Calcium 2 % Cream apply to affected area Externally 3 times a day , Taking B-12 1000 MCG Tablet Extended Release 1 tablet Orally Once a day , Taking Vitamin D3 125 MCG (5000 UT) Capsule 1 capsule Orally Once a day , Taking Tamiflu 75 MG Capsule 1 capsule Orally Twice a day , Taking Ondansetron 4 MG Tablet Disintegrating 1 tablet on the tongue and allow to dissolve prn nausea/vomiting Orally twice day , Taking Senna 8.6 MG Tablet 2 tablets at bedtime as needed Orally Once a day , Medication List reviewed and reconciled with the patient * Allergies: S ulfa Antibiotics: hives, Tetracycline: Hives. Objective: * Vitals: H R:84/min, BP:120/64mm Hg, Wt:176lbs, BMI:28.4Index, Ht: 66 in, Oxygen sat %:99%. * Examination: G eneral Examination: GENERAL APPEARANCE: A lert and oriented, well-developed and well-nourishedSome moderate discomfort. H EAD: n ormocephalic, atraumatic. E YES: p upils equal, round, reactive to light and accommodation. E ARS: n ormal. O RAL CAVITY: m uc[place] moist. T HROAT: c lear. N CATRINA/THYROID: n catrina supple, limited range of motion, with flexion and extension, right lateral flexion and left lateral flexion right rotation and left rotation no cervical lymphadenopathy. H EART: n o murmurs, regular rate and rhythm, S1, S2 normal. L UNGS: c lear to auscultation bilaterally.?ABDOMEN: n ormal, bowel sounds present, soft, nontender, nondistended. E XTREMITIES: Right Hand Dominant Right hand, painful range [...] sensory exam intact. Assessment: * Assessment: 1. A nnual physical exam - Z00.00 (Primary) 2 . E ssential (primary) hypertension - I10 3 . R heumatoid arthritis without rheumatoid factor, right hand - M06.041 4 . R heumatoid arthritis without rheumatoid factor, left hand - M06.042 5. R heumatoid arthritis without rheumatoid factor, right knee - M06.061 ? 6 . R heumatoid arthritis without rheumatoid factor, left knee - M06.062 ?7. H x of prostatic malignancy - Z85.46 8 . S /P TURP (status post transurethral resection of prostate) - Z90.79 9 . P rediabetes - R73.03 ?10. E rectile dysfunction following simple prostatectomy - N52.34 1 1. O steoporosis without current pathological fracture, unspecified osteoporosis type - M81.0 1 2. E ncounter for examination of blood pressure without abnormal findings - Z01.30 ? Acute Concerns/Problem List: 02/03/2025 No acute concerns today Labs reviewed Seeing ENT later this month Status post L3-L4 microdiscectomy with excellent results, [...] software and direct typing Please excuse inadvertent health occupations instructor or typing errors, or uncorrected word substitutions Although every attempt has been made by the provider to proofread this document, occasional misspellings and typographical errors may still be present Due to the previous pandemic, and the use of personal protective equipment (PPE) This may decrease voice recognition accuracy Inadvertent health occupations instructor errors may occur Plan: * Treatment: * Procedure Codes: 3 078F DIAST BP < 80 MM HG, 3074F SYST BP LT 130 MM HG, G0439 ANNUAL WELLNESS VST; PPS SUBSQT VST, G0444 ANNUAL DEPRESSION SCREENING 15 MIN, Modifiers: 59 , G0442 ANNUAL ALCOHOL MISUSE SCREEN 15 MIN, Modifiers: 59 , 44622 ADVNCD CARE PLAN 30 MIN, Modifiers: 33 * Images: Billing Information: * Visit Code: * Procedure Codes: 3078F DIAST BP < 80 MM HG. 3074F SYST BP LT 130 MM HG. G0439 ANNUAL WELLNESS VST; PPS SUBSQT VST. G0444 ANNUAL DEPRESSION SCREENING 15 MIN. Modifiers: 59 G0442 ANNUAL ALCOHOL MISUSE SCREEN 15 MIN. Modifiers: 59 [id number] ADVNCD CARE PLAN 30 MIN. Modifiers: 33 Care Plan Details* * Sign off status: Completed true * Provider: Yady KINGSLEY NP Date: 0 02/03/2025 Generated for Kimberly morocho/Jean/Sondra on: 0 02/04/2025 04:14 PM EDT History and Physical Notes * HPI (History of Present Illness) Category Sub-Category Detail Notes Category Not es Constitutional Patient is here for a Medicare Wellness Visit ([place]) Complete paperwork was reviewed and updated and has been filed and scan. Age appropriate screening measures reviewed Depression screen completed. PHQ-9: 0 Alcohol audit screening completed. AUDIT: 0 Cognition assessed MMSE 28 Fall risk assessed Obesity screen completed. Cardiovascular risk stratification screen completed. Discussed healthcare proxy. Discussed [place] order for life sustaining treatment, Comprehensive fasting labs reviewed Patient seen and examined. Full past medical history, social history, family history, allergies and current medications were reviewed and updated. Acute Concerns/Problem List: 02/03/2025 No acute concerns today Labs reviewed Has scheduled ENT evaluation in late January Dr Garcia Reports pain in his throat that started a year ago, reports intermittent difficulty swallowing solids but not liquids Denies SOB or difficulty breathing Reports dry cough for over a year Denies night sweats, fevers, dizziness, chest pain recent esophagram/barium swallow 07/2024 Moderate esophageal dysmotility, otherwise normal double contrast esophagram exam. Patient underwent successful left L3-L4 minimally invasive microdiscectomy on April 10, [address] Rose Since then he has had complete resolution of his radicular left leg pain denies any paresthesias and feels well other Past medical history that includes [...] CARDS followed by Urologist Eulalio followed by [facility] in [place] gettting infusions monthly (Simponi) Osteoporotic according to records, and on Alendronate, Rheum follows this Does have obstructive sleep apnea via sleep study, has not been initiated on auto CPAP yet Since the weight loss sleeping much better and likely will not need CPAP Health maintenance Flu 2024 at pharmacy Prevnar 20 at pharmacy Cscope: 05/2022, 10 yr surveilance, (Julisa) COVID MRNA x 5 Shingrix: x 2 RSV: UTD Comprehensive labs December 2024 CBC mostly stable Total cholesterol 153, triglycerides 156, HDL 47, LDL 75 Vitamin D 28 TSH 1.55 Renal function electrolytes and LFTs are stable Hemoglobin A1c 5.7 UA unremarkable Examination Category Sub-Category Detail Notes Category [...] are diminished, 3/5 sensory exam intact SKIN: EXTREMITIES: Right Hand DominantR ight hand, painful [...]
--- NOTE | 2025-02-04 13:29 | A.OFFVIS_ITS ---
Vital Signs 02/04/25 13:35 Height 5 ft 7 in Weight 175 lb 7.807 oz BMI 27.5 BP 98/60 Blood Pressure Location Rt brachial Position Sitting Pulse 90 Pulse Source Pulse Oximeter Pulse Oximetry (%) 97 Oxygen Delivery Method Room Air Intake Visit Reasons: follow up RA Intake Note: Patient presents for RA follow up. Allergies tocilizumab (From Actemra) Adverse Reaction (Severe, Verified 02/04/25 13:34) Blister, muscle pain Sulfa (Sulfonamide Antibiotics) Adverse Reaction (Mild, Verified 02/04/25 13:34) Hives, Urticaria tetracycline Adverse Reaction (Mild, Verified 02/04/25 13:34) Hives, Urticaria Medication List - Last Reconciled 02/04/25 by Susan Lord MD aspirin 81 mg PO DAILY atorvastatin 40 mg PO DAILY coenzyme Q10 100 mg PO DAILY duloxetine 60 mg PO DAILY folic acid 1 mg PO DAILY methotrexate (PF) (Rasuvo (PF)) 25 mg (0.5 mL) subcut QWEEK multivitamin 1 tab PO DAILY omeprazole 40 mg PO QAM tirzepatide (Mounjaro) mg subcut upadacitinib ER (Rinvoq) 15 mg PO DAILY HPI Comments Details: Patient is a 69-year-old male with hyperlipidemia, GERD, history of latent TB status post treatment, fibromyalgia, polyarticular osteoarthritis and seronegative rheumatoid arthritis here today for follow up Interval History: Patient last seen 10/02/24 with me - On Simponi 2mg/kg infusions, methotrexate 20mg weekly and folic acid 1mg daily - Previously doing well on infusions but now complaining of worsening joint pain and swelling despite simponi infusions - Moderate disease activity on exam - Stopped simponi and started Rinvoq Today - On Rinvoq 15mg daily and MTx 20mg weekly - Doing better but still having pain and stiffness in his hands Rheumatologic History: Methotrexate started 10/11 Methotrexate loosing effect 05/14- Humira added 06/17 - Xeljanz in place of Humira( Humira ineffective) 08/2021-11/2021 trial of Olumiant in place of Xeljanz Trial of Enbrel late 2021 - 09/2022 - not helpful Trial of Actemra - oral ulcers after 2nd dose - methotrexate continued Orencia 07/2023 - DC 10/2023 ineffective Simponi SQ 10/2023 partially effective, changed to Simponi Aria infusions 02/2024 effective - 09/2024 secondary non response Rinvoq 09/2024 - partially effective Most recent history by Dr. Hawley 04/2023: The patient returns for evaluation of his rheumatoid arthritis, osteoarthritis, and fibromyalgia. He r emains on methotrexate 20 mg weekly, meloxicam 15 mg daily, and folic acid 1 mg daily. At his last visit we added in Cymbalta 30 mg daily for his fibromyalgia symptoms. He says he still has many areas of muscle and joint pains but they seem to be more tolerable at present. He notes stiffness across the fingers and MCP regions every morning. There is occasional hand paresthesia. He does not seem to have had any side effects with his medications. He is also on Mounjaro injections for weight loss. He thinks he has lost 20 lb although our charts indicate more like a 2 lb weight change in the last 6 months. He said he was told that the Mounjaro might help his hand pain but it does not seem to have done so. Current Rheumatology Medication(s): Rinvoq 15mg daily Methotrexate 20mg weekly PO Folic acid 1 mg daily PFSH Medical History Hyperlipidemia GERD (gastroesophageal reflux disease) Rheumatoid arthritis Osteoarthritis of both knees Arthralgia Surgical History History of cervical spinal surgery Hx of colonoscopy H/O arthroscopic knee surgery History of carpal tunnel release of both wrists H/O prostatectomy Family History Father Stroke Social History Alcohol intake: former Patient Tobacco Use Status: Former Tobacco user Years Smoked: Ocassionally smokes Hookah Current occupational status: retired Review of Systems Const Details: Review of Systems Constitutional: Denies fever, chills, weight loss ENT: Denies vision changes, eye pain or eye redness, dental caries, dry mouth GI: Denies nausea, vomiting, diarrhea, abdominal pain, change in BM Pulm: Denies SOB, [place], hemoptysis, wheezing Cards: Denies chest pain, palpitations Skin: Denies Raynaud's, rash, nail changes, photosensitivity, HEALTH CARE CONSULTANT: Denies headaches, weakness, paresthesias, recurrent falls MSK: as per HPI All other systems reviewed and are unremarkable except noted above Physical Exam Exam Exam: Vital signs reviewed Physical Examination CONSTITUITIONAL Patient alert and cooperative. Well appearing and in no apparent painful distress MSK Hands * Right Hand: Able to make a fist. No swelling but TTP of the 2nd-5th MCPs * Left Hand: Able to make a fist. No swelling but TTP of the 2nd-5th MCPs * Herbedens nodes noted bilaterally with TTP over the nodes Wrists * Right Wrist: Full ROM to flexion and extension. No swelling or TTP * Left Wrist: Full ROM to flexion and extension. No swelling or TTP Elbows * Right Elbow: Full ROM. No swelling or TTP. No TTP of the medial epicondyle. No TTP of the lateral epicondyle * Left Elbow: Full ROM. No swelling or TTP. No TTP of the medial epicondyle. No TTP of the lateral epicondyle Shoulders * Right shoulder: No swelling noted. No TTP of the AC joint. No TTP of the subacromial bursa. No TTP of the posterior shoulder * Left shoulder: No swelling noted. No TTP of the AC joint. No TTP of the subacromial bursa. No TTP of the posterior shoulder Knees * Right knee: Full ROM. No swelling noted. No TTP of the knee joint line. No TTP of pes anserine bursa * Left knee: Full ROM. No swelling noted. No TTP of the knee joint line. No TTP of pes anserine bursa. * Crepitations felt bilaterally Ankles * Right ankle: Good ankle dorsiflexion and plantar flexion. No swelling. No TTP of the ankle joint * Left ankle: Good ankle dorsiflexion and plantar flexion. No swelling. No TTP of the ankle joint Feet * Right foot: Negative squeeze test * Left foot: Negative squeeze test Tender points? * No tenderness to palpation of the bilateral trapezius, supraspinatus, anterior costochondral junctions, bilateral suboccipital muscle insertions SKIN No rashes Vital Signs: Last Vital Signs Pulse 90 02/04/25 13:35 BP 98/60 02/04/25 13:35 Pulse Ox 97 02/04/25 13:35 Oxygen Delivery Method Room Air 02/04/25 13:35 BMI result Body Mass Index 27.5 Results Reviewed Results Reviewed: Laboratory Tests 01/23/25 12:20 WBC 5.3 RBC 4.54 L Hgb 15.1 Hct 42.5 Plt Count 147 L ESR 5 Sodium 140 Potassium 4.3 Chloride 107 Carbon Dioxide 28 BUN 21 H Creatinine 0.90 AST 26 ALT 38 C-Reactive Protein 0.25 Laboratory Tests 01/23/25 12:20 Hep Bs Antigen Negative Hep Bs Antibody NONREACTIVE Hep B Core Total Ab Nonreactive Hepatitis C Ab (EIA) Nonreactive TB Test (T-Spot) Com Negative Assessment & Plan Assessment & Plan (1) Rheumatoid arthritis: Comment: Methotrexate started 10/11 Methotrexate loosing effect 05/14- Humira added 06/17 - Xeljanz in place of Humira( Humira ineffective) 08/2021-11/2021 trial of [address]um[address] in place of Xeljanz Trial of Enbrel late 2021 - 09/2022 - not helpful Trial of Actemra - oral ulcers after 2nd dose - methotrexate continued Orencia 07/2023 - DC 10/2023 ineffective Simponi SQ 10/2023 partially effective, changed to Simponi Aria infusions 02/2024 - 09/2024 not effective Rinvoq 09/2024 - present partially effective Stop PO Mtx and start SC Mtx 01/2025 Code(s): M06.9 - Rheumatoid arthritis, unspecified Category: Medical Qualifiers: Rheumatoid arthritis location: multiple sites Rheumatoid factor presence: without rheumatoid factor Qualified Code(s): M06.09 - Rheumatoid arthritis without rheumatoid factor, multiple sites Plan: #Seronegative RA Patient is a 69-year-old male with seronegative rheumatoid arthritis here for follow up. He is on methotrexate 20 mg weekly, folic acid and Rinvoq. There has been improvement in his exam and his symptoms but still with synovitis involving multiple joints in bilateral hands. The Rinvoq is definitely helping as there has been improvment in his wrists, feet and elbows. Will try to optimize the methotrexate by switching to SC and increasing the dose. Despite this regimen patient still has moderately active RA with tender and swollen joints on exam today. And continued prolonged AM stiffness. Plan - Rinvoq 15mg daily - Start Rasuvo 25mg SC weekly - Folic acid 1 mg daily - RTC 4 months - Labs before visit: CBC, CMP, ESR, CRP (2) Latent tuberculosis: Comment: Positive QuantiFERON gold test March 2020 Last negative test was March 2018. Patient started on isoniazid and pyridoxine. He has Received INH for 9 months ending Jan 2021 Code(s): Z22.7 - Latent tuberculosis Category: Medical Plan: #Latent Tb Positive QuantiFERON gold test March 2020 Last negative test was March 2018. Patient started on isoniazid and pyridoxine. He has Received INH for 9 months ending Jan 2021 Nost recent Tb test negative (3) Fibromyalgia: Code(s): M79.7 - Fibromyalgia Category: Medical Plan: #Fibromyalgia Continue with duloxetine 60 mg daily (4) Encounter for methotrexate monitoring: Code(s): Z51.81 - Encounter for therapeutic drug level monitoring; Z79.631 - keno terminal operator (current) use of antimetabolite agent Plan: #Long-term Current Use of Methotrexate Discussed with patient the benefits and risks of methotrexate for managing their rheumatic condition Benefits include reduced pain, reduced mortality, maintenance of remission and reduction of flares Risks include oral ulcers, photosensitivity, hepatotoxicity, hematologic toxicity, pneumonitis, flu-like symptoms (especially day after administration), nodulosis, lymphomas ? Limit alcohol and avoid Bactrim ? Monitoring: CBC, BMP, LFTs every 3-4 months and hepatitis serologies as needed (5) Long-term use of immunosuppressant medication: Code(s): Z79.60 - keno terminal operator (current) use of unspecified immunomodulators and immunosuppressants Category: Medical Plan: #Long-term Use of LOUIE inhibitor: Rinvoq Discussed with patient the benefits and risks of LOUIE inhibitors for the management of the rheumatic condition Benefits include reduce pain, maintenance of remission and reduction of flares Risks include thromboembolic events, skin cancer and nonmelanoma skin cancers, other forms of cancer, cardiovascular alcohol and mortality Advise patient that they are to hold the medication and for up to 1 week after a febrile illness or an open skin wound Plan I spent 38 minutes reviewing patient's chart, evaluating patient, ordering diagnostic workup, counseling patient and documenting in the chart Orders: Orders Complete Blood Count Auto Diff 4 Months Z79.899 - Other usp (current) drug therapy C Reactive Protein 4 Months Z79.899 - Other petroleum terminal plant operator (current) drug therapy Comprehensive Met. Panel 4 Months Z79.899 - Other usp (current) drug therapy Erythrocyte Sedimentation Rate 4 Months Z79.899 - Other petroleum terminal plant operator (current) drug therapy Medications: New methotrexate (PF) (Rasuvo (PF)) 25 mg (0.5 mL) subcut QWEEK 2 mL 5RF M06.09 - Rheumatoid arthritis without rheumatoid factor, multiple sites Refilled upadacitinib ER (Rinvoq) 15 mg PO DAILY 30 tabs 6RF M06.09 - Rheumatoid arthritis without rheumatoid factor, multiple sites folic acid 1 mg PO DAILY 90 tabs 1RF M06.09 - Rheumatoid arthritis without rheumatoid factor, multiple sites duloxetine 60 mg PO DAILY 90 caps 1RF M79.7 - Fibromyalgia Discontinued methotrexate sodium Discontinued Reason: Doctor's Order 20 mg (8 x 2.5 mg) PO QWEEK 90 days 104 tabs 1RF M06.09 - Rheumatoid arthritis without rheumatoid factor, multiple sites Coding Level of Care Code Est Pt Level 4 (41378) Complex EM visit Add On G2211 Diagnoses Rheumatoid arthritis of multiple sites with negative rheumatoid factor M06.09 Rheumatoid arthritis location: multiple sites Rheumatoid factor presence: without rheumatoid factor 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 Fibromyalgia M79.7 Encounter for methotrexate monitoring Z51.81; Z79.631 Long-term use of immunosuppressant medication Z79.60
[2025-02-04 13:35] VITALS: BP 98/60; PULSE 90; O2SAT 97; BMI 27.5
--- OUTSIDE RECORDS SUMMARY | 2025-02-04 16:14 | XMS_ITS | Encounter Summary ---
Author Organization [facility] Address [address] [place] [address] Care Team Providers Care Lease Administration Supervisor Name Role Phone Amber Wood MD Primary [...] Department Care Team Description 01/20/2018 Refill Rheumatology [address] [address] Aren Hawley MD E-prescribe Rx Request Social [...] N/A Patients current insurance carrier is: Pay[facility] [employer] [facility] / Plan: [facility] / Product Type: MEDICAID RISK documented in this encounter Plan of Treatment Not on file documented as of this encounter Visit Diagnoses Not on filedocumented in this encounter Care Teams Lease Administration Supervisor Relationship Specialty Start Date End Date Amber Wood MD PCP - General Internal Medicine 09/07/16 1 [facility], Pcp PCP - General Internal Medicine 11/12/20 [...]
--- OUTSIDE RECORDS SUMMARY | 2025-02-04 16:14 | XMS_ITS | Encounter Summary ---
Author Organization [facility] Address [address] [place] [address] Care Team Providers Care Live Truck Operator Name Role Phone Amber Wood MD Primary Care Provider Teresita Grace Pcp Primary Care Provider Unavailcolton e Amber Wood MD Primary Care Provider Joe Nails NP Unavailable Unavailable Amber Wood MD Unavailable Unavailab Joe Treviño NP Primary Care Provider Agustin Zacarias MD Primary Care Provider Unavailabl e Encounter Details Date Type Department Care Team Description 09/25/2016 Transfer Records Medical Records [address] [place] [address] Abstract, Provider Social History Tobacco Use Types [...] on filedocumented in this encounter Care Teams Live Truck Operator Relationship Specialty Start Date End Date Amber [...]
--- OUTSIDE RECORDS SUMMARY | 2025-02-04 16:14 | XMS_ITS | Encounter Summary ---
Author Organization [facility] Address [address] [place] [address] Care Team Providers Care Edge Dyer Name Role Phone Amber Wood MD Primary Care Provider Teresita Grace Pcp Primary Care Provider Ojabl e Amber Wood MD Primary Care Provider Joe Nails NP Unavailable Unavailable Amber Wood MD Unavailable Unavailab Joe Treviño NP Primary Care Provider Agustin Zacarias MD Primary Care Provider Unavailabl e Encounter Details Date Type Department Care Team Description 10/29/2017 Release of Information Medical Records [address] [place] [address] Abstract, Provider Social History Tobacco Use Types [...] on filedocumented in this encounter Care Teams Edge Dyer Relationship Specialty Start Date End Date Amber [...]
--- OUTSIDE RECORDS SUMMARY | 2025-02-04 16:14 | XMS_ITS | Encounter Summary ---
Author Organization [facility] Address [address] [place] [address] Care Team Providers Care Linux Programmer Name Role Phone Amber Wood MD Primary [...] Date Type Department Care Team Description 05/13/[address] [address] Amber Wood MD Medication Social History Tobacco [...] Pt is in the lobby [facility] with his Humira medication. Pt states he was told to just come in with medication and someone would show him how to use it. Pt states he will wait until someone comesback from lunch. documented in this encounter Plan of Treatment Not on file documented as of this encounter Visit Diagnoses Not on filedocumented in this encounter Care Teams Linux Programmer Relationship Specialty Start Date End Date Amber Wood MD PCP - General Internal Medicine 09/07/16 1 [facility], [facility] PCP - General Internal Medicine 11/12/20 [...]
--- OUTSIDE RECORDS SUMMARY | 2025-02-04 16:14 | XMS_ITS | Encounter Summary ---
Author Organization [facility] Address [address] [place] [address] Care Team Providers Care Traffic Operations Manager Name Role Phone Amber Wood MD Primary Care Provider Teresita Grace Pcp Primary Care Provider Manolo e Amber Wood MD Primary Care Provider Joe Nails NP Unavailable Unavailable Amber Wood MD Unavailable Unavailab Joe Treviño NP Primary Care Provider Agustin Zacarias MD Primary Care Provider Unavailabl e Encounter Details Date Type Department Care Team Description 07/06/2020 Scoop Driver Report Medical Records [address] [place] [address] Social History Tobacco Use Types Packs/Day Years [...] on filedocumented in this encounter Care Teams Traffic Operations Manager Relationship Specialty Start Date End Date [...]
--- OUTSIDE RECORDS SUMMARY | 2025-02-04 16:14 | XMS_ITS | Encounter Summary ---
[facility] Address [address] [place] [address] Care Team Providers Care Inside Plant Supervisor Name Role Phone Amber Wood MD Primary Care Provider Teresita Grace, Pcp Primary Care Provider Unavailabl e Amber Wood MD Primary Care Provider Joe Nails NP Unavailable Unavailable Amber Wood MD Unavailable Unavailab Joe Treviño NP Primary Care Provider Agustin Zacarias MD Primary Care Provider Unavailabl e Reason for Visit * Reason Onset Date Comments Prior Authorization 06/14/2020 Humira Pen/ Xeljanz 5 mg Encounter Details Date Type Department Care Team Description 06/14/2020 Telephone Rheumatology - [address] [address] Aren Hawley MD Prior Authorization (Humira Pen/ Xeljanz 5 mg ) Social History Tobacco Use Types Packs/Day Years [...] Notes * Telephone Encounter - Ame Sorto L.P.NDov - 06/15/2020 4:41 PM EST Patient notified to stop Humira for now He was due for injection 06/21/20 He will wait for delivery of the Xeljanz tablets, he will call if he has not received the Xeljanz by next week 06/23/20 * Telephone Encounter - Ame Sorto L.P.N. - 06/15/2020 4:19 PM EST Xeljanz approved from 05/16/2020 to 09/13/2020 PA # N/A PA done through [facility] [employer] Plan ID# [id number] Approval dates to pharmacy Script faxed to [facility] Papers filed. Patient notified Provider notified * Telephone Encounter - Patti Jiang M.A. - 06/15/2020 2:35 PM EST PA started on CoverMyMeds. Diaz: [id number] PA for Humira has been cancelled/deleted. * Telephone Encounter - Aren Hawley MD - 06/14/2020 4:43 PM EST Blanca, please call patient [phone] (home) [phone] (work) Humira not working Wish to change to Xeljanz; will need a new PA Aren Hawley MD * Telephone Encounter - Patti Jiang M.A. - 06/14/2020 10:56 AM EST Incoming fax PA request from [employer] for Humira. ID#[id number]. Scripts go to [facility]. PA started on CoverMyMeds- Diaz: [id number]. documented in this encounter Plan of Treatment Not on file documented as of this encounter Visit Diagnoses Diagnosis Seronegative rheumatoid arthritis (HCC)- Primary Rheumatoid arthritis documented in this encounter Care Teams Inside Plant Supervisor Relationship Specialty Start Date End Date Amber Wood MD PCP - General Internal Medicine 09/07/16 1 [facility], Pcp PCP - General Internal Medicine [...]
--- OUTSIDE RECORDS SUMMARY | 2025-02-04 16:14 | XMS_ITS | Encounter Summary ---
Author Organization [facility] Address [address] [place] [address] Care Team Providers Care Cooker Casing Name Role Phone Amber Wood MD Primary Care Provider Joe Nails NP Unavailable Unavailable Amber Wood MD Unavailable Unavailab Joe Treviño NP Primary Care Provider Agustin Zacarias MD Primary Care Provider Unavailabl e Encounter Details Date Type Department Care Team Description 12/05/2021 Therapist Radiation Report Medical Records [address] [place] [address] Joe Uriarte, BLAKE Social History Tobacco Use Types [...] on filedocumented in this encounter Care Teams Cooker Casing Relationship Specialty Start Date End Date Amber Wood MD PCP - General Internal Medicine 05/02/21 2 Joe Uriarte NP PCP - General Family Practice 12/07/21 08/10/22 Agustin Mcfarlane MD PCP - General Internal Medicine 08/11/22 Joe Uriarte NP Primary Care Physician Family Practice 12/07/2112/07 Amber Wood MD Internal Medicine 12/07/21 documented as of this encounter
--- OUTSIDE RECORDS SUMMARY | 2025-02-04 16:14 | XMS_ITS | Encounter Summary ---
Author Organization [facility] Address [address] [place] [address] Care Team Providers Care Mathematics Teacher Name Role Phone [facility], Pcp Primary Care Provider Manolo e Amber Wood MD Primary Care Provider Joe Nails NP Unavailable Unavailable Amber Wood MD Unavailable Unavailab Joe Treviño NP Primary Care Provider Agustin Zacarias MD Primary Care Provider Unavailabl e Reason for Visit * Reason Onset Date Comments Letter 04/05/2021 Encounter Details Date Type Department Care Team Description 04/05/2021 Telephone Rheumatology - [address] [address] Aren Hawley MD Letter Social History Tobacco [...] some years ago with Dr. Lim at [facility] The patient is not on any blood [...] a letter or something be sent to [facility] so he may continue with services, states a nurse comes over to his home monthly to check on him and do vitals. shun rec'd Dr Hawley's last office note of 01/24/21 and they then denied patient services, they told pt there was nothing wrong with him I called Shun at [phone] No answer, no ans machine Patient is pleading that we help him Dr Hawely do you want to do a letter to this program re patients dx and medication needs? documented in this encounter Plan of Treatment Not on file documented as of this encounter Visit Diagnoses Not on filedocumented in this encounter Care Teams Mathematics Teacher Relationship Specialty Start Date End Date Community, [...]
--- OUTSIDE RECORDS SUMMARY | 2025-02-04 16:14 | XMS_ITS | Encounter Summary ---
Author Organization [facility] Address [address] [place] [address] Care Team Providers Care Rig Supervisor Name Role Phone Amber Wood MD Primary Care Provider Teresita Grace, Pcp Primary Care Provider Unavailabl e Amber Wood MD Primary Care Provider Joe Nails LUMBER INSPECTOR Unavailable Unavailable Amber Wood MD Unavailable Unavailab Joe Treviño NP Primary Care Provider Agustin Zacarias MD Primary Care Provider Unavailabl e Encounter Details Date Type Department Care Team Description 10/05/2011 [facility] Proxy Form Medical Records [address] [place] [address] Abstract, Provider Social History Tobacco Use Types Packs/Day Years Used Date Smoking Tobacco: Never Assessed Sex Assigned at Date Recorded Not on file Job Start Date Occupation Industry Not on file Not on file Not on file documented as of this encounter Plan of Treatment Not on file documented as of this encounter Visit Diagnoses Not on filedocumented in this encounter Care Teams Rig Supervisor Relationship Specialty Start Date End Date [...]
--- OUTSIDE RECORDS SUMMARY | 2025-02-04 16:14 | XMS_ITS | Clinical Summary ---
Author Organization [facility] Address [address] [place] [address] Phone Care Team Providers Care Turret Punch Press Operator Name Role Phone Joe Uriarte GEAR GENERATOR SET UP OPERATOR Primary Care Provider [phone] Allergies Active Allergy Reactions Criticality Noted Date [...] The MRI of the lumbar spine from [place] obtained on March 28, 2024 shows a [...] History Date Comments Hyperlipidemia 09/18/2016 Prostate cancer ([facility] V24 , [facility] V28) 2010 had radical prostatectomy by Dr. [...] 05/06/2022 Medicare Annual Wellness Visit 12/08/2023 12/07/2022 Depression Screening 05/28/2024 COVID-19 Vaccine ( season) 2025 12/12/2021, 01/27/2021, 09/02/2020, Additional history exists Influenza Vaccine (#1) 2025 2, 03/23/2021, 04/12/2020, [...] this topic Medical Devices Implanted Type Area Legal Secretary Device Identifier Shelf Expiration Date Model / Serial / Lot Powder S[employer] Absorb Gel - [id number] - [id number] Implanted:Qty: 1 on 04/10/2024 by Vickie Rose MD at [facility] [employer] Left: Back [facility] [employer] [id number] 10/29/20251977 / / [id number] Description:MIXED W/10,000UX THROMBIN Procedures Procedure Name Priority [...] disorders Routine general medical examination at a [facility] facility Vitamin D deficiency disease LIPID PANEL [...] EXTERNAL COLONOSCOPY REPORT Routine 07/24/2024 10:36 AM [facility] HEPATITIS C SCREENING Routine 04/12/2020 from Last 3 Months or Most Recently Relevant to Health Maintenance Results * (ABNORMAL) Urinalysis with reflex microscopic (01/12/2025 12:18 PM EDT) Pathologist [facility] Specific [place] Urine 1.027 1.003 - 1.030 LAB URINALYSIS - AUTOMATED METHOD 01/12/2025 1:10 PM EDT [facility] pH, Urine 5.5 5.0 - 8.0 pH LAB URINALYSIS - AUTOMATED METHOD 01/12/2025 1:10 PM EDT [facility] Leukocytes, Urine Negative Negative LAB URINALYSIS - AUTOMATED METHOD 01/12/2025 1:10 PM EDT [facility] Nitrite, Urine Negative Negative LAB URINALYSIS - AUTOMATED METHOD 01/12/2025 1:10 PM EDT [facility] Protein, Urine Negative <=Trace mg/dL LAB URINALYSIS - AUTOMATED METHOD 01/12/2025 1:10 PM EDT [facility] Glucose, Urine Negative Negative mg/dL LAB URINALYSIS - AUTOMATED METHOD 01/12/2025 1:10 PM EDT [facility] Ketones, Urine Trace(A) Negative mg/dL LAB URINALYSIS - AUTOMATED METHOD 01/12/2025 1:10 PM EDT [facility] Urobilinogen, Urine 1.0 0.2 - 1.0 mg/dL LAB URINALYSIS - AUTOMATED METHOD 01/12/2025 1:10 PM EDT [facility] Bilirubin, Urine Small(A) Negative LAB URINALYSIS - AUTOMATED METHOD 01/12/2025 1:10 PM EDT [facility] Blood, Urine Negative Negative LAB URINALYSIS - AUTOMATED METHOD 01/12/2025 1:10 PM EDT [facility] Urine Urine specimen obtained by clean catch procedure / Unknown Non-blood Collection / Unknown 01/12/2025 12:18 PM EDT 01/12/2025 12:32 PM EDT us Joe Uriarte GEAR GENERATOR SET UP OPERATOR LAB URINE ORDERABLES Final Re sult [facility] [address] [place] [address], [place] [phone] * (ABNORMAL) Lipid panel with reflex to direct LDL (01/12/2025 12:12 PM EDT) Cholesterol 153 0 - 200 mg/dL LAB CHEMISTRY METHOD 01/12/2025 3:28 PM EDT [facility] Triglycerides 156(H) 0 - 150 mg/dL LAB CHEMISTRY METHOD 01/12/2025 3:28 PM EDT [facility] HDL 47 >=40 mg/dL LAB CHEMISTRY METHOD 01/12/2025 3:28 PM EDT [facility] LDL Calculated 75 0 - 100 mg/dL LAB CHEMISTRY METHOD 01/12/2025 3:28 PM EDT [facility] Comment:Estimated LDL Calcul ated using equation: Total cholesterol - HDL cholesterol - (Triglycerides/5) VLDL Cholesterol Socrates 31.2 mg/dL LAB CHEMISTRY METHOD 01/12/2025 3:28 PM EDT [facility] Non HDL Chol. (LDL+VLDL) 106 <145 mg/dL LAB CHEMISTRY METHOD 01/12/2025 3:28 PM EDT [facility] Chol/HDL Ratio 3.3 0.0 - 4.4 LAB CHEMISTRY METHOD 01/12/2025 3:28 PM EDT [facility] Blood Venous blood specimen / Unknown Venipuncture / Unknown 01/12/2025 12:12 PM EDT 01/12/2025 12:32 PM EDT us Joe Uriarte GEAR GENERATOR SET UP OPERATOR LAB BLOOD ORDERABLES Final Re sult [facility] [address] [place] [address], [place] [phone] * (ABNORMAL) CBC auto differential (01/12/2025 12:12 PM EDT) WBC 4.7(L) 4.8 - 10.8 K/mcL LAB HEMETOLOGY METHOD 01/12/2025 1:52 PM EDT [facility] RBC 4.80 4.50 - 5.50 M/mcL LAB HEMETOLOGY METHOD 01/12/2025 1:52 PM EDT [facility] Hemoglobin 15.6 13.5 - 17.5 g/dL LAB HEMETOLOGY METHOD 01/12/2025 1:52 PM EDT [facility] Hematocrit 45.8 42.0 - 54.0 % LAB HEMETOLOGY METHOD 01/12/2025 1:52 PM EDT [facility] MCV 94.8 79.0 - 98.0 FL LAB [facility]ETOLOGY [facility] MCH 32.3(H) 27.0 - 32.0 pcg LAB HEMETOLOGY METHOD 01/12/2025 1:52 PM EDT [facility] MCHC 34.1 32.0 - 37.0 g/dL LAB HEMETOLOGY METHOD 01/12/2025 1:52 PM [facility] RDW 13.6 11.0 - 15.0 % LAB HEMETOLOGY METHOD 01/12/2025 1:52 PM [facility] Platelets 179 130 - 400 K/mcL LAB HEMETOLOGY METHOD 01/12/2025 1:52 PM [facility] MPV 11.6(H) 7.0 - 11.0 FL LAB HEMETOLOGY METHOD [facility]/12[facility]2025 [facility] NRBC 0.0 <1.0 % LAB HEMETOLOGY METHOD 01/12/2025 1:52 PM [facility] NRBC Absolute 0.00 <0.10 K/mcL LAB HEMETOLOGY METHOD 01/12/2025 1:52 PM T [facility] Neutrophils Relative 55.2 % LAB HEMETOLOGY METHOD [facility]/12[facility]2025 [facility] Lymphocytes Relative 30.6 % LAB HEMETOLOGY METHOD 01/12/2025 1:52 PM [facility] Monocytes Relative 10.6 % LAB HEMETOLOGY METHOD 01/12[facility]2025 1:[facility] Eosinophils Relative 2.8 % LAB HEMETOLOGY METHOD 01/12/2025 1:52 PM EDT [facility] Basophils Relative 0.2 % LAB HEMETOLOGY METHOD 01/12/2025 1:52 PM EDT [facility] Immature Granulocytes Relative 0.6 % LAB HEMETOLOGY METHOD 01/12/2025 1:52 PM EDT [facility] Neutrophils Absolute 2.59 1.50 - 7.00 K/mcL LAB HEMETOLOGY METHOD 01/12/2025 1:52 PM EDT [facility] Lymphocytes Absolute 1.44 1.00 - 5.00 K/mcL LAB HEMETOLOGY METHOD 01/12/2025 1:52 PM EDT [facility] Monocytes Absolute 0.50 0.20 - 1.00 K/mcL LAB HEMETOLOGY METHOD 01/12/2025 1:52 PM EDT [facility] Eosinophils Absolute 0.13 0.00 - 0.50 K/mcL LAB HEMETOLOGY METHOD 01/12/2025 1:52 PM EDT [facility] Basophils Absolute 0.01 0.00 - 0.20 K/mcL LAB HEMETOLOGY METHOD 01/12/2025 1:52 PM EDT [facility] Immature Granulocytes Absolute 0.03 0.00 - 0.03 K/mcL LAB HEMETOLOGY METHOD 01/12/2025 1:52 PM EDT [facility] Blood Venous blood specimen / Unknown Venipuncture / Unknown 01/12/2025 12:12 PM EDT 01/12/2025 12:32 PM EDT us Joe Uriarte NP LAB BLOOD ORDERABLES Final Re sult [facility] [address] [place] [address], * (ABNORMAL) Vitamin D 25 hydroxy (01/12/2025 12:12 PM EDT) [facility] Vit D, 25-Hydroxy 28.6(L) 30.0 - 80.0 ng/mL LAB CHEMISTRY METHOD 01/12/2025 4:58 PM EDT [facility] Blood Venous blood specimen / Unknown Venipuncture / Unknown 01/12/2025 12:12 PM EDT 01/12/2025 12:32 PM EDT Joe Uriarte GEAR GENERATOR SET UP OPERATOR LAB BLOOD ORDERABLES Final Re sult Performing Organization Address [facility]/ZIP Co de Phone Number [facility] [address] [place] [address], [place] [phone] * Thyroid stimulating hormone (01/12/2025 12:12 PM EDT) [facility] TSH 1.55 0.40 - 4.00 mcIU/mL LAB CHEMISTRY METHOD 01/12/2025 4:58 PM EDT [facility] Blood Venous blood specimen / Unknown Venipuncture / Unknown 01/12/2025 12:12 PM EDT 01/12/2025 12:32 PM EDT us Joe Uriarte NP LAB BLOOD ORDERABLES Final Re sult Performing Organization Address [facility] Co de Phone Number [facility] [address] [place] [address], [place] [phone] * Hemoglobin A1c (01/12/2025 12:12 PM EDT) [facility] Hemoglobin A1C 5.7 <6.5 % LAB CHEMISTRY METHOD 01/12/2025 2:59 PM EDT [facility] Mean Bld Glu Estim. 117 mg/dL LAB CHEMISTRY METHOD 01/12/2025 2:59 PM EDT [facility] Blood Venous blood specimen / Unknown Venipuncture / Unknown 01/12/2025 12:12 PM EDT 01/12/2025 12:32 PM EDT us Joe Uriarte GEAR GENERATOR SET UP OPERATOR LAB BLOOD ORDERABLES Final Re sult [facility] [address] [place] [address], [place] [phone] * Comprehensive metabolic panel (01/12/2025 12:12 PM EDT) Sodium 139 133 - 145 mmol/L LAB CHEMISTRY METHOD 01/12/2025 4:25 PM EDT [facility] Potassium 4.3 3.5 - 5.5 mmol/L LAB CHEMISTRY METHOD 01/12/2025 4:25 PM EDT [facility] Chloride 107 96 - 110 mmol/L LAB CHEMISTRY METHOD 01/12/2025 4:25 PM [facility] CO2 26 21 - 32 mmol/L LAB CHEMISTRY METHOD 01/12/2025 4:25 PM [facility] Anion Gap 6 3 - 11 LAB CHEMISTRY METHOD 01/12/2025 4:25 PM [facility] Glucose 93 70 - 100 mg/dL LAB CHEMISTRY METHOD 01/12/2025 4:25 PM [facility] BUN 19 5 - 25 mg/dL LAB CHEMISTRY METHOD 01/12/2025 4:25 PM [facility] Creatinine 1.01 0.70 - 1.30 mg/dL LAB CHEMISTRY METHOD 01/12/2025 4:25 PM [facility] eGFR 80 >=60 mL/min/1. 73m2 LAB CHEMISTRY METHOD 01/12/2025 4:25 PM [facility] Comment:Calculation based on the Chronic Kidney Disease Epidemiology Collaboration (CKD-EPI) equation refit without adjustment for race. BUN/Creatinine Ratio 18.8 LAB CHEMISTRY METHOD 01/12/2025 4:25 PM [facility] Calcium 9.8 8.5 - 10.5 mg/dL LAB CHEMISTRY METHOD 01/12/2025 4:25 PM EDT [facility] AST (SGOT) 25 10 - 42 unit/L LAB CHEMISTRY METHOD 01/12/2025 4:25 PM EDT [facility] ALT (SGPT) 46 10 - 60 unit/L LAB CHEMISTRY METHOD 01/12/2025 4:25 PM EDT [facility] Alkaline Phosphatase 61 42 - 121 unit/L LAB CHEMISTRY METHOD 01/12/2025 4:25 PM EDT [facility] Total Protein 7.3 6.0 - 8.0 g/dL LAB CHEMISTRY METHOD 01/12/2025 4:25 PM EDT [facility] Albumin 4.4 3.2 - 5.0 g/dL LAB CHEMISTRY METHOD 01/12/2025 4:25 PM EDT [facility] Total Bilirubin 1.1 0.0 - 1.4 mg/dL LAB CHEMISTRY METHOD 01/12/2025 4:25 PM EDT [facility] Blood Venous blood specimen / Unknown Venipuncture / Unknown 01/12/2025 12:12 PM EDT 01/12/2025 12:32 PM EDT Joe Uriarte GEAR GENERATOR SET UP OPERATOR LAB BLOOD ORDERABLES Final Re sult [facility] [address] [place] [address], * External Colonoscopy Report (07/24/2024 10:36 AM [...] currently active code status orders. Care Teams Turret Punch Press Operator Relationship Specialty Start Date End Date Joe Uriarte NP [address] [address] PCP - General Nurse Practitioner 08/08/24
--- OUTSIDE RECORDS SUMMARY | 2025-02-04 16:14 | XMS_ITS | Encounter Summary ---
Author Organization [facility] Address [address] [place] [address] Care Team Providers Care Lead Machinist Name Role Phone [facility], Pcp Primary Care Provider Manolo e Amber Wood MD Primary Care Provider Joe Nails NP Unavailable Unavailable Amber Wood MD Unavailable Unavailab Joe Treviño NP Primary Care Provider Agustin Zacarias MD Primary Care Provider Unavailabl e Reason for Visit * Reason Onset Date Comments Letter 02/16/2021 Encounter Details Date Type Department Care Team Description 02/16/2021 Telephone Rheumatology - [address] [address] Aren Hawley MD Letter Social History Tobacco [...] office note from Dr Hawley faxed to [employer] at [phone] Spoke with patient and requested this to be faxed He also states Dr Conway suggesting hand surgery for his carpal tunnel Referral pending * Telephone Encounter - Ame Sorto L.P.N. - 02/16/2021 2:54 PM EDT Spoke with [employer] at [phone] They will send fax to office re [...] on filedocumented in this encounter Care Teams Lead Machinist Relationship Specialty Start Date End Date [facility], Pcp PCP - General Internal Medicine [...]
--- OUTSIDE RECORDS SUMMARY | 2025-02-04 16:14 | XMS_ITS | Encounter Summary ---
Author Organization [facility] Address [address] [place] [address] Care Team Providers Care Second Shift Supervisor Name Role Phone Amber Wood MD Unavailable Unavailab Joe Treviño NP Primary Care Provider Agustin Zacarias MD Primary Care Provider Unavailabl e Encounter Details Date Type Department Care Team Description 06/09/2022 Appeals Manager Report Medical Records [address] [place] [id number] Abstract, Provider Social History Tobacco Use Types [...] on filedocumented in this encounter Care Teams Second Shift Supervisor Relationship Specialty Start Date End Date Joe Uriarte NP PCP - General Family Practice 12/07/21 08/10/22 Agustin Mcfarlane MD PCP - General Internal Medicine 08/11/22 Amber Wood MD Internal Medicine 12/07/21 documented as of this encounter
--- OUTSIDE RECORDS SUMMARY | 2025-02-04 16:15 | XMS_ITS | Patient Health Record ---
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 substitutions Although every attempt has been made by the provider to proofread this document, occasional misspellings and typographical errors may still be present Due to the previous pandemic, and the use of personal protective equipment (PPE) This may decrease voice recognition accuracy Inadvertent cash applications clerk errors may occur 12/17/2024 Rheumatoid arthritis without [...] software and direct typing Please excuse inadvertent cash applications clerk or typing errors, or uncorrected word substitutions Although every attempt has been made by the provider to proofread this document, occasional misspellings and typographical errors may still be present Due to the previous pandemic, and the use of personal protective equipment (PPE) This may decrease voice recognition accuracy Inadvertent cash applications clerk errors may occur 02/03/2025 Rheumatoid arthritis without [...] software and direct typing Please excuse inadvertent cash applications clerk or typing errors, or uncorrected word substitutions Although every attempt has been made by the provider to proofread this document, occasional misspellings and typographical errors may still be present Due to the previous pandemic, and the use of personal protective equipment (PPE) This may decrease voice recognition accuracy Inadvertent cash applications clerk errors may occur 02/03/2025 Rheumatoid arthritis without [...] software and direct typing Please excuse inadvertent cash applications clerk or typing errors, or uncorrected word substitutions Although every attempt has been made by the provider to proofread this document, occasional misspellings and typographical errors may still be present Due to the previous pandemic, and the use of personal protective equipment (PPE) This may decrease voice recognition accuracy Inadvertent cash applications clerk errors may occur 12/17/2024 Rheumatoid arthritis without [...] software and direct typing Please excuse inadvertent cash applications clerk or typing errors, or uncorrected word substitutions Although every attempt has been made by the provider to proofread this document, occasional misspellings and typographical errors may still be present Due to the previous pandemic, and the use of personal protective equipment (PPE) This may decrease voice recognition accuracy Inadvertent cash applications clerk errors may occur 07/21/2024 Rheumatoid arthritis without [...] software and direct typing Please excuse inadvertent cash applications clerk or typing errors, or uncorrected word substitutions Although every attempt has been made by the provider to proofread this document, occasional misspellings and typographical errors may still be present Due to the previous pandemic, and the use of personal protective equipment (PPE) This may decrease voice recognition accuracy Inadvertent cash applications clerk errors may occur 03/27/2024 Rheumatoid arthritis without [...] software and direct typing Please excuse inadvertent cash applications clerk or typing errors, or uncorrected word substitutions Although every attempt has been made by the provider to proofread this document, occasional misspellings and typographical errors may still be present Due to the previous pandemic, and the use of personal protective equipment (PPE) This may decrease voice recognition accuracy Inadvertent cash applications clerk errors may occur 03/27/2024 Hx of prostatic [...] software and direct typing Please excuse inadvertent cash applications clerk or typing errors, or uncorrected word substitutions Although every attempt has been made by the provider to proofread this document, occasional misspellings and typographical errors may still be present Due to the previous pandemic, and the use of personal protective equipment (PPE) This may decrease voice recognition accuracy Inadvertent cash applications clerk errors may occur 07/21/2024 Hx of prostatic [...] software and direct typing Please excuse inadvertent cash applications clerk or typing errors, or uncorrected word substitutions Although every attempt has been made by the provider to proofread this document, occasional misspellings and typographical errors may still be present Due to the previous pandemic, and the use of personal protective equipment (PPE) This may decrease voice recognition accuracy Inadvertent cash applications clerk errors may occur 02/03/2025 Rheumatoid arthritis without [...] software and direct typing Please excuse inadvertent cash applications clerk or typing errors, or uncorrected word substitutions Although every attempt has been made by the provider to proofread this document, occasional misspellings and typographical errors may still be present Due to the previous pandemic, and the use of personal protective equipment (PPE) This may decrease voice recognition accuracy Inadvertent cash applications clerk errors may occur 12/17/2024 Hx of prostatic [...] software and direct typing Please excuse inadvertent cash applications clerk or typing errors, or uncorrected word substitutions Although every attempt has been made by the provider to proofread this document, occasional misspellings and typographical errors may still be present Due to the previous pandemic, and the use of personal protective equipment (PPE) This may decrease voice recognition accuracy Inadvertent cash applications clerk errors may occur 12/17/2024 S/P TURP (status [...] software and direct typing Please excuse inadvertent cash applications clerk or typing errors, or uncorrected word substitutions Although every attempt has been made by the provider to proofread this document, occasional misspellings and typographical errors may still be present Due to the previous pandemic, and the use of personal protective equipment (PPE) This may decrease voice recognition accuracy Inadvertent cash applications clerk errors may occur 02/03/2025 Hx of prostatic [...] software and direct typing Please excuse inadvertent cash applications clerk or typing errors, or uncorrected word substitutions Although every attempt has been made by the provider to proofread this document, occasional misspellings and typographical errors may still be present Due to the previous pandemic, and the use of personal protective equipment (PPE) This may decrease voice recognition accuracy Inadvertent cash applications clerk errors may occur 07/21/2024 S/P TURP (status [...] software and direct typing Please excuse inadvertent cash applications clerk or typing errors, or uncorrected word substitutions Although every attempt has been made by the provider to proofread this document, occasional misspellings and typographical errors may still be present Due to the previous pandemic, and the use of personal protective equipment (PPE) This may decrease voice recognition accuracy Inadvertent cash applications clerk errors may occur 03/27/2024 S/P TURP (status [...] software and direct typing Please excuse inadvertent cash applications clerk or typing errors, or uncorrected word substitutions Although every attempt has been made by the provider to proofread this document, occasional misspellings and typographical errors may still be present Due to the previous pandemic, and the use of personal protective equipment (PPE) This may decrease voice recognition accuracy Inadvertent cash applications clerk errors may occur 03/27/2024 Prediabetes (ICD-10 - [...] software and direct typing Please excuse inadvertent cash applications clerk or typing errors, or uncorrected word substitutions Although every attempt has been made by the provider to proofread this document, occasional misspellings and typographical errors may still be present Due to the previous pandemic, and the use of personal protective equipment (PPE) This may decrease voice recognition accuracy Inadvertent cash applications clerk errors may occur 07/21/2024 Prediabetes (ICD-10 - [...] software and direct typing Please excuse inadvertent cash applications clerk or typing errors, or uncorrected word substitutions Although every attempt has been made by the provider to proofread this document, occasional misspellings and typographical errors may still be present Due to the previous pandemic, and the use of personal protective equipment (PPE) This may decrease voice recognition accuracy Inadvertent cash applications clerk errors may occur 12/17/2024 Prediabetes (ICD-10 - R73.03) Acute Concerns/Problem List: 12/17/2024 Ordered comprehensive labs and scheduled physical for Jan 2025 Porvided patient with date, time, and location of ENT appointment Status post L3-L4 microdiscectomy with excellent results, And pain resolution Continue with supportive care and pain medications RA, chronically managed by rheumatology getting monthly infusions Otherwise chronic conditions are stable [facility] and Filed Of note, some information is being carried forward from prior records for informational purposes only and is being cited so that efficiency, safety and quality of the patient's care is not compromised This note was prepared using voice recognition software and direct typing Please excuse inadvertent cash applications clerk or typing errors, or uncorrected word substitutions Although every attempt has been made by the provider to proofread this document, occasional misspellings and typographical errors may still be present Due to the previous pandemic, and the use of personal protective equipment (PPE) This may decrease voice recognition accuracy Inadvertent cash applications clerk errors may occur 02/03/2025 S/P TURP (status [...] software and direct typing Please excuse inadvertent cash applications clerk or typing errors, or uncorrected word substitutions Although every attempt has been made by the provider to proofread this document, occasional misspellings and typographical errors may still be present Due to the previous pandemic, and the use of personal protective equipment (PPE) This may decrease voice recognition accuracy Inadvertent cash applications clerk errors may occur 02/03/2025 Prediabetes (ICD-10 - [...] software and direct typing Please excuse inadvertent cash applications clerk or typing errors, or uncorrected word substitutions Although every attempt has been made by the provider to proofread this document, occasional misspellings and typographical errors may still be present Due to the previous pandemic, and the use of personal protective equipment (PPE) This may decrease voice recognition accuracy Inadvertent cash applications clerk errors may occur 12/17/2024 Erectile dysfunction following [...] software and direct typing Please excuse inadvertent cash applications clerk or typing errors, or uncorrected word substitutions Although every attempt has been made by the provider to proofread this document, occasional misspellings and typographical errors may still be present Due to the previous pandemic, and the use of personal protective equipment (PPE) This may decrease voice recognition accuracy Inadvertent cash applications clerk errors may occur 07/21/2024 Erectile dysfunction following [...] software and direct typing Please excuse inadvertent cash applications clerk or typing errors, or uncorrected word substitutions Although every attempt has been made by the provider to proofread this document, occasional misspellings and typographical errors may still be present Due to the previous pandemic, and the use of personal protective equipment (PPE) This may decrease voice recognition accuracy Inadvertent cash applications clerk errors may occur 03/27/2024 Erectile dysfunction following [...] software and direct typing Please excuse inadvertent cash applications clerk or typing errors, or uncorrected word substitutions Although every attempt has been made by the provider to proofread this document, occasional misspellings and typographical errors may still be present Due to the previous pandemic, and the use of personal protective equipment (PPE) This may decrease voice recognition accuracy Inadvertent cash applications clerk errors may occur 03/27/2024 Osteoporosis without current [...] software and direct typing Please excuse inadvertent cash applications clerk or typing errors, or uncorrected word substitutions Although every attempt has been made by the provider to proofread this document, occasional misspellings and typographical errors may still be present Due to the previous pandemic, and the use of personal protective equipment (PPE) This may decrease voice recognition accuracy Inadvertent cash applications clerk errors may occur 07/21/2024 Osteoporosis without current [...] software and direct typing Please excuse inadvertent cash applications clerk or typing errors, or uncorrected word substitutions Although every attempt has been made by the provider to proofread this document, occasional misspellings and typographical errors may still be present Due to the previous pandemic, and the use of personal protective equipment (PPE) This may decrease voice recognition accuracy Inadvertent cash applications clerk errors may occur 12/17/2024 Osteoporosis without current [...] software and direct typing Please excuse inadvertent cash applications clerk or typing errors, or uncorrected word substitutions Although every attempt has been made by the provider to proofread this document, occasional misspellings and typographical errors may still be present Due to the previous pandemic, and the use of personal protective equipment (PPE) This may decrease voice recognition accuracy Inadvertent cash applications clerk errors may occur 02/03/2025 Erectile dysfunction following [...] software and direct typing Please excuse inadvertent cash applications clerk or typing errors, or uncorrected word substitutions Although every attempt has been made by the provider to proofread this document, occasional misspellings and typographical errors may still be present Due to the previous pandemic, and the use of personal protective equipment (PPE) This may decrease voice recognition accuracy Inadvertent cash applications clerk errors may occur 02/03/2025 Osteoporosis without current [...] software and direct typing Please excuse inadvertent cash applications clerk or typing errors, or uncorrected word substitutions Although every attempt has been made by the provider to proofread this document, occasional misspellings and typographical errors may still be present Due to the previous pandemic, and the use of personal protective equipment (PPE) This may decrease voice recognition accuracy Inadvertent cash applications clerk errors may occur 12/17/2024 Encounter for examination [...] software and direct typing Please excuse inadvertent cash applications clerk or typing errors, or uncorrected word substitutions Although every attempt has been made by the provider to proofread this document, occasional misspellings and typographical errors may still be present Due to the previous pandemic, and the use of personal protective equipment (PPE) This may decrease voice recognition accuracy Inadvertent cash applications clerk errors may occur 03/27/2024 Essential (primary) hypertension [...] software and direct typing Please excuse inadvertent cash applications clerk or typing errors, or uncorrected word substitutions Although every attempt has been made by the provider to proofread this document, occasional misspellings and typographical errors may still be present Due to the previous pandemic, and the use of personal protective equipment (PPE) This may decrease voice recognition accuracy Inadvertent cash applications clerk errors may occur 02/03/2025 Encounter for examination [...] software and direct typing Please excuse inadvertent cash applications clerk or typing errors, or uncorrected word substitutions Although every attempt has been made by the provider to proofread this document, occasional misspellings and typographical errors may still be present Due to the previous pandemic, and the use of personal protective equipment (PPE) This may decrease voice recognition accuracy Inadvertent cash applications clerk errors may occur 10/17/2024 Acute Concerns/Problem List: [...] software and direct typing Please excuse inadvertent cash applications clerk or typing errors, or uncorrected word substitutions Although every attempt has been made by the provider to proofread this document, occasional misspellings and typographical errors may still be present Due to the previous pandemic, and the use of personal protective equipment (PPE) This may decrease voice recognition accuracy Inadvertent cash applications clerk errors may occur Plan Of Treatment Pending Test Test Name Order Date Barium Swallow 06/16/2024 X ray : Spines, lumbar 01/03/2024 25OH VITAMIN D 08/22/2023 25OH VITAMIN D 06/14/2023 CBC (COMPLETE BLOOD COUNT) WITH DIFF CBC (COMPLETE BLOOD COUNT) WITH DIFF COMPREHENSIVE METABOLIC PANEL 08/22/2023 COMPREHENSIVE METABOLIC PANEL 06/14/2023 HEMOGLOBIN A1C 06/14/2023 HEMOGLOBIN A1C 08/22/2023 HEMOGLOBIN A1C 03/07/2022 LIPID PANEL 06/14/2023 LIPID PANEL 08/22/2023 TSH 08/22/2023 TSH 06/14/2023 URINALYSIS W/REFLEX CULTURE 06/14/2023 URINALYSIS W/REFLEX CULTURE 08/22/2023 Chest 2 Views Frontal and Lat 11/03/2022 CT Chest w/o Contrast 05/08/2024 US Abdomen Complete 03/17/2024 LIPID PANEL, STANDARD 07/21/2024 LIPID PANEL, STANDARD 10/18/2021 LIPID PANEL, STANDARD 12/17/2024 MICROALBUMIN, RANDOM URINE (W/CREATININE ) 10/18/2021 COMPREHENSIVE METABOLIC PANEL 10/18/2021 COMPREHENSIVE METABOLIC PANEL 07/21/2024 COMPREHENSIVE METABOLIC PANEL 12/17/2024 CBC (INCLUDES DIFF/PLT) 12/17/2024 CBC (INCLUDES DIFF/PLT) 07/21/2024 CBC (INCLUDES DIFF/PLT) 10/18/2021 URINALYSIS, COMPLETE 10/18/2021 URINALYSIS, COMPLETE 07/21/2024 URINALYSIS, COMPLETE 12/17/2024 HEMOGLOBIN A1c 12/17/2024 HEMOGLOBIN A1c 07/21/2024 HEMOGLOBIN A1c 10/18/2021 T4, FREE 10/18/2021 TSH 10/18/2021 TSH 07/21/2024 TSH 12/17/2024 VITAMIN D,25-OH,TOTAL,IA 07/21/2024 VITAMIN D,25-OH,TOTAL,IA 12/17/2024 VITAMIN [...] 12/07/2022 Next Appt Details Provider Name:GLENN KINGSLEY, 06/04/2025 03:30:00 PM, [address] [facility], [facility] [address], [place], [address], Insurance Providers Payer Name Payer Address Payer Phone Subscriber Number Group Number Insured Name Patient Relationship to Insured Coverage Start Date Coverage End Date Medicare Part B J14 [address] [place] [address] [id number] Garrett Cortez Self - patient is the insured [employer] [place] [address] [place] [address] [id number] Garrett Cortez Self - patient is the insured Medical (General) History Medical History History ICD Code hyperlipidemia prostate cancer hemorrhoids Arthritis rheumatoid arthritis gastroesophageal reflux disease (GERD) Surgical History Surgery Date(Month/Year) Prostate Surgery Inguinal Hernia surgery Hemorrhoidectomy Heart Ablation
== END 2025-02-04 14:08 | disposition home or self-care (01) ==
LOC: HO.RHES 13:16
PROVIDERS: PCP Internal Medicine Rheumatology; Visit Provider Student in an Organized Health Care Education/Training Program
DX: M06.09 Rheumatoid arthritis without rheumatoid factor, multiple sites (principal); Z22.7 Latent tuberculosis; M79.7 Fibromyalgia; Z51.81 Encounter for therapeutic drug level monitoring; Z79.631 Long term (current) use of antimetabolite agent; Z79.60 Long term (current) use of unspecified immunomodulators and immunosuppressants
CPT/HCPCS: 99214; G2211

== ENCOUNTER → 2025-02-04 13:15 | Outpatient (BNVA) | payer MEDICARE, MEDICAID, SELFPAY | PROVIDERS: PCP Internal Medicine Rheumatology; Visit Provider Student in an Organized Health Care Education/Training Program | DX: M06.09 Rheumatoid arthritis without rheumatoid factor, multiple sites (principal); Z22.7 Latent tuberculosis; M79.7 Fibromyalgia; Z51.81 Encounter for therapeutic drug level monitoring; Z79.631 Long term (current) use of antimetabolite agent; Z79.60 Long term (current) use of unspecified immunomodulators and immunosuppressants | CPT/HCPCS: 99212 ==